=== PATIENT | female | born 1980 | race Caucasian/White ===

== ENCOUNTER → 2017-09-11 | Outpatient (CLI) | payer MEDICARE ==
[~2017-09-11] MED LIST: CAL25 FT; CEPH500T7 PO; CHOL378P6 PO; CLON-308 PO; CYCL10TA29 PO; DIA5 PO; DICL-195 PO; DICY20TA70 PO; DIPH-1 PO; DIPH-543 PO; ERGO500037 PO; FLUC150T40 PO; FLUV50TA18 PO; GLYC1TAB13 PO; HYDR-2966 PO; IBUP800T37 PO; IOPAMIDOL 76% 75 ML INFUS BTL 75 ML ONE; LAMOT150PT PO; LEVO-3 PO; LEVO50TA86 PO; LEVO75TA73 PO; LIPA1CAP8 PO; LIT300CAP PO; LITH600C6 PO; LOR5/325 PO; LOSA25TA50 PO; LOSA50TA72 PO; MINO100C27 PO; NEBI5TAB PO; NS 0.9% 50 ML VIAL 50 ML ONE; OMEP40CA48 PO; ONDA4TAB97 PO; ONDA8TAB91 PO; ONDA8TAB98 PO; PERP4TAB37 PO; PERP8TAB PO; POTA-28 PO; POTA20TA94 PO; PRED20TA6 PO; PROM-110 PO; PROM12.556 PO; RANI150C17 PO; SUCR1TAB85 PO; SULF-198 PO; TRAM-420 PO; TRAM-627 PO
--- NOTE | 2017-09-11 16:58 | RADIOLOGY IMAGING REPORT ---
FACILITY: [facility] - [place], [place] PATIENT NAME: Kriss Azevedo : 1980 MR: [id number] V: [id number] EXAM DATE: ORDERING PHYSICIAN: VILMA ROWAN TECHNOLOGIST: Location: [facility] [place] Patient: Kriss Azevedo : 1980 Visit/Account:[id number] Date of Sevice: 09/11/2017 ABDOMEN/PELVIS WITH CONTRAST HISTORY: Right upper quadrant pain x5 days TECHNIQUE: Following administration of IV contrast contiguous axial images acquired through the abdom en/pelvis. Coronal and sagittal reformatting also performed. One of the following dose optimization techniques was utilized in the performance of this exam: Automated exposure control; adjustment of t he mA and/or kV according to the patient's size; or use of an iterative reconstruction technique. S pecific details can be referenced in the facility's radiology CT exam operational policy. CONTRAST: 75 mL Isovue-370 COMPARISON: None. FINDINGS: Visualized lung bases: Negative. Hepatobiliary: There is diffuse decreased attenuation through the liver compatible with hepatic stea tosis. No focal liver lesions are seen. Gallbladder is not identified and patient may be status post cholecystectomy. Spleen: Negative. Adrenals: Negative. Pancreas: Negative. Kidneys ureters or bladder: Both kidneys have numerous small circumscribed hypodense nodules scattere d through the renal cortices. There are approximately 20 small nodules in each kidney most measuring only several millimeters in diameter although the largest in the right kidney measures 1.2 cm in larg est in the left kidney measures 1.0 cm diameter. Density measurements range from near water to almost 50 Hounsfield units. Genitalia: Remote partial hysterectomy. The ovaries remain in place. There is a 1.6 cm hyperdense no dule in the right ovary which may represent a hemorrhagic cyst. There is a small amount of adjacent f ree fluid. GI: Surgical clip is seen at the cecum consistent with a previous appendectomy. Colon otherwise unre markable. Small bowel normal. Vessels/spaces/nodes: Negative. Bones/soft tissues: Negative. Additional findings: None pertinent. IMPRESSION: Hepatic steatosis. No other pathology seen in the right upper quadrant to explain patient's right upp er quadrant pain. Evidence of previous partial hysterectomy but I believe the ovaries remain in place. Patient probably has a small hemorrhagic follicle in the right ovary with small amount of free fluid in the pelvis. Numerous small nodules of varying densities in both kidneys as described above but all are hypodense to the contrasted cortical parenchyma. These may represent numerous small proteinaceous cysts and levin ses the possibility of a polycystic kidney disease variant or incomplete penetrance. Correlate with a ny family history. I would suggest sonographic surveillance with possible follow-up study in 6-12 mon ths. Report Dictated By: Anoop Retana MD at 09/11/2017 4:29 PM Report E-Signed By: Anoop Retana MD at 09/11/2017 4:52 PM WSN:[id number]
== END ==
LOC: CT 01:14
PROVIDERS: ATTEND Surgery
DX: K76.0 Fatty (change of) liver, not elsewhere classified (principal); N28.89 Other specified disorders of kidney and ureter; Z90.49 Acquired absence of other specified parts of digestive tract; Z90.710 Acquired absence of both cervix and uterus
CPT/HCPCS: J7050; Q9967; 74177

== ENCOUNTER 2017-10-01 19:06 | Emergency (ER) | payer MEDICARE, MEDICAID ==
[~2017-10-01 19:06] MED LIST changes: +CARV12.578 PO; -IOPAMIDOL 76% 75 ML INFUS BTL 75 ML ONE; -NS 0.9% 50 ML VIAL 50 ML ONE
--- NOTE | 2017-10-01 19:41 | ER Report ---
History and Physical Time Seen By MD: 19:40 Hx. of Stated Complaint: Patient reporting N/v/d and extreme thirst. HPI/ROS CHIEF COMPLAINT: Diarrhea HISTORY OF PRESENT ILLNESS: 37-year-old female patient presents to emergency room with complaint of diarrhea. Patient states she's been having for large bouts of diarrhea today. She states that she was feeling fine yesterday. She denies having any fevers, chills, nausea or vomiting. She states she has taken the medication which was prescribed for her diarrhea. She states there that there was no improvement with the medication. She states that she was in contact with Dr. Rowan, general surgeon, who recommended that she come in to the emergency room for further evaluation with labs and stool culture. REVIEW OF SYSTEMS: Respiratory: No cough, no dyspnea. Cardiovascular: No chest pain, no palpitations. Gastrointestinal: As noted above Musculoskeletal: No back pain. Allergies: Coded Allergies: aripiprazole (Verified Allergy, Unknown, FACIAL AND NECK SWELLING, 02/04/16 ) asenapine (Verified Allergy, Unknown, NUMB TONGUE, 02/04/16) gabapentin (Verified Allergy, Unknown, MANIC, 02/04/16) hydralazine (Verified Allergy, Unknown, 02/04/16) paliperidone (Verified Allergy, Unknown, SLEEPS TOO MUCH, 02/04/16) quetiapine (Verified Allergy, Unknown, EXCESSIVE EATING, 02/04/16) sertraline (Verified Allergy, Unknown, 02/04/16) ziprasidone (Verified Allergy, Unknown, EXCESSIVE SLEEPING, 02/04/16) vortioxetine (Unverified Adverse Reaction, Intermediate, 03/30/17) Rash Home Meds Active Scripts Omeprazole (OMEPRAZOLE) 40 Mg Capsule.dr, 1 CAP PO BID, #60 CAP 3 Refills Prov:VILMA ROWAN MD 07/29/17 Diphenoxylate Hcl/Atropine (LOMOTIL TABLET) 1 Each Tablet, 1-2 TAB PO TID Y for DIARRHEA, #120 TAB 5 Refills Prov:VILMA ROWAN MD 07/29/17 Cholestyramine (With Sugar) (CHOLESTYRAMINE POWDER) 378 Gm Powder, 4 GM PO QID, #378 GM 3 Refills Take 4 times/day before eating Prov:VILMA ROWAN MD 07/14/17 Glycopyrrolate (GLYCOPYRROLATE) 1 Mg Tablet, 1 TAB PO QPM, #30 TAB 6 Refills Prov:VILMA ROWAN MD 06/09/17 Lipase/Protease/Amylase (MELINDA MEEKS 36,000 UNITS CAPSULE) 1 Each Capsule.dr, 1 CAP PO QID, #120 CAP 6 Refills Take 1 capsule before meals, 4 times every day Prov:VILMA ROWAN MD 06/06/17 Promethazine Hcl (PROMETHAZINE HCL) 25 Mg Tablet, 1 TAB PO Q8H Y for NAUSEA/ VOMITING, #30 TAB 3 Refills Prov:VILMA ROWAN MD 06/03/17 Cephalexin 500 Mg Tab (KEFLEX 500 MG TAB) 500 Mg Tablet, 500 MG PO TID for infection, #15 TAB Prov:DEBBY PINZON DO 03/30/17 Reported Medications Carvedilol (CARVEDILOL) 12.5 Mg Tablet, 12.5 MG PO BID, #10 TAB 09/17/17 Perphenazine (PERPHENAZINE) 8 Mg Tablet, 8 MG PO 03/30/17 Losartan Potassium (LOSARTAN POTASSIUM) 50 Mg Tablet, 50 MG PO QDAY 03/30/17 Mead Carbonate (LITHIUM CARBONATE) 600 Mg Capsule, 900 MG PO QDAY, CAPSULE 03/30/17 Levothyroxine Sodium (LEVOTHYROXINE SODIUM) 75 Mcg Tablet, 75 MCG PO QDAY, TAB 03/30/17 Calcitriol (CALCITRIOL) 0.25 Mcg Cap, 0.25 MCG FT QDAY, CAP 01/13/17 Ondansetron Hcl (ZOFRAN) 8 Mg Tablet, 8 MG PO Q12H, TAB 11/20/15 Minocycline Hcl (MINOCYCLINE HCL) 100 Mg Capsule, 200 MG PO BID, CAPSULE 11/20/15 Fluvoxamine Maleate (FLUVOXAMINE MALEATE) 50 Mg Tablet, 50 MG PO QDAY 07/20/15 Minocycline Hcl (MINOCYCLINE HCL) 100 Mg Capsule, 100 MG PO BID, CAPSULE 07/20/15 Clonazepam (CLONAZEPAM) 2 Mg Tablet, 2 MG PO PRN, #6 TAB 07/20/15 Lamotrigine (LAMICTAL) 150 Mg Tablet, 150 MG PO BID 07/20/15 Omeprazole (OMEPRAZOLE) 40 Mg Capsule.dr, 40 MG PO BID, CAP 07/20/15 Past Medical/Surgical History Patient has a past medical history of seizures, hypertension, irritable bowel, reflux, chronic kidney disease, parathyroid tumor, hypothyroidism, PTSD, bipolar , MEN1 cancer, parathyroid tumors. Patient has a surgical history of breast implants, jaw and nose reconstruction, silicone implant and chin, hysterectomy, cholecystectomy, appendectomy, chemotherapy port installed. Reviewed Nurses Notes: Yes Hx Smoking: No Smoking Status: Never Smoker Exposure to Second Hand Smoke?: No Hx Substance Use Disorder: No Hx Alcohol Use: No Constitutional Vital Sign - Last 24 Hours 10/01/17 10/01/17 10/01/17 10/01/17 19:11 19:33 19:34 19:36 Temp 98.5 Pulse 90 98 99 Resp 20 18 B/P (MAP) 137/90 135/93 (107) 135/93 Pulse Ox 100 97 97 O2 Delivery Room Air 10/01/17 10/01/17 10/01/17 10/01/17 19:38 19:40 19:41 19:46 Pulse 91 B/P (MAP) 123/88 (100) 128/90 (103) Pulse Ox 95 100 10/01/17 10/01/17 10/01/17 10/01/17 19:51 19:56 20:01 20:06 Pulse 87 86 ? Pulse Ox 97 95 10/01/17 10/01/17 10/01/17 10/01/17 20:11 20:20 20:21 20:26 Pulse ??? 81 78 B/P (MAP) 130/84 (99) Pulse Ox 100 98 10/01/17 10/01/17 10/01/17 10/01/17 20:31 20:36 20:40 20:46 Pulse 82 ? B/P (MAP) ???/??? (9595) Pulse Ox 95 10/01/17 10/01/17 10/01/17 10/01/17 20:51 21:00 21:01 21:06 Pulse ? B/P (MAP) ???/??? (1665) 10/01/17 10/01/17 10/01/17 10/01/17 21:11 21:20 21:21 21:26 Pulse ? B/P (MAP) ???/??? (1665) 10/01/17 10/01/17 10/01/17 10/01/17 21:30 21:31 21:36 21:41 Pulse 72 74 79 B/P (MAP) 139/91 (107) Pulse Ox 100 98 100 10/01/17 10/01/17 10/01/17 10/01/17 21:46 22:00 22:15 22:30 Pulse 76 Pulse Ox 100 100 96 94 10/01/17 10/01/17 22:35 23:07 Pulse 96 88 Resp 16 B/P (MAP) 125/89 (101) 115/78 (90) Pulse Ox 100 100 O2 Delivery Room Air Physical Exam General Appearance: The patient is alert, has no immediate need for airway protection and no current signs of toxicity. ENT: Tympanic membranes are pearly-shepard, auditory canals are patent, mucous membranes are moist. Respiratory: Chest is non tender, lungs are clear to auscultation. Cardiac: regular rate and rhythm Gastrointestinal: Abdomen is soft and non tender, no masses, bowel sounds normal. Musculoskeletal: Neck: Neck is supple and non tender. Extremities have full range of motion and are non tender. Skin: No rashes or lesions. DIFFERENTIAL DIAGNOSIS: After history and physical exam differential diagnosis was considered for nausea and vomiting including but not limited to gastroenteritis, gastritis, appendicitis, and medication side effect. Medical Decision Making Data Points Result Diagram: 10/01/17 0000 10/01/17 0000 Laboratory Hematology Test 10/01/17 00:00 10/01/17 19:15 10/01/17 19:31 Red Blood Count 3.93 M/uL (4.17-5.56) Mean Corpuscular Volume 91.1 fL (80.0-96.0) Mean Corpuscular Hemoglobin 30.5 pg (26.0-33.0) Mean Corpuscular Hemoglobin Concent 33.4 g/dL (32.0-36.0) Red Cell Distribution Width 13.2 % (11.5-14.5) Mean Platelet Volume 7.7 fL (7.2-11.1) Neutrophils (%) (Auto) 60.7 % (39.4-72.5) Lymphocytes (%) (Auto) 28.3 % (17.6-49.6) Monocytes (%) (Auto) 8.1 % (4.1-12.4) Eosinophils (%) (Auto) 2.6 % (0.4-6.7) Basophils (%) (Auto) 0.3 % (0.3-1.4) Nucleated RBC Relative Count (auto) 0.1 /100WBC Neutrophils # (Auto) 4.6 K/uL (2.0-7.4) Lymphocytes # (Auto) 2.1 K/uL (1.3-3.6) Monocytes # (Auto) 0.6 K/uL (0.3-1.0) Eosinophils # (Auto) 0.2 K/uL (0.0-0.5) Basophils # (Auto) 0.0 K/uL (0.0-0.1) Nucleated RBC Absolute Count (auto) 0.01 K/uL Sodium Level 139 mmol/L (137-145) Potassium Level 4.2 mmol/L (3.5-5.0) Chloride Level 109 mmol/L (98-107) Carbon Dioxide Level 21 mmol/L (22-31) Blood Urea Nitrogen 11 mg/dl (7-18) Creatinine 1.50 mg/dl (0.52-1.04) Glomerular Filtration Rate Calc 39.5 Random Glucose 95 mg/dl (75-110) Calcium Level 9.0 mg/dl (8.4-10.2) Total Bilirubin 0.3 mg/dl (0.2-1.3) Aspartate Amino Transf (AST/SGOT) 42 U/L (0-35) Alanine Aminotransferase (ALT/SGPT) 56 U/L (0-56) Alkaline Phosphatase 72 U/L (0-126) Total Protein 5.6 gm/dl (6.3-8.2) Albumin 2.9 g/dl (3.5-5.0) Amylase Level 83 U/L (0-110) Lipase 126 U/L (23-300) Urine Color Straw Urine Clarity Slightly-cloudy Urine pH 7.0 pH (4.8-9.5) Urine Specific [place] 1.004 Urine Protein Negative mg/dL (NEGATIVE) Urine Glucose (UA) Negative mg/dL (NEGATIVE) Urine Ketones Negative mg/dL (NEGATIVE) Urine Blood Negative (NEGATIVE) Urine Nitrite Negative (NEGATIVE) Urine Bilirubin Negative (NEGATIVE) Urine Urobilinogen Negative mg/dL (0.2-1.9) Urine Leukocyte Esterase Negative (NEGATIVE) Urine RBC <1 /HPF (0-2/HPF) Urine WBC 2 /HPF (0-5/HPF) Urine Squamous Epithelial Cells Many /LPF (</=FEW) Urine Bacteria Many /HPF (NONE-FEW) Urine Hyaline Casts Few /LPF (NONE-FEW) Urine Mucus None /HPF (NONE-FEW) Stool Occult Blood (IFOB) Negative (NEGATIVE) Stool Leukocytes, Qualitative Negative Clostridium Difficile Toxin A & B Negative Clostridium difficile Antigen Negative Chemistry Test 10/01/17 00:00 10/01/17 19:15 10/01/17 19:31 White Blood Count 7.6 k/uL (4.5-11.0) Red Blood Count 3.93 M/uL (4.17-5.56) Hemoglobin 12.0 g/dL (12.0-16.0) Hematocrit 35.8 % (34.0-47.0) Mean Corpuscular Volume 91.1 fL (80.0-96.0) Mean Corpuscular Hemoglobin 30.5 pg (26.0-33.0) Mean Corpuscular Hemoglobin Concent 33.4 g/dL (32.0-36.0) Red Cell Distribution Width 13.2 % (11.5-14.5) Platelet Count 222 K/uL (150-450) Mean Platelet Volume 7.7 fL (7.2-11.1) Neutrophils (%) (Auto) 60.7 % (39.4-72.5) Lymphocytes (%) (Auto) 28.3 % (17.6-49.6) Monocytes (%) (Auto) 8.1 % (4.1-12.4) Eosinophils (%) (Auto) 2.6 % (0.4-6.7) Basophils (%) (Auto) 0.3 % (0.3-1.4) Nucleated RBC Relative Count (auto) 0.1 /100WBC Neutrophils # (Auto) 4.6 K/uL (2.0-7.4) Lymphocytes # (Auto) 2.1 K/uL (1.3-3.6) Monocytes # (Auto) 0.6 K/uL (0.3-1.0) Eosinophils # (Auto) 0.2 K/uL (0.0-0.5) Basophils # (Auto) 0.0 K/uL (0.0-0.1) Nucleated RBC Absolute Count (auto) 0.01 K/uL Glomerular Filtration Rate Calc 39.5 Calcium Level 9.0 mg/dl (8.4-10.2) Total Bilirubin 0.3 mg/dl (0.2-1.3) Aspartate Amino Transf (AST/SGOT) 42 U/L (0-35) Alanine Aminotransferase (ALT/SGPT) 56 U/L (0-56) Alkaline Phosphatase 72 U/L (0-126) Total Protein 5.6 gm/dl (6.3-8.2) Albumin 2.9 g/dl (3.5-5.0) Amylase Level 83 U/L (0-110) Lipase 126 U/L (23-300) Urine Color Straw Urine Clarity Slightly-cloudy Urine pH 7.0 pH (4.8-9.5) Urine Specific [place] 1.004 Urine Protein Negative mg/dL (NEGATIVE) Urine Glucose (UA) Negative mg/dL (NEGATIVE) Urine Ketones Negative mg/dL (NEGATIVE) Urine Blood Negative (NEGATIVE) Urine Nitrite Negative (NEGATIVE) Urine Bilirubin Negative (NEGATIVE) Urine Urobilinogen Negative mg/dL (0.2-1.9) Urine Leukocyte Esterase Negative (NEGATIVE) Urine RBC <1 /HPF (0-2/HPF) Urine WBC 2 /HPF (0-5/HPF) Urine Squamous Epithelial Cells Many /LPF (</=FEW) Urine Bacteria Many /HPF (NONE-FEW) Urine Hyaline Casts Few /LPF (NONE-FEW) Urine Mucus None /HPF (NONE-FEW) Stool Occult Blood (IFOB) Negative (NEGATIVE) Stool Leukocytes, Qualitative Negative Clostridium Difficile Toxin A & B Negative Clostridium difficile Antigen Negative Urinalysis Test 10/01/17 19:15 Urine Color Straw Urine Clarity Slightly-cloudy Urine pH 7.0 pH (4.8-9.5) Urine Specific [place] 1.004 Urine Protein Negative mg/dL (NEGATIVE) Urine Glucose (UA) Negative mg/dL (NEGATIVE) Urine Ketones Negative mg/dL (NEGATIVE) Urine Blood Negative (NEGATIVE) Urine Nitrite Negative (NEGATIVE) Urine Bilirubin Negative (NEGATIVE) Urine Urobilinogen Negative mg/dL (0.2-1.9) Urine Leukocyte Esterase Negative (NEGATIVE) Urine RBC <1 /HPF (0-2/HPF) Urine WBC 2 /HPF (0-5/HPF) Urine Squamous Epithelial Cells Many /LPF (</=FEW) Urine Bacteria Many /HPF (NONE-FEW) Urine Hyaline Casts Few /LPF (NONE-FEW) Urine Mucus None /HPF (NONE-FEW) Microbiology Microbiology Date/Time Source Procedure Growth Status 10/01/17 19:31 Stool Stool Culture - Preliminary NORMAL SO FAR, CULTURE SET UP LATE, C... Resulted EKG/Imaging Imaging INDICATION: uncontrollable diarrhea EXAM DATE: 10/01/2017 7:51 PM COMPARISON: CT abdomen and pelvis 09/11/2017. FINDINGS: PA and lateral views of the chest, upright and supine AP views of the abdomen ( 5 images total). The lungs are well-expanded and clear. No pleural effusion or pneumothorax. Heart size is normal. Right IJ central venous catheter with port terminates in the superior vena cava. Bowel gas pattern is nonobstructive. No pneumatosis, pneumoperitoneum or portal venous gas. No evidence of large volume ascites or mass. Several air-fluid levels in the proximal colon. No acute osseous abnormality. IMPRESSION: Air-fluid levels in the proximal colon are nonspecific but could indicate colitis. Otherwise nonacute. Report Dictated By: Arjun Iniguez MD at 10/01/2017 9:26 PM Report E-Signed By: Arjun Iniguez MD at 10/01/2017 9:28 PM ED Course/Re-evaluation ED Course Patient was admitted to exam room, history and physical were obtained. Differential diagnoses were considered. On examination patient had no abdominal tenderness, lungs are clear, heart was regular. A CBC, CMP, occult stool, stool WBC, C. difficile, O&P were done. CBC was unremarkable, CMP showed patient did have an elevated creatinine of 1.5. Patient typically runs between one and 1.2 with a creatinine. An abdominal and chest x-ray was done. The imaging was unremarkable. I discussed the findings with Dr. Rowan, surgeon, who sees patient on regular basis. Made a plan that we will give her a second liter of normal saline here. Discharge her home at that time. We'll have her follow-up with him next week and have a repeat CMP done prior to that to reevaluate her creatinine. She is to make sure that she drinks plenty of fluids. Patient is return to emergency room if condition worsens. I discussed this with patient and she verbalized understanding and agreement. Decision to Disposition Date: Oct 01, 2017 Decision to Disposition Time: 21:51 Depart Departure Latest Vital Signs Vital Signs Date Time Temp Pulse Resp B/P (MAP) Pulse Ox O2 Delivery O2 Flow Rate FiO2 10/01/17 23:07 88 16 115/78 (90) 100 Room Air 10/01/17 19:34 98.5 Impression: Primary Impression: Diarrhea Additional Impression: Elevated serum creatinine Condition: Improved Disposition: HOME OR SELF-CARE Referrals: JOSH CAGE PA-C (PCP) Patient Instructions: Acute Diarrhea (ED) Additional Instructions: Increase fluid intake. Have water to sip on with you at all times. Follow up with Dr. Rowan on Friday or Friday. Have a repeat CMP done before going in, I will give you an order for that. Return to the ER if condition worsens. Continue with current medications. Problem Qualifiers Primary Impression: Diarrhea Diarrhea type: unspecified type Qualified Codes: R19.7 - Diarrhea, unspecified BRAD COLBY Oct 01, 2017 19:41
[2017-10-01] MEDS ORDERED: NS(*) 0.9% 1000 ML BAG 1,000 ML IV ONE ×2 (19:51→21:50)
[2017-10-01 21:08] LABS: PLATELET COUNT, AUTOMATED 222 K/uL (150-450)
--- NOTE | 2017-10-01 21:34 | RADIOLOGY IMAGING REPORT ---
FACILITY: [facility] PATIENT NAME: Kriss Azevedo : 1980 MR: [id number] V: [id number] EXAM DATE: ORDERING PHYSICIAN: BRAD COLBY TECHNOLOGIST: Location: [facility] [place] Patient: Kriss Azevedo : 1980 Visit/Account:[id number] Date of Sevice: 10/01/2017 INDICATION: uncontrollable diarrhea EXAM DATE: 10/01/2017 7:51 PM COMPARISON: CT abdomen and pelvis 09/11/2017. FINDINGS: PA and lateral views of the chest, upright and supine AP views of the abdomen (5 images total). The lungs are well-expanded and clear. No pleural effusion or pneumothorax. Heart size is normal. Ri ght IJ central venous catheter with port terminates in the superior vena cava. Bowel gas pattern is nonobstructive. No pneumatosis, pneumoperitoneum or portal venous gas. No eviden ce of large volume ascites or mass. Several air-fluid levels in the proximal colon. No acute osseous abnormality. IMPRESSION: Air-fluid levels in the proximal colon are nonspecific but could indicate colitis. Other forbes nonacute. Report Dictated By: Arjun Iniguez MD at 10/01/2017 9:26 PM Report E-Signed By: Arjun Iniguez MD at 10/01/2017 9:28 PM WSN:[id number]
--- NOTE | 2017-10-01 21:34 | RADIOLOGY IMAGING REPORT ---
FACILITY: [facility] - [place] PATIENT NAME: Kriss Azevedo : 1980 MR: [id number] V: [id number] EXAM DATE: ORDERING PHYSICIAN: BRAD COLBY TECHNOLOGIST: Location: [facility] - [place] Patient: Kriss Azevedo : 1980 Visit/Account:[id number] Date of Sevice: 10/01/2017 INDICATION: uncontrollable diarrhea EXAM DATE: 10/01/2017 7:51 PM COMPARISON: CT abdomen and pelvis 09/11/2017. FINDINGS: PA and lateral views of the chest, upright and supine AP views of the abdomen (5 images total). The lungs are well-expanded and clear. No pleural effusion or pneumothorax. Heart size is normal. Ri ght IJ central venous catheter with port terminates in the superior vena cava. Bowel gas pattern is nonobstructive. No pneumatosis, pneumoperitoneum or portal venous gas. No eviden ce of large volume ascites or mass. Several air-fluid levels in the proximal colon. No acute osseous abnormality. IMPRESSION: Air-fluid levels in the proximal colon are nonspecific but could indicate colitis. Other forbes nonacute. Report Dictated By: Arjun Iniguez MD at 10/01/2017 9:26 PM Report E-Signed By: Arjun Iniguez MD at 10/01/2017 9:28 PM WSN:[id number]
[2017-10-01] MEDS ORDERED: HEPARIN FLSH (PORT) 500 UN/5ML ONE (23:06)
[2017-10-01 23:07] VITALS: BP 115/78
== END 2017-10-01 23:23 | disposition home or self-care (01) ==
LOC: ER 19:53
DX: R19.7 Diarrhea, unspecified (principal); R79.89 Other specified abnormal findings of blood chemistry
CPT/HCPCS: 71046; 74019; 81001; 82150; 82274; 83630; 83690; 85025; 87045; 87177; 87324; 87449; 96360; 96361; 99284; J1642; J7030; 82040; 82247; 82310; 82374; 82435; 82565; 82947; 84075; 84132; 84155; 84295; 84450; 84460; 84520

== ENCOUNTER → 2017-10-06 | Outpatient (CLI) | payer MEDICARE, MEDICAID ==
--- NOTE | 2017-10-06 15:07 | RADIOLOGY IMAGING REPORT ---
FACILITY: [facility] - [place] PATIENT NAME: Kriss Azevedo : 1980 MR: [id number] V: [id number] EXAM DATE: ORDERING PHYSICIAN: VILMA ROWAN TECHNOLOGIST: Location: [facility] - [place] Patient: Kriss Azevedo : 1980 Visit/Account:[id number] Date of Sevice: 10/06/2017 Exam type: HAND COMPLETE LEFT History: Left hand swelling, no known injury Comparison: None. Findings: There is no evidence of acute fracture, dislocation or significant arthritic change involving the lef t hand. No radiopaque soft tissue foreign bodies are seen. There does appear to be soft tissue swel ling about the fingers particularly the second through fifth fingers IMPRESSION: 1. Soft tissue swelling of the second through fifth fingers although no underlying fracture dislocat ion arthritic change or radiopaque foreign body seen Report Dictated By: Mei Carbone MD at 10/06/2017 2:58 PM Report E-Signed By: Mei Carbone MD at 10/06/2017 3:04 PM WSN:[email or web address]
--- NOTE | 2017-10-06 15:38 | RADIOLOGY IMAGING REPORT ---
[place] [facility] [place]IENT NAME: Kriss Azevedo : 1980 MR: [id number] V: [id number] EXAM DATE: ORDERING PHYSICIAN: VILMA ROWAN TECHNOLOGIST: Location: [facility] [place] Patient: Kriss Azevedo : 1980 Visit/Account:[id number] Date of Sevice: 10/06/2017 Exam type: VENOUS DOPP UPPER LEFT EXTREMI History: Swelling of left hand Comparison: None. Findings: The left upper chimney veins were imaged including the left internal jugular vein the left subclavian vein the left axillary vein left basilic vein the left brachial vein left radial vein and ulnar vein s revealing no evidence of intraluminal thrombi. The veins were compressible and demonstrated normal phasicity and pulsatility IMPRESSION: 1. No sonographic evidence DVT involving the left upper extremity veins Report Dictated By: Mei Carbone MD at 10/06/2017 3:33 PM Report E-Signed By: Mei Carbone MD at 10/06/2017 3:34 PM WSN:[email or web address]
== END ==
LOC: RAD 14:24
PROVIDERS: ATTEND Surgery
DX: M79.89 Other specified soft tissue disorders (principal)

== ENCOUNTER 2017-10-28 14:12 | Outpatient (RCR) | payer MEDICARE ==
[2017-09-11] MEDS: LIDOCAINE/SOD BICARB 8.4% SYR ID PRN (14:40)
[2017-10-06] MEDS: HEPARIN FLSH (PORT) 500 UN/5ML IVP PRN (08:44)
[2017-10-06] MEDS: LIDOCAINE/SOD BICARB 8.4% SYR ID PRN (08:44)
[2017-10-06 08:46] VITALS: BP 117/88
[~2017-10-28 14:12] MED LIST changes: +ALTEPLASE RECOMB 2 MG VIAL IVP PRN; +DEXTROSE 5%(*) 100 ML BAG 100 ML IVPB PRN; +NS(*) 0.9% 100 ML BAG 100 ML IVPB PRN; +NS(*) 0.9% 500 ML BAG 500 ML IV PRN; +WATER STERILE 10 ML VIAL IVP PRN
[2017-10-28 14:39] VITALS: BP 117/83
[2017-10-28] MEDS: HEPARIN FLSH (PORT) 500 UN/5ML IVP PRN (14:41)
[2017-10-28] MEDS: LIDOCAINE/SOD BICARB 8.4% SYR ID PRN (14:41)
[2017-10-28 14:58] LABS: PLATELET COUNT, AUTOMATED 264 K/uL (150-450)
[2017-10-30] MEDS ORDERED: DICY20TA70 PO (11:09)
[2017-10-30] MEDS ORDERED: DIPH-740 PO (11:09)
[2017-10-30] MEDS ORDERED: LAMO300T2 PO (11:09)
[2017-10-30] MEDS ORDERED: DIPH-543 PO (11:09)
[2017-10-30] MEDS ORDERED: MINO100T8 PO (11:09)
[2017-10-30] MEDS ORDERED: CHOL4PAC15 PO (11:09)
[2017-10-30] MEDS ORDERED: LIT300CAP PO (11:09)
[2017-10-30] MEDS ORDERED: CLON-390 PO (11:09)
[2017-10-30] MEDS ORDERED: ACET-1966 PO (11:09)
[2017-10-30] MEDS ORDERED: LEVO-3 PO (11:09)
[2017-11-04] MEDS ORDERED: ONDA4TAB PO (15:42)
[2017-11-10] MEDS ORDERED: ONDA8TAB98 PO (12:59)
== END 2017-12-09 ==
LOC: SPU 14:12
PROVIDERS: ATTEND Surgery
DX: R10.11 Right upper quadrant pain (principal); E03.9 Hypothyroidism, unspecified; E21.3 Hyperparathyroidism, unspecified; R19.7 Diarrhea, unspecified; R11.2 Nausea with vomiting, unspecified; E31.21 Multiple endocrine neoplasia [MEN] type I; R53.83 Other fatigue
CPT/HCPCS: 36591; 82024; 82248; 82306; 82330; 82533; 83690; 83825; 83970; 84443; 85025; 85027; J1642; J7040; 82040; 82247; 82310; 82374; 82435; 82565; 82947; 84075; 84132; 84155; 84295; 84450; 84460; 84520

== ENCOUNTER → 2017-11-19 | Outpatient (CLI) | payer MEDICARE, MEDICAID ==
[~2017-11-19] MED LIST changes: +ACET-1966 PO; -ALTEPLASE RECOMB 2 MG VIAL IVP PRN; +CHOL4PAC15 PO; +CLON-390 PO; -DEXTROSE 5%(*) 100 ML BAG 100 ML IVPB PRN; +DIPH-740 PO; +LAMO300T2 PO; +MINO100T8 PO; -NS(*) 0.9% 100 ML BAG 100 ML IVPB PRN; -NS(*) 0.9% 500 ML BAG 500 ML IV PRN; +ONDA4TAB PO; -WATER STERILE 10 ML VIAL IVP PRN
--- NOTE | 2017-11-19 13:43 | RADIOLOGY IMAGING REPORT ---
FACILITY: [facility] PATIENT NAME: Kriss Azevedo : 1980 MR: [id number] V: [id number] EXAM DATE: ORDERING PHYSICIAN: YASSINE WELCH TECHNOLOGIST: Location: [facility] Patient: Kriss Azevedo : 1980 Visit/Account:[id number] Date of Sevice: 11/19/2017 CAROTID HISTORY: right pulsatile tinnitis COMPARISON: None. FINDINGS: Grayscale, duplex and color Doppler interrogation of the extracranial carotid and vertebral arteries was performed bilateral. On the right, peak systolic velocities within the common and internal carotid arteries are 123 and 97 cm/sec respectively. No significant plaque identified. Antegrade flow within the common, internal and external carotid arteries as well as vertebral artery. ICA/CCA ratio 0.8. On the left, peak systolic velocities within the common and internal carotid arteries are 138 and 100 cm/sec respectively. No significant plaque demonstrated. Antegrade flow within the common, interna l and external carotid arteries as well as vertebral artery. ICA/CCA ratio 0.75. IMPRESSION: No hemodynamically significant lesions identified Incidental note of several cysts in the thyroid gland. Also noted is a well-circumscribed hypoechoic nodule just posterior to the left lobe measuring approximately 1.1 x 0.7 cm which may represent a ly mph node or possibly a parathyroid gland Velocity criteria are extrapolated from diameter data as defined by the Society of Radiologists in Ul trasound Consensus Conference Radiology 2003; 229;340-346 Report Dictated By: Mei Carbone MD at 11/19/2017 1:36 PM Report E-Signed By: Mei Carbone MD at 11/19/2017 1:39 PM WSN:[id number]
== END ==
LOC: US 01:10
PROVIDERS: ATTEND Otolaryngology
DX: E04.9 Nontoxic goiter, unspecified (principal)
CPT/HCPCS: 93880

== ENCOUNTER → 2017-11-19 | Outpatient (CLI) | payer MEDICARE, MEDICAID | LOC: AUD 13:45 | PROVIDERS: ATTEND Otolaryngology | DX: H93.A1 Pulsatile tinnitus, right ear (principal) | CPT/HCPCS: 92557; 92570 ==

== ENCOUNTER → 2017-11-24 | Outpatient (CLI) | payer MEDICARE, MEDICAID ==
--- NOTE | 2017-11-24 13:02 | RADIOLOGY IMAGING REPORT ---
FACILITY: [facility] PATIENT NAME: Kriss Azevedo : 1980 MR: [id number] V: [id number] EXAM DATE: ORDERING PHYSICIAN: YASSINE WELCH TECHNOLOGIST: Location: [facility] Patient: Kriss Azevedo : 1980 Visit/Account:[id number] Date of Sevice: 11/24/2017 Thyroid Ultrasound HISTORY: Hyperparathyroidism. COMPARISON: 06/13/2016 FINDINGS: SIZE: Mildly enlarged left lobe. Right lobe: 4.2 x 1.4 x 2.0 cm (previously 4.5 x 1.7 x 1.5 cm) Left lobe: 5.3 x 1.4 x 1.7 cm (previously 4.4 x 1.6 x 1.6 cm) Isthmus: 4 mm PARENCHYMA: Homogeneous. NODULES: Right lobe: * Benign cystic nodule inferiorly measures 5 mm * 2 hypoechoic nodules seen inferiorly measuring 3-4 mm in size. One of these was seen previously. These do not meet current criteria for biopsy Left lobe: * Several benign-appearing cystic nodules are identified. The largest of these measures 9 mm in gre atest dimension. No suspicious nodules. Isthmus: * None discrete. VASCULARITY: Within normal limits. ADDITIONAL FINDINGS: There is a hypoechoic nodule seen posterior to the left lobe inferiorly measurin g 1.1 x 0.7 x 0.9 cm in size. Appearance and location would favor a parathyroid gland. IMPRESSION: 1. Mild enlargement of the left thyroid lobe. Measurements as above. 2. Benign cystic nodules within both lobes of the thyroid gland. 3. 2 hypoechoic low-attenuation nodules within the inferior portion of the right lobe which may repr esent partially cystic nodules. These do not meet current criteria for biopsy. Continued sonographi c follow-up recommended. 4. Findings most compatible with a left-sided parathyroid gland measuring 11 mm in greatest dimensio n along the posterior and inferior margin of the left thyroid lobe. REFERENCE: 2015 [place] [employer] Management Guidelines for Adult Patients with Thyroid Nodules and D ifferentiated Thyroid Cancer: The [place] [employer] Guidelines Task Force on Thyroid Nodul es and Differentiated Thyroid Cancer. SONOGRAPHIC PATTERNS: * Benign: Purely cystic nodules (no solid component); estimated risk of malignancy <1 percent; no bi opsy recommended. * Very Low Suspicion: Spongiform or partially cystic nodules without any of the sonographic features described in low, intermediate, or high suspicion patterns; estimated risk of malignancy <3 percent; consider FNA at > 2 cm (Observation without FNA is also a reasonable option). * Low Suspicion: Isoechoic or hyperechoic solid nodule, or partially cystic nodule with eccentric so lid areas, without microcalcification, irregular margin or ETE (extra-thyroidal extension), or taller than wide shape; estimated risk of malignancy 5-10 percent; recommend FNA at >1.5 cm. * Intermediate Suspicion: Hypoechoic solid nodule with smooth margins without microcalcifications, E TE (extra-thyroidal extension), or taller than wide shape; estimated risk of malignancy 10-20 percent ; recommend FNA at > 1 cm. * High Suspicion: Solid hypoechoic nodule or solid hypoechoic component of a partially cystic nodule with one or more of the following features: irregular margins (infiltrative, microlobulated), microc alcifications, taller than wide shape, rim calcifications with small extrusive soft tissue component, evidence of ETE (extra-thyroidal extension); estimated risk of malignancy >70-90 percent; recommend FNA at > 1 cm. NOTES: * Although a sonographically suspicious subcentimeter thyroid nodule without evidence of extrathyroi raven extension or sonographically suspicious lymph nodes may be observed with close sonographic follow -up rather than pursuing immediate FNA, patient age and preference may modify decision-making. A > 50% interval increase in nodule volume and/or development of new suspicious sonographic features are felt to be a valid reasons for potential re-aspiration of a nodule previously shown to have benig n FNA cytology. Report Dictated By: Nguyễn Baron at 11/24/2017 12:42 PM Report E-Melissa By: Nguyễn Baron at 11/24/2017 12:58 PM [id number]
== END ==
LOC: US 00:42
PROVIDERS: ATTEND Otolaryngology
DX: E04.9 Nontoxic goiter, unspecified (principal)
CPT/HCPCS: 76536

== ENCOUNTER 2017-12-22 00:31 | Observation (INO) | payer MEDICARE, MEDICAID ==
[~2017-12-22] VITALS: Ht 165.1 cm; Wt 89.4 kg
[2017-12-22] VITALS (16 sets, daily range): BP systolic 103–130; BP diastolic 59–88
[~2017-12-22 00:31] MED LIST changes: +MIDAZOLAM 2 MG/2 ML VIAL IVP ONE
[2017-12-22] MEDS ORDERED: ceFAZolin(*) 2GM/D5W 50ML 50 ML IVPB ONE (07:12)
[2017-12-22 08:13] LABS: PLATELET COUNT, AUTOMATED 257 K/uL (150-450)
[2017-12-22] MEDS ORDERED: SCOPOLAMINE 1.5 MG PATCH TD ONE (08:25)
[2017-12-22] MEDS ORDERED: HEPARIN FLSH (PORT) 500 UN/5ML IVP ONE (09:00)
--- NOTE | 2017-12-22 09:04 | EKG ---
FACILITY: [facility] PATIENT NAME: MARY MCCLAIN : [id number] MR: [id number] V: [id number] EXAM DATE: ORDERING PHYSICIAN: SHAILESH MOY TECHNOLOGIST: CHRISTIANO Cisneros Reason : PRE-OP Blood Pressure : / mmHG Vent. Rate : 070 BPM Atrial Rate : 070 BPM P-R Int : 172 ms QRS Dur : 082 ms QT Int : 394 ms P-R-T Axes : 053 013 055 degrees QTc Int : 425 ms Normal sinus rhythm with sinus arrhythmia Poor R wave progression anteriorly T wave inversion similar to previous EKGs Abnormal ECG When compared with ECG of 25-NOV-2015 01:05, No significant change was found Confirmed by BIGG SOLER ([id number]) on 12/22/2017 7:36:34 PM Referred By: YURI Confirmed By:BIGG SOLER
[2017-12-22] MEDS ORDERED: LIDO/EPI 1% MDV 1:100,000 20ML INFIL ONE (09:48)
[2017-12-22] MEDS ORDERED: ROCURONIUM BROM 10 MG/ML 10 ML ONE (10:03)
[2017-12-22] MEDS ORDERED: DEXAMETHASONE SOD PHOS 10MG/ML ONE (10:03)
[2017-12-22] MEDS ORDERED: ONDANSETRON 4 MG/2 ML VIAL ONE (10:03)
[2017-12-22] MEDS ORDERED: LIDOCAINE MPF 1% 5 ML VIAL ONE (10:03)
[2017-12-22] MEDS ORDERED: PROPOFOL EMUL(*) 10MG/ML 20 ML 20 ML ONE (10:03)
[2017-12-22] MEDS ORDERED: fentaNYL CITR 100 MCG/2 ML AMP ONE ×3 (10:04→12:26)
[2017-12-22] MEDS ORDERED: MIDAZOLAM 2 MG/2 ML VIAL ONE (10:04)
[2017-12-22] MEDS ORDERED: SUGAMMADEX SOD 500 MG/5 ML SDV ONE (10:27)
[2017-12-22] MEDS ORDERED: PHENYLEPHRINE/NS/PF 0.4MG/10ML ONE (10:37)
[2017-12-22] MEDS ORDERED: ePHEDrine 25 MG/5 ML DISP.SYR IVP ONE (10:37)
[2017-12-22] MEDS ORDERED: PHENYLEPHRINE 10 MG/1 ML VIAL ONE (10:54)
[2017-12-22] MEDS ORDERED: NORMOSOL R SOLN(*) 1000 ML BAG 1,000 ML IV PRN (11:25)
[2017-12-22] MEDS ORDERED: MIDAZOLAM 2 MG/2 ML VIAL IVP ONE (11:25)
[2017-12-22] MEDS ORDERED: LIDOCAINE/SOD BICARB 8.4% SYR ID ONE (11:25)
[2017-12-22] MEDS ORDERED: ONDANSETRON 4 MG ODT TABDP SL PRN ×2 (11:55→12:00)
[2017-12-22] MEDS ORDERED: LR(*) 1000 ML BAG 1,000 ML IV PRN (11:55)
[2017-12-22] MEDS ORDERED: GLYCOPYRROLATE 1 MG TABLET PO PRN (12:00)
[2017-12-22] MEDS ORDERED: PROMETHAZINE HCL 25 MG TAB PO PRN (12:00)
--- NOTE | 2017-12-22 12:06 | Post Operative Note ---
Operative Note - ENT Operative Day Date: Dec 22, 2017 Physicians Surgeon: Braden Pony Ride Attendant: Wayne Anesthesia: GETA Diagnosis Pre-Op Diagnosis: hyperparathyroidism Post-Op Diagnosis: same Procedure Procedure(s): parathyroidecomy Specimen Removed:(Maybe N/A): left superior and inferior parathyroid glands Complications: none Fluids Estimated Blood Loss: 25 ml YASSINE WELCH JR, MD Dec 22, 2017 12:06
[2017-12-22] MEDS ORDERED: PROMETHAZINE 25 MG/ML 1 ML AMP ONE (12:30)
[2017-12-22] MEDS: CHOLESTYRAMINE 4 GM POWD PO SCH ×3 (13:00→21:00)
[2017-12-22] MEDS ORDERED: ACET-2146 PO (13:48)
[2017-12-22] MEDS ORDERED: LAMO150T36 PO (13:54)
[2017-12-22] MEDS: DIPHENOX/ATROPINE 2.5-0.025MG PO SCH ×2 (14:00→21:00)
[2017-12-22] MEDS: ceFAZolin(*) 1 GM VIAL 1 GM in NS(*) 0.9% 100 ML ADDVANT BAG 100 ML IVPB SCH (17:07)
[2017-12-22] MEDS: AMYLASE PO SCH ×2 (17:35→21:35)
[2017-12-22] MEDS: LIPASE PO SCH ×2 (17:35→21:35)
[2017-12-22] MEDS: PROTEASE PO SCH ×2 (17:35→21:35)
[2017-12-22] MEDS: APAP/HYDROCODONE 325/5 TAB PO PRN (17:42)
[2017-12-22] MEDS ORDERED: KETOROLAC 15 MG/ML VIAL IVP PRN (20:30)
[2017-12-22] MEDS ORDERED: lamoTRIgine 100 MG TAB PO SCH (21:00)
[2017-12-22] MEDS ORDERED: DICYCLOMINE HCL 10 MG CAP PO SCH (21:00)
[2017-12-22] MEDS ORDERED: LITHIUM CARBONATE 300 MG CAP PO SCH (21:00)
[2017-12-22] MEDS ORDERED: LOSARTAN POTASSIUM 50 MG TAB PO SCH (21:00)
[2017-12-22] MEDS ORDERED: clonazePAM 1 MG TAB PO SCH (21:00)
[2017-12-22] MEDS ORDERED: fluvoxaMINE MALEATE 50 MG TAB PO SCH (21:00)
[2017-12-22] MEDS ORDERED: PERPHENAZINE 2 MG TAB PO SCH (21:00)
[2017-12-22] MEDS ORDERED: MINOCYCLINE HCL 100 MG CAP PO SCH (21:00)
[2017-12-22] MEDS: CARVEDILOL 6.25 MG TAB PO SCH (21:36)
[2017-12-22] MEDS: PANTOPRAZOLE SOD 40 MG TABEC PO SCH (21:36)
[2017-12-22] MEDS: CALCIUM CARBONATE 500 MG CHEW CHEW SCH (21:36)
[2017-12-23] VITALS (7 sets, daily range): BP systolic 94–110; BP diastolic 54–73
[2017-12-23] MEDS: ceFAZolin(*) 1 GM VIAL 1 GM in NS(*) 0.9% 100 ML ADDVANT BAG 100 ML IVPB SCH ×2 (01:11→09:10)
[2017-12-23] MEDS: APAP/HYDROCODONE 325/5 TAB PO PRN ×2 (01:20→01:50)
[2017-12-23] MEDS ORDERED: LEVOTHYROXINE SOD 0.075 MG TAB PO SCH (06:00)
[2017-12-23] MEDS ORDERED: CALC200T16 CHEW (07:57)
[2017-12-23] MEDS ORDERED: CEFU500T10 PO (07:57)
--- NOTE | 2017-12-23 08:00 | Short(Outpt) Discharge Summary ---
Discharge Summary Reason for Hosp/Final Diag: (1) Hyperparathyroidism Status: Resolved Hospital Course & Plan: patient claudia reg diet. calcium normal. Departure Discharge to: Home Discharge Instructions Home Meds Active Scripts Ondansetron (ONDANSETRON ODT) 8 Mg Tab.rapdis, 1 TAB PO BID Y for NAUSEA/ VOMITING, #30 TAB 3 Refills Prov:VILMA ROWAN MD 11/10/17 Omeprazole (OMEPRAZOLE) 40 Mg Capsule., 1 CAP PO BID, #60 CAP 3 Refills Prov:VILMA ROWAN MD 07/29/17 Lipase/Protease/Amylase (CREON 36,000 UNITS CAPSULE) 1 Each Capsule., 1 CAP PO QID, #120 CAP 6 Refills Take 1 capsule before meals, 4 times every day Prov:VILMA ROWAN MD 06/06/17 Promethazine Hcl (PROMETHAZINE HCL) 25 Mg Tablet, 1 TAB PO Q8H Y for NAUSEA/ VOMITING, #30 TAB 3 Refills Prov:VILMA ROWAN MD 06/03/17 Reported Medications Lamotrigine (LAMOTRIGINE) 150 Mg Tablet, 150 MG PO BID 12/22/17 Acetaminophen 500 Mg Tab (ACETAMINOPHEN EXTRA STRENGTH) 500 Mg Tablet, 500 MG PO PRN Y for PAIN, TAB 12/22/17 Levothyroxine Sodium (LEVOTHYROXINE SODIUM) 75 Mcg Tablet, 75 MCG PO QDAY, TAB 12/12/17 Diphenoxylate Hcl/Atropine (LOMOTIL TABLET) 1 Each Tablet, 1 EACH PO PRN, TAB 12/12/17 Glycopyrrolate (GLYCOPYRROLATE) 1 Mg Tablet, 0.5 MG PO PRN 12/12/17 Dicyclomine Hcl (DICYCLOMINE HCL) 20 Mg Tablet, 2 TAB PO DAILY 10/30/17 Cholestyramine (With Sugar) (CHOLESTYRAMINE PACKET) 4 Gm Powd.pack, 1 PACK PO QDAY 10/30/17 [place] Carbonate (LITHIUM CARBONATE) 300 Mg Cap, 3 CAP PO HS, CAP 10/30/17 Minocycline Hcl (MINOCYCLINE HCL) 100 Mg Tablet, 1 TAB PO BID, CAPSULE 10/30/17 Clonazepam (CLONAZEPAM) 2 Mg Tab.rapdis, 1-3 TAB PO QHS, #6 TAB 10/30/17 Carvedilol (CARVEDILOL) 12.5 Mg Tablet, 12.5 MG PO BID, #10 TAB 09/17/17 Perphenazine (PERPHENAZINE) 8 Mg Tablet, 4 MG PO BID 03/30/17 Losartan Potassium (LOSARTAN POTASSIUM) 50 Mg Tablet, 1 TAB PO HS 03/30/17 Fluvoxamine Maleate (FLUVOXAMINE MALEATE) 50 Mg Tablet, 50 MG PO HS 07/20/15 Discontinued Reported Medications Acetaminophen (TYLENOL) 325 Mg Tablet, 500 MG PO PRN, TAB 12/12/17 Lamotrigine (LAMOTRIGINE) 300 Mg Tab.er.24, 1 TAB PO DAILY 10/30/17 Diet: Regular Activity: No Heavy Lifting, No Exertion YASSINE WELCH JR, MD Dec 23, 2017 08:00
[2017-12-23] MEDS: LIPASE PO SCH (08:22)
[2017-12-23] MEDS: PROTEASE PO SCH (08:22)
[2017-12-23] MEDS: AMYLASE PO SCH (08:22)
[2017-12-23] MEDS ORDERED: PATCH REMOVAL 1 EA TP ONE (08:25)
[2017-12-23] MEDS ORDERED: HYDR-385 PO (08:28)
[2017-12-23] MEDS ORDERED: LITHIUM CARBONATE 300 MG CAP PO SCH (09:00)
[2017-12-23] MEDS ORDERED: PERPHENAZINE 2 MG TAB PO SCH (09:00)
[2017-12-23] MEDS: CHOLESTYRAMINE 4 GM POWD PO SCH ×2 (09:00→09:08)
[2017-12-23] MEDS ORDERED: fluvoxaMINE MALEATE 50 MG TAB PO SCH (09:00)
[2017-12-23] MEDS ORDERED: LOSARTAN POTASSIUM 50 MG TAB PO SCH (09:00)
[2017-12-23] MEDS ORDERED: DICYCLOMINE HCL 10 MG CAP PO SCH (09:00)
[2017-12-23] MEDS ORDERED: MINOCYCLINE HCL 100 MG CAP PO SCH (09:00)
[2017-12-23] MEDS ORDERED: lamoTRIgine 100 MG TAB PO SCH (09:00)
[2017-12-23] MEDS: DIPHENOX/ATROPINE 2.5-0.025MG PO SCH (09:00)
[2017-12-23] MEDS: CALCIUM CARBONATE 500 MG CHEW CHEW SCH (09:08)
[2017-12-23] MEDS: PANTOPRAZOLE SOD 40 MG TABEC PO SCH (09:09)
[2017-12-23] MEDS: CARVEDILOL 6.25 MG TAB PO SCH (09:27)
--- NOTE | 2017-12-23 13:34 | OPERATIVE REPORT 1 ---
EVENT DATE: December 22, 2017 SURGEON: Nabil Feliciano MD ANESTHESIOLOGIST: Ehsan Azul MD ANESTHESIA: General endotracheal. SANDBLAST OR SHOTBLAST EQUIPMENT TENDER: Raj Black MD PROCEDURE PERFORMED Parathyroidectomy. PREOPERATIVE DIAGNOSIS Primary hyperparathyroidism. POSTOPERATIVE DIAGNOSIS Primary hyperparathyroidism. INDICATIONS Please refer to the preoperative note. PROCEDURE The patient was positively identified in the preoperative area. She was accompanied there by her . Risks were again explained, including but not limited to, bleeding, infection, injury to the recurrent laryngeal nerve, transient or permanent dysphonia, persistent hyperparathyroidism, hypoparathyroidism, and those associated with anesthesia. She acknowledged understanding of those risks. She was then brought back to the operative suite , laid supine on the operative table and anesthesia was administered. Once asleep, the patient was positioned then prepped and draped in usual sterile fashion. A favorable neck crease was identified overlying the thyroid gland. I marked a 4 cm incision. Approximately 1 mL of 1% lidocaine with epinephrine was infiltrated. The aforementioned incision was then made with a 15 blade. The underlying subcutaneous tissue was then dissected with Bovie electrocautery. The platysma muscle was identified and divided with Bovie electrocautery. Subplatysmal flaps were elevated superior to the level of the thyroid notch and inferiorly to the level of the sternal notch. The strap musculature was then divided and divided along the median [place]. I then carefully elevated the strap musculature off of the left thyroid lobe. The lobe was medialized, and I carefully dissected adjacent to the thyroid lobe. Initially we found a generous sized right inferior parathyroid gland. This was removed. I continued the exploration in the area of concern on the preoperative ultrasound. A much larger parathyroid gland consistent with an adenoma and consistent with the description on the preoperative ultrasound was identified. This was removed. The intraoperative PTH dropped from 191 to 34. The wound was then copiously irrigated with normal saline solution. A small piece of Fibrillar Surgicel was placed. The strap musculature and platysma were then reapproximated with interrupted Chromic stitch. The skin was closed in a multilayer fashion. The patient was then turned to anesthesia for emergence. ESTIMATED BLOOD LOSS 25 mL. COMPLICATIONS No complications. MTDD
[2017-12-25] MEDS ORDERED: OMEP40CA48 PO (16:58)
== END 2017-12-23 07:58 | disposition home or self-care (01) ==
LOC: OR 00:31 → MED 13:25
PROVIDERS: ADMIT Otolaryngology; ATTEND Otolaryngology
DX: E21.0 Primary hyperparathyroidism (principal); I10 Essential (primary) hypertension
CPT/HCPCS: 36415; 60500; 80178; 82310; 83970; 85025; 88305; 93005; A9270; G0378; J0690; J1100; J1642; J1885; J2001; J2250; J2370; J2405; J2550; J2704; J3010; J7050; Q0162; Q0169; Q0175; 82374; 82435; 82565; 82947; 84132; 84295; 84520; S0119

== ENCOUNTER → 2017-12-29 | Outpatient (CLI) | payer MEDICARE, MEDICAID ==
[~2017-12-29] MED LIST changes: +ACET-2146 PO; +CALC200T16 CHEW; +CEFU500T10 PO; +HYDR-385 PO; +LAMO150T36 PO; -MIDAZOLAM 2 MG/2 ML VIAL IVP ONE
== END ==
LOC: LAB 14:02
PROVIDERS: ATTEND Otolaryngology
DX: E21.3 Hyperparathyroidism, unspecified (principal); D35.1 Benign neoplasm of parathyroid gland
CPT/HCPCS: 36415; 82310

== ENCOUNTER 2018-01-07 08:00 | Outpatient (RCR) | payer MEDICARE, MEDICAID ==
[~2018-01-07 08:00] MED LIST changes: -SCOP1PAT16 TD
[2018-01-07] MEDS ORDERED: SCOP1PAT16 TD (16:53)
[2018-01-07] MEDS ORDERED: NS(*) 0.9% 500 ML BAG 500 ML IV PRN (17:25)
[2018-01-07] MEDS ORDERED: DEXTROSE 5%(*) 100 ML BAG 100 ML IVPB PRN (17:25)
[2018-01-07] MEDS ORDERED: ALTEPLASE RECOMB 2 MG VIAL IVP PRN (17:25)
[2018-01-07] MEDS ORDERED: HEPARIN FLSH (PORT) 500 UN/5ML IVP PRN (17:25)
[2018-01-07] MEDS ORDERED: WATER FOR INJ,STERILE 20 ML IVP PRN (17:25)
[2018-01-07] MEDS ORDERED: NS(*) 0.9% 100 ML BAG 100 ML IVPB PRN (17:25)
[2018-01-07] MEDS ORDERED: LIDOCAINE/SOD BICARB 8.4% SYR ID PRN (17:25)
[2018-01-19] MEDS ORDERED: LIPA1CAP8 PO (12:14)
[2018-01-26] MEDS ORDERED: GLYC1TAB13 PO (14:01)
[2018-01-26] MEDS ORDERED: CHOL4PAC15 PO (14:02)
[2018-01-28] MEDS ORDERED: CALC0.5C5 PO (17:22)
== END 2018-02-05 10:21 | disposition home or self-care (01) ==
LOC: SPU 08:00
PROVIDERS: ATTEND Radiology Diagnostic Radiology
DX: R79.89 Other specified abnormal findings of blood chemistry (principal); E03.9 Hypothyroidism, unspecified
CPT/HCPCS: 36591; J1642

== ENCOUNTER → 2018-01-07 | Outpatient (CLI) | payer MEDICARE, MEDICAID ==
[~2018-01-07] MED LIST changes: +FLUC100T35 PO; +SCOP1PAT16 TD
== END ==
LOC: LAB 15:12
PROVIDERS: ATTEND Otolaryngology
DX: E21.3 Hyperparathyroidism, unspecified (principal)
CPT/HCPCS: 36415; 82310

== ENCOUNTER → 2018-01-27 | Outpatient (CLI) | payer MEDICARE, MEDICAID ==
[~2018-01-27] MED LIST changes: +CALC0.5C5 PO; +SCOP1PAT16 TD
== END ==
LOC: LAB 16:23
PROVIDERS: ATTEND Surgery
DX: D23.39 Other benign neoplasm of skin of other parts of face (principal); D23.4 Other benign neoplasm of skin of scalp and neck
CPT/HCPCS: 88305

== ENCOUNTER → 2018-01-28 | Outpatient (CLI) | payer MEDICARE, MEDICAID ==
[2018-01-28 11:35] LABS: PLATELET COUNT, AUTOMATED 270 K/uL (150-450)
== END ==
LOC: SPU 10:41
PROVIDERS: ATTEND Physician Assistant
DX: R42 Dizziness and giddiness (principal)
CPT/HCPCS: 36591; 82040; 82247; 82310; 82374; 82435; 82565; 82947; 84075; 84132; 84155; 84295; 84450; 84460; 84520; 85025

== ENCOUNTER → 2018-01-28 | Outpatient (CLI) | payer MEDICARE, MEDICAID | LOC: SPU 10:47 | PROVIDERS: ATTEND Surgery | DX: E21.3 Hyperparathyroidism, unspecified (principal); D35.1 Benign neoplasm of parathyroid gland; R10.9 Unspecified abdominal pain; R11.2 Nausea with vomiting, unspecified; E87.6 Hypokalemia; E31.21 Multiple endocrine neoplasia [MEN] type I; E03.9 Hypothyroidism, unspecified | CPT/HCPCS: 82306; 82330; 83970; 84443 ==

== ENCOUNTER → 2018-03-03 | Outpatient (CLI) | payer MEDICARE, MEDICAID | LOC: LAB 10:15 | PROVIDERS: ATTEND Surgery | DX: D22.5 Melanocytic nevi of trunk (principal) | CPT/HCPCS: 88305 ==

== ENCOUNTER → 2018-03-18 | Outpatient (CLI) | payer MEDICARE, MEDICAID ==
[~2018-03-18] MED LIST changes: +ALTEPLASE RECOMB 2 MG VIAL IVP PRN; -CLON-308 PO; +CLON-335 PO; +DEXTROSE 5%(*) 100 ML BAG 100 ML IVPB PRN; +HEPARIN FLSH (PORT) 500 UN/5ML IVP PRN; +LIDOCAINE/SOD BICARB 8.4% SYR ID PRN; +NS(*) 0.9% 100 ML BAG 100 ML IVPB PRN; +NS(*) 0.9% 500 ML BAG 500 ML IV PRN; +WATER FOR INJ,STERILE 20 ML IVP PRN
[2018-03-18 12:57] VITALS: BP 114/81
== END ==
LOC: SPU 11:37
PROVIDERS: ATTEND Surgery
DX: K59.1 Functional diarrhea (principal); M62.40 Contracture of muscle, unspecified site; R11.2 Nausea with vomiting, unspecified
CPT/HCPCS: 36591; 83735; 96365; 96375; J1642; J2997; J7040; 82310; 82374; 82435; 82565; 82947; 84132; 84295; 84520

== ENCOUNTER → 2018-04-15 | Outpatient (CLI) | payer MEDICARE, MEDICAID ==
[~2018-04-15] MED LIST changes: -ALTEPLASE RECOMB 2 MG VIAL IVP PRN; -DEXTROSE 5%(*) 100 ML BAG 100 ML IVPB PRN; -HEPARIN FLSH (PORT) 500 UN/5ML IVP PRN; -LIDOCAINE/SOD BICARB 8.4% SYR ID PRN; -NS(*) 0.9% 100 ML BAG 100 ML IVPB PRN; -NS(*) 0.9% 500 ML BAG 500 ML IV PRN; -WATER FOR INJ,STERILE 20 ML IVP PRN
== END ==
LOC: SPU 10:33
PROVIDERS: ATTEND Physician Assistant
DX: E03.9 Hypothyroidism, unspecified (principal)
CPT/HCPCS: 84443

== ENCOUNTER 2018-06-09 09:49 | Outpatient (RCR) | payer MEDICAID, MEDICARE ==
[2018-04-15] MEDS: LIDOCAINE/SOD BICARB 8.4% SYR ID PRN ×2 (10:40→12:24)
[2018-04-15] MEDS: HEPARIN FLSH (PORT) 500 UN/5ML IVP PRN ×2 (10:40→12:24)
[2018-04-15 10:41] VITALS: BP 125/83
[2018-05-12 09:41] VITALS: BP 123/87
[2018-05-12] MEDS: LIDOCAINE/SOD BICARB 8.4% SYR ID PRN (10:12)
[2018-05-12] MEDS: HEPARIN FLSH (PORT) 500 UN/5ML IVP PRN (10:12)
[2018-05-12 10:14] LABS: PLATELET COUNT, AUTOMATED 289 K/uL (150-450)
[~2018-06-09 09:49] MED LIST changes: -HEPARIN FLSH (PORT) 500 UN/5ML IVP PRN; -LIDOCAINE/SOD BICARB 8.4% SYR ID PRN
[2018-06-09 10:12] VITALS: BP 137/99
[2018-06-09] MEDS ORDERED: DICY20TA70 PO (12:14)
[2018-06-23] MEDS ORDERED: PYRI25TA18 PO (14:19)
[2018-06-23] MEDS ORDERED: PRAM0.1225 PO (14:21)
== END 2018-07-13 ==
LOC: SPU 09:49
PROVIDERS: ATTEND Family Medicine
DX: R79.89 Other specified abnormal findings of blood chemistry (principal); E03.9 Hypothyroidism, unspecified
CPT/HCPCS: 36591; 82330; 83735; 83970; 84100; 84443; 85025; 96374; J1642; J2997; 82310; 82374; 82435; 82565; 82947; 84132; 84295; 84520

== ENCOUNTER → 2018-06-09 | Outpatient (CLI) | payer MEDICARE, MEDICAID ==
[~2018-06-09] MED LIST changes: +ALTEPLASE RECOMB 2 MG VIAL IVP PRN; +Clindamycin TOP; +DEXTROSE 5%(*) 100 ML BAG 100 ML IVPB PRN; +HEPARIN FLSH (PORT) 500 UN/5ML IVP PRN; +LIDOCAINE/SOD BICARB 8.4% SYR ID PRN; -LOSA25TA50 PO; +LOSA25TA52 PO; -LOSA50TA72 PO; +LOSA50TA74 PO; +MECL25TA27 PO; +MECL25TA9 PO; +NS(*) 0.9% 100 ML BAG 100 ML IVPB PRN; +NS(*) 0.9% 500 ML BAG 500 ML IV PRN; +WATER FOR INJ,STERILE 20 ML IVP PRN
== END ==
LOC: SPU 10:13
PROVIDERS: ATTEND Surgery
DX: Z45.2 Encounter for adjustment and management of vascular access device (principal)
CPT/HCPCS: 36591; J1642

== ENCOUNTER → 2018-07-07 | Outpatient (CLI) | payer MEDICARE, MEDICAID ==
[~2018-07-07] MED LIST changes: +HEPARIN FLSH (PORT) 500 UN/5ML IVP PRN; +LIDOCAINE/SOD BICARB 8.4% SYR ID PRN; +PRAM0.1225 PO; +PYRI25TA18 PO
[2018-07-07 10:02] VITALS: BP 123/85
== END ==
LOC: SPU 07:42
PROVIDERS: ATTEND Surgery
DX: Z45.2 Encounter for adjustment and management of vascular access device (principal)
CPT/HCPCS: 96523; J1642

== ENCOUNTER 2018-07-08 00:32 | Day surgery (SDC) | payer MEDICARE, MEDICAID ==
[~2018-07-08] VITALS: Ht 165.1 cm; Wt 84.8 kg
[~2018-07-08 00:32] MED LIST changes: -ALTEPLASE RECOMB 2 MG VIAL IVP PRN; -DEXTROSE 5%(*) 100 ML BAG 100 ML IVPB PRN; -HEPARIN FLSH (PORT) 500 UN/5ML IVP PRN; -LIDOCAINE/SOD BICARB 8.4% SYR ID PRN; -NS(*) 0.9% 100 ML BAG 100 ML IVPB PRN; -NS(*) 0.9% 500 ML BAG 500 ML IV PRN; -WATER FOR INJ,STERILE 20 ML IVP PRN
[2018-07-08 06:21] VITALS: BP 118/85
[2018-07-08] MEDS ORDERED: LIDOCAINE/SOD BICARB 8.4% SYR ID ONE (06:30)
[2018-07-08] MEDS ORDERED: NORMOSOL R SOLN(*) 1000 ML BAG 1,000 ML IV PRN (06:30)
[2018-07-08] MEDS ORDERED: PROPOFOL EMUL(*) 10MG/ML 20 ML 20 ML ONE ×2 (06:59→07:29)
[2018-07-08 07:42] VITALS: BP 91/61
[2018-07-08 07:46] VITALS: BP 92/59
--- NOTE | 2018-07-08 07:52 | Short(Outpt) Discharge Summary ---
Discharge Summary Reason for Hosp/Final Diag: (1) GERD (gastroesophageal reflux disease) Status: Chronic Hospital Course & Plan: EGD with biopsies completed without problems. (2) Abdominal pain Status: Chronic (3) Nausea & vomiting Status: Chronic (4) Delayed gastric emptying Status: Chronic Departure Discharge to: Home, Self Care Discharge Instructions Home Meds Active Scripts Dicyclomine Hcl (DICYCLOMINE HCL) 20 Mg Tablet, 1 TAB PO BID, #60 TAB 6 Refills Prov:VILMA ROWAN MD 06/09/18 Promethazine Hcl (PROMETHAZINE HCL) 25 Mg Tablet, 1 TAB PO Q8H PRN for NAUSEA/VOMITING, #30 TAB 3 Refills Prov:VILMA ROWAN MD 05/25/18 Meclizine Hcl (MECLIZINE HCL) 25 Mg Tablet, 1 TAB PO BID, #60 TAB 3 Refills Prov:VILMA ROWAN MD 05/04/18 Calcitriol (CALCITRIOL) 0.5 Mcg Capsule, 2 CAP PO QDAY, #60 CAPSULE 3 Refills Prov:VILMA ROWAN MD 04/28/18 Omeprazole (OMEPRAZOLE) 40 Mg Capsule., 1 CAP PO BID, #60 CAP 3 Refills Prov:VILMA ROWAN MD 04/28/18 Diphenoxylate Hcl/Atropine (LOMOTIL TABLET) 1 Each Tablet, 1-2 TAB PO QID PRN fo r DIARRHEA, #60 TAB 3 Refills Prov:VILMA ROWAN MD 04/06/18 Ondansetron (ONDANSETRON ODT) 8 Mg Tab.rapdis, 1 TAB PO BID PRN for NAUSEA/VOMITING, #30 TAB 3 Refills Prov:VILMA ROWAN MD 03/28/18 Cholestyramine (With Sugar) (CHOLESTYRAMINE PACKET) 4 Gm Powd.pack, 1 PACK PO QDAY, #90 PACK 6 Refills Prov:VILMA ROWAN MD 01/26/18 Glycopyrrolate (GLYCOPYRROLATE) 1 Mg Tablet, 0.5 TAB PO QDAY, #30 TAB 3 Refills Prov:VILMA ROWAN MD 01/26/18 Lipase/Protease/Amylase (CREON DR 36,000 UNITS CAPSULE) 1 Each Capsule., 1 CAP PO QID, #120 CAP 6 Refills Take 1 capsule before meals, 4 times every day Prov:VILMA ROWAN MD 01/19/18 Reported Medications Pramipexole Di-Hcl (MIRAPEX) 0.125 Mg Tablet, 3 TAB PO QHS 06/23/18 Pyridoxine Hcl (VITAMIN B-6) 25 Mg Tablet, 25 MG PO DAILY 06/23/18 [Clindamycin] No Conflict Check, 1 [place] QDAY 06/02/18 Lamotrigine (LAMOTRIGINE) 150 Mg Tablet, 150 MG PO BID 12/22/17 Acetaminophen 500 Mg Tab (ACETAMINOPHEN EXTRA STRENGTH) 500 Mg Tablet, 500 MG PO PRN PRN for PAIN, TAB 12/22/17 Levothyroxine Sodium (LEVOTHYROXINE SODIUM) 75 Mcg Tablet, 75 MCG PO QDAY, TAB 12/12/17 [place] Carbonate (LITHIUM CARBONATE) 300 Mg Cap, 3 CAP PO HS, CAP 10/30/17 Minocycline Hcl (MINOCYCLINE HCL) 100 Mg Tablet, 1 TAB PO BID, CAPSULE 10/30/17 Clonazepam (CLONAZEPAM) 2 Mg Tab.rapdis, 1-3 TAB PO QHS, #6 TAB 10/30/17 Carvedilol (CARVEDILOL) 12.5 Mg Tablet, 12.5 MG PO BID, #10 TAB 09/17/17 Perphenazine (PERPHENAZINE) 8 Mg Tablet, 4 MG PO BID 03/30/17 Losartan Potassium (LOSARTAN POTASSIUM) 50 Mg Tablet, 1 TAB PO HS 03/30/17 Fluvoxamine Maleate (FLUVOXAMINE MALEATE) 50 Mg Tablet, 50 MG PO HS 07/20/15 Diet: Regular Activity: As Tolerated Special Instructions: Your upper endoscopy was completed without any problems. I didn't find any ulcers, polyps, masses, cancers, etc. You did have some retained food in your stomach which is consistent with delayed gastric emptying. I did perform some biopsies and my office will call you in the next couple of days to schedule a follow up appointment in the next few weeks to discuss these results with you. Problem Qualifiers (1) GERD (gastroesophageal reflux disease): Esophagitis presence: without esophagitis Qualified Codes: K21.9 - Gastro- esophageal reflux disease without esophagitis (2) Abdominal pain: Abdominal location: generalized Qualified Codes: R10.84 - Generalized abdominal pain (3) Nausea & vomiting: Vomiting type: unspecified Vomiting Intractability: non-intractable Ralph lified Codes: R11.2 - Nausea with vomiting, unspecified VILMA ROWAN MD Jul 08, 2018 07:52
[2018-07-08 08:02] VITALS: BP 92/71
[2018-07-08 08:04] VITALS: BP 96/75
[2018-07-08] MEDS ORDERED: HEPARIN FLSH (PORT) 500 UN/5ML ONE (08:04)
== END 2018-07-08 08:25 | disposition home or self-care (01) ==
LOC: OR 00:32
PROVIDERS: ATTEND Surgery
DX: K31.89 Other diseases of stomach and duodenum (principal); T18.128A Food in esophagus causing other injury, initial encounter
CPT/HCPCS: 43239; 87077; 88305; J1642; J2704

== ENCOUNTER → 2018-08-04 | Outpatient (CLI) | payer MEDICAID, MEDICARE ==
[~2018-08-04] MED LIST changes: +ALTEPLASE RECOMB 2 MG VIAL IVP PRN; +DEXTROSE 5%(*) 100 ML BAG 100 ML IVPB PRN; +HEPARIN FLSH (PORT) 500 UN/5ML IVP PRN; +LIDOCAINE/SOD BICARB 8.4% SYR ID PRN; +NS(*) 0.9% 100 ML BAG 100 ML IVPB PRN; +NS(*) 0.9% 500 ML BAG 500 ML IV PRN; +WATER FOR INJ,STERILE 20 ML IVP PRN
[2018-08-04 10:00] VITALS: BP 124/90
== END ==
LOC: SPU 07:41
PROVIDERS: ATTEND Surgery
DX: Z45.2 Encounter for adjustment and management of vascular access device (principal)
CPT/HCPCS: 96523; J1642

== ENCOUNTER 2018-09-15 23:03 | Emergency (ER) | payer MEDICARE, MEDICAID ==
[~2018-09-15 23:03] MED LIST changes: -ALTEPLASE RECOMB 2 MG VIAL IVP PRN; -CIPR-344 PO; -DEXTROSE 5%(*) 100 ML BAG 100 ML IVPB PRN; -HEPARIN FLSH (PORT) 500 UN/5ML IVP PRN; -LIDOCAINE/SOD BICARB 8.4% SYR ID PRN; -METR-1 PO; -NS(*) 0.9% 100 ML BAG 100 ML IVPB PRN; -NS(*) 0.9% 500 ML BAG 500 ML IV PRN; -WATER FOR INJ,STERILE 20 ML IVP PRN
--- NOTE | 2018-09-15 23:31 | ER Report ---
History and Physical Time Seen By MD: 23:08 HPI/ROS CHIEF COMPLAINT: Right-sided abdominal pain HISTORY OF PRESENT ILLNESS: 38 year-old female with a long history of chronic diarrhea and vomiting for several months. She's been undergoing evaluation by her doctors. She underwent a CAT scan earlier today which showed extensive colitis of the ascending colon. She was sent in by her primary care. Family practice doctor for further evaluation. Patient notes right upper quadrant abdominal pain. She was told by her primary care doctor that he thought she had constipation that's why he did the CAT scan. Patient denies family history of i nflammatory bowel disease or ulcerative colitis. Patient denies recent antibiotic use. She states she takes Imodium and Phenergan daily to control her bowels and prevent vomiting. She was post to have a gastric emptying study today but she was too sick to undergo the tests. Patient reports she had EGD in the end of June, which showed retained food in the stomach and wanted him. There were gastric biopsies done, which were unremarkable. Patient states she's also had 2 colonoscopies in the last 2 years that were unremarkable. REVIEW OF SYSTEMS: Respiratory: No cough, no dyspnea. Cardiovascular: No chest pain, no palpitations. Gastrointestinal: As above Musculoskeletal: No back pain. Allergies: Coded Allergies: desvenlafaxine (Verified Allergy, Intermediate, EXTREMELY DROWSY, 06/23/18) risperidone (Verified Allergy, Intermediate, EXTREMELY DROWSY, 06/23/18) aripiprazole (Verified Allergy, Unknown, FACIAL AND NECK SWELLING, 02/04/16) asenapine (Verified Allergy, Unknown, NUMB TONGUE, 02/04/16) gabapentin (Verified Allergy, Unknown, MANIC, 02/04/16) hydralazine (Verified Allergy, Unknown, 02/04/16) paliperidone (Verified Allergy, Unknown, SLEEPS TOO MUCH, 02/04/16) quetiapine (Verified Allergy, Unknown, EXCESSIVE EATING, 02/04/16) sertraline (Verified Allergy, Unknown, 02/04/16) ziprasidone (Verified Allergy, Unknown, EXCESSIVE SLEEPING, 02/04/16) vortioxetine (Unverified Adverse Reaction, Intermediate, 03/30/17) Rash scopolamine (Verified Adverse Reaction, Unknown, blister, 04/29/18) Home Meds Active Scripts Metronidazole (FLAGYL) 500 Mg Tablet, 500 MG PO BID for infection, #14 TAB Prov:DEBBY PINZON DO 09/16/18 Ciprofloxacin Hcl 500 Mg Tab (CIPRO 500 MG TAB) 500 Mg Tablet, 500 MG PO BID for infection, #14 Prov:DEBBY PINZON DO 09/16/18 Calcitriol (CALCITRIOL) 0.5 Mcg Capsule, 2 CAP PO QDAY, #60 CAPSULE 3 Refills Prov:VILMA ROWAN MD 09/14/18 Omeprazole (OMEPRAZOLE) 40 Mg Capsule.dr, 1 CAP PO BID, #60 CAP 3 Refills Prov:VILMA ROWAN MD 08/28/18 Ranitidine Hcl (RANITIDINE HCL) 150 Mg Capsule, 1 CAP PO BID, #60 CAPSULE 6 Refills Prov:VILMA ROWAN MD 08/19/18 Lipase/Protease/Amylase (CREON DR 36,000 UNITS CAPSULE) 1 Each Capsule.dr, 1 CAP PO QID, #120 CAP 6 Refills Take 1 capsule before meals, 4 times every day Prov:VILMA ROWAN MD 08/14/18 Promethazine Hcl (PROMETHAZINE HCL) 25 Mg Tablet, 1 TAB PO Q8H PRN for NAUSEA/VOMITING, #30 TAB 3 Refills Prov:VILMA ROWAN MD 07/20/18 Dicyclomine Hcl (DICYCLOMINE HCL) 20 Mg Tablet, 1 TAB PO BID, #60 TAB 6 Refills Prov:VILMA ROWAN MD 06/09/18 Meclizine Hcl (MECLIZINE HCL) 25 Mg Tablet, 1 TAB PO BID, #60 TAB 3 Refills Prov:VILMA ROWAN MD 05/04/18 Diphenoxylate Hcl/Atropine (LOMOTIL TABLET) 1 Each Tablet, 1-2 TAB PO QID PRN for DIARRHEA, #60 TAB 3 Refills Prov:VILMA ROWAN MD 04/06/18 Ondansetron (ONDANSETRON ODT) 8 Mg Tab.rapdis, 1 TAB PO BID PRN for NAUSEA/VOMITING, #30 TAB 3 Refills Prov:VILMA ROWAN MD 03/28/18 Cholestyramine (With Sugar) (CHOLESTYRAMINE PACKET) 4 Gm Powd.pack, 1 PACK PO QDAY, #90 PACK 6 Refills Prov:VILMA ROWAN MD 01/26/18 Glycopyrrolate (GLYCOPYRROLATE) 1 Mg Tablet, 0.5 TAB PO QDAY, #30 TAB 3 Refills Prov:VILMA ROWAN MD 01/26/18 Reported Medications Pramipexole Di-Hcl (MIRAPEX) 0.125 Mg Tablet, 3 TAB PO QHS 06/23/18 Pyridoxine Hcl (VITAMIN B-6) 25 Mg Tablet, 25 MG PO DAILY 06/23/18 [Clindamycin] No Conflict Check, 1 SCOTT TOP QDAY 06/02/18 Lamotrigine (LAMOTRIGINE) 150 Mg Tablet, 150 MG PO BID 12/22/17 Acetaminophen 500 Mg Tab (ACETAMINOPHEN EXTRA STRENGTH) 500 Mg Tablet, 500 MG PO PRN PRN for PAIN, TAB 12/22/17 Levothyroxine Sodium (LEVOTHYROXINE SODIUM) 75 Mcg Tablet, 75 MCG PO QDAY, TAB 12/12/17 [facility] Carbonate (LITHIUM CARBONATE) 300 Mg Cap, 3 CAP PO HS, CAP 10/30/17 Minocycline Hcl (MINOCYCLINE HCL) 100 Mg Tablet, 1 TAB PO BID, CAPSULE 10/30/17 Clonazepam (CLONAZEPAM) 2 Mg Tab.rapdis, 1-3 TAB PO QHS, #6 TAB 10/30/17 Carvedilol (CARVEDILOL) 12.5 Mg Tablet, 12.5 MG PO BID, #10 TAB 09/17/17 Perphenazine (PERPHENAZINE) 8 Mg Tablet, 4 MG PO BID 03/30/17 Losartan Potassium (LOSARTAN POTASSIUM) 50 Mg Tablet, 1 TAB PO HS 03/30/17 Fluvoxamine Maleate (FLUVOXAMINE MALEATE) 50 Mg Tablet, 50 MG PO HS 07/20/15 Past Medical/Surgical History Past, Family, & Social History Past Medical History Cardiovascular: Reports hx of: hypertension Respiratory: Reports hx of: COPD (RARELY USE CPAP) sleep apnea (CPAP) Gastrointestinal: Reports hx of: GERD Genitourinary: Reports hx of: polycystic kidney disease Psychiatric: Reports hx of: bipolar disorder PTSD Endocrine: Reports hx of: hypothyroidism Past Surgical History HEENT: Reports hx of: other nasal surgery (Rhinoplasty 2000) Gastrointestinal: Reports hx of: appendectomy (12/2013) cholecystectomy (07/2014) Gynecologic: Reports hx of: hysterectomy (06/2010) tubal ligation (BEFORE HYSTERECTOMY) Breast: Reports hx of: other breast surgery (Breast Augmentation AND REMOVAL OF IMPLANTS 2011) Reviewed Nurses Notes: Yes Old Medical Records Reviewed: Yes Hx Smoking: No (OCCASIONAL SMOKING ) Smoking Status: Former Smoker Exposure to Second Hand Smoke?: Yes ( IS SMOKER ) Hx Substance Use Disorder: No Hx Alcohol Use: Yes Constitutional Vital Sign - Last 24 Hours 09/15/18 09/15/18 09/15/18 09/15/18 23:03 23:08 23:08 23:18 Temp 98.9 Pulse ??? 97 100 Resp 20 B/P (MAP) 154/110 154/110 (125) Pulse Ox 100 97 O2 Delivery Room Air 09/15/18 09/15/18 09/15/18 09/16/18 23:30 23:33 23:48 00:00 Pulse 90 ??? B/P (MAP) 125/91 (102) 134/94 (107) Pulse Ox 93 09/16/18 09/16/18 09/16/18 09/16/18 00:03 00:08 00:13 00:23 Pulse 88 ??? 87 94 Pulse Ox 94 98 98 98 09/16/18 09/16/18 09/16/18 09/16/18 00:28 00:30 00:33 00:38 Pulse 89 ? B/P (MAP) 124/86 (99) Pulse Ox 99 09/16/18 09/16/18 09/16/18 09/16/18 00:43 00:48 00:53 00:58 Pulse 82 83 83 83 Pulse Ox 94 94 94 93 09/16/18 09/16/18 09/16/18 09/16/18 01:00 01:03 01:08 01:13 Pulse 81 79 79 B/P (MAP) 125/82 (96) Pulse Ox 93 93 93 09/16/18 09/16/18 09/16/18 09/16/18 01:18 01:23 01:28 01:30 Pulse 77 79 82 B/P (MAP) 135/94 (108) Pulse Ox 92 98 96 09/16/18 09/16/18 09/16/18 09/16/18 01:43 01:48 01:53 01:58 Pulse ??? 78 82 81 Pulse Ox 95 96 98 1/05/2709/16/18 09/16/18 02:03 02:18 02:24 Pulse 82 77 ??? Pulse Ox 96 91 91 Physical Exam General Appearance: The patient is alert, has no immediate need for airway protection and no current signs of toxicity. Skin warm, dry, pink, mild distress Eyes: Pupils equal and round no injection. Respiratory: Chest is non tender, lungs are clear to auscultation. Cardiac: regular rate and rhythm Gastrointestinal: Abdomen is soft, mild right upper quadrant tenderness, no masses, bowel sounds normal. Musculoskeletal: Neck: Neck is supple and non tender. No lymphadenopathy Extremities have full range of motion and are non tender. Skin: No rashes or lesions. DIFFERENTIAL DIAGNOSIS: After history and physical exam differential diagnosis was considered for abdominal pain including but not limited to appendicitis, cholecystitis, gastritis and urinary tract infection. Medical Decision Making Data Points Result Diagram: 09/16/18 0016 09/16/18 0016 Laboratory Hematology Test 09/16/18 00:16 09/16/18 00:40 Red Blood Count 4.13 M/uL (4.17-5.56) Mean Corpuscular Volume 91.0 fL (80.0-96.0) Mean Corpuscular Hemoglobin 30.6 pg (26.0-33.0) Mean Corpuscular Hemoglobin Concent 33.6 g/dL (32.0-36.0) Red Cell Distribution Width 14.1 % (11.5-14.5) Mean Platelet Volume 7.4 fL (7.2-11.1) Neutrophils (%) (Auto) 64.5 % (39.4-72.5) Lymphocytes (%) (Auto) 24.7 % (17.6-49.6) Monocytes (%) (Auto) 7.1 % (4.1-12.4) Eosinophils (%) (Auto) 3.3 % (0.4-6.7) Basophils (%) (Auto) 0.4 % (0.3-1.4) Nucleated RBC Relative Count (auto) 0.0 /100WBC Neutrophils # (Auto) 6.1 K/uL (2.0-7.4) Lymphocytes # (Auto) 2.3 K/uL (1.3-3.6) Monocytes # (Auto) 0.7 K/uL (0.3-1.0) Eosinophils # (Auto) 0.3 K/uL (0.0-0.5) Basophils # (Auto) 0.0 K/uL (0.0-0.1) Nucleated RBC Absolute Count (auto) 0.00 K/uL Erythrocyte Sedimentation Rate 13 mm/HOUR (0-20) Sodium Level 137 mmol/L (137-145) Potassium Level 4.0 mmol/L (3.5-5.0) Chloride Level 108 mmol/L (98-107) Carbon Dioxide Level 19 mmol/L (22-31) Blood Urea Nitrogen 15 mg/dl (7-18) Creatinine 1.20 mg/dl (0.52-1.04) Glomerular Filtration Rate Calc 50.8 Random Glucose 101 mg/dl (75-110) Lactate 1.1 mmol/L (0.7-2.1) Calcium Level 9.5 mg/dl (8.4-10.2) Total Bilirubin 0.2 mg/dl (0.2-1.3) Aspartate Amino Transf (AST/SGOT) 22 U/L (0-35) Alanine Aminotransferase (ALT/SGPT) 37 U/L (0-56) Alkaline Phosphatase 72 U/L (0-126) C-Reactive Protein 2.0 mg/dl (<1.0) Total Protein 6.1 g/dl (6.3-8.2) Albumin 3.4 g/dl (3.5-5.0) Amylase Level 250 U/L (0-110) Lipase 1274 U/L (23-300) Urine Color Straw Urine Clarity Clear Urine pH 6.0 pH (4.8-9.5) Urine Specific [place] 1.009 Urine Protein Negative mg/dL (NEGATIVE) Urine Glucose (UA) Negative mg/dL (NEGATIVE) Urine Ketones Negative mg/dL (NEGATIVE) Urine Blood Negative (NEGATIVE) Urine Nitrite Negative (NEGATIVE) Urine Bilirubin Negative (NEGATIVE) Urine Urobilinogen Negative mg/dL (0.2-1.9) Urine Leukocyte Esterase Negative (NEGATIVE) Urine RBC None /HPF (0-2/HPF) Urine WBC 1 /HPF (0-5/HPF) Urine Squamous Epithelial Cells Many /LPF (</=FEW) Urine Bacteria Few /HPF (NONE-FEW) Urine Mucus None /HPF (NONE-FEW) Chemistry Test 1/9/19 00:16 09/16/18 00:40 White Blood Count 9.5 k/uL (4.5-11.0) Red Blood Count 4.13 M/uL (4.17-5.56) Hemoglobin 12.6 g/dL (12.0-16.0) Hematocrit 37.6 % (34.0-47.0) Mean Corpuscular Volume 91.0 fL (80.0-96.0) Mean Corpuscular Hemoglobin 30.6 pg (26.0-33.0) Mean Corpuscular Hemoglobin Concent 33.6 g/dL (32.0-36.0) Red Cell Distribution Width 14.1 % (11.5-14.5) Platelet Count 285 K/uL (150-450) Mean Platelet Volume 7.4 fL (7.2-11.1) Neutrophils (%) (Auto) 64.5 % (39.4-72.5) Lymphocytes (%) (Auto) 24.7 % (17.6-49.6) Monocytes (%) (Auto) 7.1 % (4.1-12.4) Eosinophils (%) (Auto) 3.3 % (0.4-6.7) Basophils (%) (Auto) 0.4 % (0.3-1.4) Nucleated RBC Relative Count (auto) 0.0 /100WBC Neutrophils # (Auto) 6.1 K/uL (2.0-7.4) Lymphocytes # (Auto) 2.3 K/uL (1.3-3.6) Monocytes # (Auto) 0.7 K/uL (0.3-1.0) Eosinophils # (Auto) 0.3 K/uL (0.0-0.5) Basophils # (Auto) 0.0 K/uL (0.0-0.1) Nucleated RBC Absolute Count (auto) 0.00 K/uL Erythrocyte Sedimentation Rate 13 mm/HOUR (0-20) Glomerular Filtration Rate Calc 50.8 Lactate 1.1 mmol/L (0.7-2.1) Calcium Level 9.5 mg/dl (8.4-10.2) Total Bilirubin 0.2 mg/dl (0.2-1.3) Aspartate Amino Transf (AST/SGOT) 22 U/L (0-35) Alanine Aminotransferase (ALT/SGPT) 37 U/L (0-56) Alkaline Phosphatase 72 U/L (0-126) C-Reactive Protein 2.0 mg/dl (<1.0) Total Protein 6.1 g/dl (6.3-8.2) Albumin 3.4 g/dl (3.5-5.0) Amylase Level 250 U/L (0-110) Lipase 1274 U/L (23-300) Urine Color Straw Urine Clarity Clear Urine pH 6.0 pH (4.8-9.5) Urine Specific [place] 1.009 Urine Protein Negative mg/dL (NEGATIVE) Urine Glucose (UA) Negative mg/dL (NEGATIVE) Urine Ketones Negative mg/dL (NEGATIVE) Urine Blood Negative (NEGATIVE) Urine Nitrite Negative (NEGATIVE) Urine Bilirubin Negative (NEGATIVE) Urine Urobilinogen Negative mg/dL (0.2-1.9) Urine Leukocyte Esterase Negative (NEGATIVE) Urine RBC None /HPF (0-2/HPF) Urine WBC 1 /HPF (0-5/HPF) Urine Squamous Epithelial Cells Many /LPF (</=FEW) Urine Bacteria Few /HPF (NONE-FEW) Urine Mucus None /HPF (NONE-FEW) Urinalysis Test 09/16/18 00:40 Urine Color Straw Urine Clarity Clear Urine pH 6.0 pH (4.8-9.5) Urine Specific [place] 1.009 Urine Protein Negative mg/dL (NEGATIVE) Urine Glucose (UA) Negative mg/dL (NEGATIVE) Urine Ketones Negative mg/dL (NEGATIVE) Urine Blood Negative (NEGATIVE) Urine Nitrite Negative (NEGATIVE) Urine Bilirubin Negative (NEGATIVE) Urine Urobilinogen Negative mg/dL (0.2-1.9) Urine Leukocyte Esterase Negative (NEGATIVE) Urine RBC None /HPF (0-2/HPF) Urine WBC 1 /HPF (0-5/HPF) Urine Squamous Epithelial Cells Many /LPF (</=FEW) Urine Bacteria Few /HPF (NONE-FEW) Urine Mucus None /HPF (NONE-FEW) EKG/Imaging Imaging CT scan from earlier today reviewed CT abdomen and pelvis without and with IV contrast Indication: Right-sided abdominal pain. Comparison: 09/11/2017.. Technique: Axial CT images were obtained through the abdomen and pelvis prior to and during injection of nonionic iodinated intravenous contrast. Reformatted coronal and sagittal images were also obtained. One of the following dose optimization techniques was utilized in the pe rformance of this exam: Automated exposure control; adjustment of the mA and/or kV according to the patient's size; or use of an iterative reconstruction technique. Specific details can be referenced in the facility's radiology CT exam operational policy. Contrast: 75 ml of Isovue-370 IV contrast. Findings: Lower lung luu: Mild scarring, otherwise clear. Liver: Mildly diffusely hypodense suggestive mild fatty infiltration or chronic disease.. No focal lesions. The vasculature appears patent. Biliary: Status post cholecystectomy. The biliary system is unremarkable. Pancreas: No focal abnormality. Spleen: Normal appearance. Adrenal glands: Unremarkable. Kidneys / retroperitoneum: No kidney stones are seen in the collecting system of either kidney. The right kidney shows minimally prominent collecting system which is stable and likely chronic. There is no stones or dilatation of the ureters. Both kidneys show innumerable small varices size hypodense lesions, likely small cysts, some which are hyperdense. There is a couple punctate calcifications in the parenchyma of the left kidney. No discrete solid renal lesions. Bowel / peritoneum / mesenteries: The ascending colon does show wall thickening and mild inflammatory stranding without a focal abnormality. This is new from the previous examination. Colon shows no other focal abnormality. The appendix is not definitely visualized may been surgically removed. The small bowel shows no focal abnormality or obstruction. The stomach is unremarkable. No free air, free fluid, fluid collections or other areas of inflammation. Small umbilical hernia containing fat. Lymph node assessment: No pathologic adenopathy identified. Pelvic structures: Status post hysterectomy. Both ovaries appear normal. T he remaining pelvic structures visualized within normal limits. Vessels: No significant atherosclerotic calcifications seen throughout a nonaneurysmal abdominal aorta and branches. Musculoskeletal / Body wall: No acute or aggressive osseous abnormality. IMPRESSION: 1. Colitis of the ascending colon. No focal lesion or abnormality. 2. Multiple small cystic type lesions in both kidneys. This may represent polycystic kidney disease. No discrete solid lesion, stones or significant hydronephrosis. 3. Other chronic findings as above. Upper GI and small bowel follow-through from 09/02/18 UPPER GI W/SMALL BOWEL SERIES Indication: Decreased gastric motility. Nausea and vomiting. Comparison: None. Radiation dose: DAP 2773.24 uGym2; AK 221.8 mGy Findings: Upper GI was performed with both thin and thick barium after the ingestion of effervescent crystals. The mucosa of the esophagus is smooth without evidence of ulcer, mass, or erosion. Normal primary peristalsis is seen. There was no gastroesophageal reflux. Images of the stomach demonstrate normal mucosal rugae fold pattern. The pylorus and sweep of the duodenum are normal. There is no evidence of mass or stricture. Normal gastric motility is seen. Images of the small bowel demonstrate normal peristalsis. Spot images demonstrate normal fold pattern. There is no evidence of stricture or mass. Impression: Normal upper GI and small bowel follow-through. No evidence of gastroesophageal reflux, erosion, or ulcer. Normal peristalsis is seen in the esophagus, stomach, and small bowel. ED Course/Re-evaluation Clinical Indication for ER IV: Hydration, IV Access ED Course Patient was admitted to an examination room. H&P was done. The differential diagnoses was considered. Patient with right upper quadrant and back pain. She was seen yesterday by primary care in the office in outpatient CT was performed which shows acute colitis of the ascending colon. She was sent in by primary care for evaluation. Here in the ER. An IV was established and her port. Repeat diagnostic studies were drawn. A lipase returned at 1200. Remainder of her laboratory studies were unremarkable. She was medicated with Zofran and fentanyl IV. She became quite sick and nauseated after the fentanyl was administered. She was given Phenergan 25 mg.. Patient had blood work drawn yesterday afternoon around 6 PM. A lipase was added to that blood work, which returned at around 1000. Patient's lactate was unremarkable. 09/16/2018 1:24:48 am case was discussed with Dr. Ted Moore hospitalist on- call, who will come evaluate the patient for consideration of admission. Dr. Moore felt the patient could be discharged home with anabolic treatment for colitis. Lipase is mildly elevated. It's been elevated in the past. She likely has chronic mild pancreatitis. She is on replacement pancreatic enzymes. Patient advised to follow-up with her primary care tomorrow for close following. Decision to Disposition Date: Sep 15, 2018 Decision to Disposition Time: 23:36 Depart Departure Latest Vital Signs Vital Signs Date Time Temp Pulse Resp B/P (MAP) Pulse Ox O2 Delivery O2 Flow Rate FiO2 09/16/18 02:24 ??? 91 09/16/18 01:30 135/94 (108) 09/15/18 23:08 98.9 20 Room Air Impression: Primary Impression: Abdominal pain Additional Impressions: Colitis Chronic diarrhea Pancreatitis Condition: Improved Disposition: HOME OR SELF-CARE Referrals: LAMBERTO ANGUIANO DO (PCP) Prasanna Jason Metronidazole (FLAGYL) 500 Mg Tablet 500 MG PO BID for infection, #14 TAB Prov: DEBBY PINZON DO 09/16/18 Ciprofloxacin Hcl 500 Mg Tab (CIPRO 500 MG TAB) 500 Mg Tablet 500 MG PO BID for infection, #14 Prov: DEBBY PINZON DO 09/16/18 Patient Instructions: Clear Liquid Diet (ED), Colitis (ED) Additional Instructions: Follow clear liquid diet for 48 hours Follow-up with your primary care physician tomorrow for recheck Problem Qualifiers Primary Impression: Abdominal pain Abdominal location: right upper quadrant Qualified Codes: R10.11 - Right upper quadrant pain Additional Impressions: Pancreatitis Chronicity: acute Pancreatitis type: unspecified pancreatitis type Acute pancreatitis complication: unspecified Qualified Codes: K85.90 - Acute pancreatitis without necrosis or infection, unspecified DEBBY PINZON DO Sep 15, 2018 23:31
[2018-09-15] MEDS ORDERED: NS(*) 0.9% 1000 ML BAG 1,000 ML IV ONE (23:32)
[2018-09-15] MEDS ORDERED: ONDANSETRON 4 MG/2 ML VIAL IVP ONE (23:35)
[2018-09-15] MEDS ORDERED: fentaNYL CITR 100 MCG/2 ML AMP IVP ONE (23:35)
[2018-09-16] MEDS ORDERED: PROMETHAZINE 25 MG/ML 1 ML AMP IVP ONE (00:20)
[2018-09-16 00:24] LABS: PLATELET COUNT, AUTOMATED 285 K/uL (150-450)
[2018-09-16 01:30] VITALS: BP 135/94
[2018-09-16] MEDS ORDERED: METR-1 PO (02:22)
[2018-09-16] MEDS ORDERED: CIPR-344 PO (02:22)
[2018-09-16] MEDS ORDERED: METRONIDAZOLE 500 MG TABLET PO ONE (02:25)
[2018-09-16] MEDS ORDERED: CIPROFLOXACIN 500 MG TAB PO ONE (02:25)
--- NOTE | 2018-09-16 02:30 | Hospitalist Consultation ---
History of Present Illness Requesting Physician Wero Reason for Consult Elevated Lipase History of Present Illness 38yo female with chronic nausea/vomiting and features of MEN-1 who was told to go to the ER by her PCP based on CT findings concerning for ascending colitis. 2 days, ago she developed right sided abdominal pain that went to the right flank. It was sharp and fairly severe. The has continued, but waxes and wanes in intensity. She vomited 2 times the day of the pain occurrence, but is back to her baseline nausea. Her stool consistency hasn't changed. She saw her PCP yesterday and had a CT that was concerning ascending colitis. She didn't want to go to the ER at first, but finally went because the pain wasn't improving. She denies f/c. In the ER, she received Fentanyl, Zofran and Phenergan with some improvement. History Problems: (1) Bipolar 1 disorder with moderate kandis Status: Chronic (2) Hypothyroidism Status: Chronic (3) Delayed gastric emptying Status: Chronic (4) GERD (gastroesophageal reflux disease) Status: Chronic (5) Hyperparathyroidism Status: Chronic (6) Chronic diarrhea Status: Chronic (7) Elevated serum creatinine Status: Chronic Home Meds Active Scripts Metronidazole (FLAGYL) 500 Mg Tablet, 500 MG PO BID for infection, #14 TAB Prov:DEBBY PINZON Luba RASCON 09/16/18 Ciprofloxacin Hcl 500 Mg Tab (CIPRO 500 MG TAB) 500 Mg Tablet, 500 MG PO BID for infection, #14 Prov:DEBBY PINZON Luba DO 09/16/18 Calcitriol (CALCITRIOL) 0.5 Mcg Capsule, 2 CAP PO QDAY, #60 CAPSULE 3 Refills Prov:VILMA ROWAN MD 09/14/18 Omeprazole (OMEPRAZOLE) 40 Mg Capsule., 1 CAP PO BID, #60 CAP 3 Refills Prov:VILMA ROWAN MD 08/28/18 Ranitidine Hcl (RANITIDINE HCL) 150 Mg Capsule, 1 CAP PO BID, #60 CAPSULE 6 Refills Prov:VILMA ROWAN MD 08/19/18 Lipase/Protease/Amylase (CREON 36,000 UNITS CAPSULE) 1 Each Capsule., 1 CAP PO QID, #120 CAP 6 Refills Take 1 capsule before meals, 4 times every day Prov:VILMA ROWAN MD 08/14/18 Promethazine Hcl (PROMETHAZINE HCL) 25 Mg Tablet, 1 TAB PO Q8H PRN for NAUSEA/VOMITING, #30 TAB 3 Refills Prov:VILMA ROWAN MD 07/20/18 Dicyclomine Hcl (DICYCLOMINE HCL) 20 Mg Tablet, 1 TAB PO BID, #60 TAB 6 Refills Prov:VILMA ROWAN MD 06/09/18 Meclizine Hcl (MECLIZINE HCL) 25 Mg Tablet, 1 TAB PO BID, #60 TAB 3 Refills Prov:VILMA ROWAN MD 05/04/18 Diphenoxylate Hcl/Atropine (LOMOTIL TABLET) 1 Each Tablet, 1-2 TAB PO QID PRN for DIARRHEA, #60 TAB 3 Refills Prov:VILMA ROWAN MD 04/06/18 Ondansetron (ONDANSETRON ODT) 8 Mg Tab.rapdis, 1 TAB PO BID PRN for NAUSEA/VOMITING, #30 TAB 3 Refills Prov:VILMA ROWAN MD 03/28/18 Cholestyramine (With Sugar) (CHOLESTYRAMINE PACKET) 4 Gm Powd.pack, 1 PACK PO QDAY, #90 PACK 6 Refills Prov:VILMA ROWAN MD 01/26/18 Glycopyrrolate (GLYCOPYRROLATE) 1 Mg Tablet, 0.5 TAB PO QDAY, #30 TAB 3 Refills Prov:VILMA ROWAN MD 01/26/18 Reported Medications Pramipexole Di-Hcl (MIRAPEX) 0.125 Mg Tablet, 3 TAB PO QHS 06/23/18 Pyridoxine Hcl (VITAMIN B-6) 25 Mg Tablet, 25 MG PO DAILY 06/23/18 [Clindamycin] No Conflict Check, 1 SCOTT TOP QDAY 06/02/18 Lamotrigine (LAMOTRIGINE) 150 Mg Tablet, 150 MG PO BID 12/22/17 Acetaminophen 500 Mg Tab (ACETAMINOPHEN EXTRA STRENGTH) 500 Mg Tablet, 500 MG PO PRN PRN for PAIN, TAB 12/22/17 Levothyroxine Sodium (LEVOTHYROXINE SODIUM) 75 Mcg Tablet, 75 MCG PO QDAY, TAB 12/12/17 [place] Carbonate (LITHIUM CARBONATE) 300 Mg Cap, 3 CAP PO HS, CAP 10/30/17 Minocycline Hcl (MINOCYCLINE HCL) 100 Mg Tablet, 1 TAB PO BID, CAPSULE 10/30/17 Clonazepam (CLONAZEPAM) 2 Mg Tab.rapdis, 1-3 TAB PO QHS, #6 TAB 10/30/17 Carvedilol (CARVEDILOL) 12.5 Mg Tablet, 12.5 MG PO BID, #10 TAB 09/17/17 Perphenazine (PERPHENAZINE) 8 Mg Tablet, 4 MG PO BID 03/30/17 Losartan Potassium (LOSARTAN POTASSIUM) 50 Mg Tablet, 1 TAB PO HS 03/30/17 Fluvoxamine Maleate (FLUVOXAMINE MALEATE) 50 Mg Tablet, 50 MG PO HS 07/20/15 Allergies: Coded Allergies: desvenlafaxine (Verified Allergy, Intermediate, EXTREMELY DROWSY, 06/23/18) risperidone (Verified Allergy, Intermediate, EXTREMELY DROWSY, 06/23/18) aripiprazole (Verified Allergy, Unknown, FACIAL AND NECK SWELLING, 02/04/16) asenapine (Verified Allergy, Unknown, NUMB TONGUE, 02/04/16) gabapentin (Verified Allergy, Unknown, MANIC, 02/04/16) hydralazine (Verified Allergy, Unknown, 02/04/16) paliperidone (Verified Allergy, Unknown, SLEEPS TOO MUCH, 02/04/16) quetiapine (Verified Allergy, Unknown, EXCESSIVE EATING, 02/04/16) sertraline (Verified Allergy, Unknown, 02/04/16) ziprasidone (Verified Allergy, Unknown, EXCESSIVE SLEEPING, 02/04/16) vortioxetine (Unverified Adverse Reaction, Intermediate, 03/30/17) Rash scopolamine (Verified Adverse Reaction, Unknown, blister, 04/29/18) Patient History: FH polycystic kidney MOTHER FH: brain cancer UNLISTED RELATION FH: breast cancer UNLISTED RELATION FH: pancreatic cancer UNLISTED RELATION FH: prostate cancer UNLISTED RELATION FH: thyroid disease MOTHER Gout MOTHER High cholesterol MOTHER Hx Smoking: No (OCCASIONAL SMOKING ) Smoking Status: Former Smoker Exposure to Second Hand Smoke?: Yes ( IS SMOKER ) Caffeine Intake: Tea Caffeine/Cups Per Day: RARE, HERBAL TEAS Hx Alcohol Use: Yes Hx Substance Use Disorder: No Social Drug Use: Never Review of Systems All Systems Reviewed/Normal: Yes, Except as Noted Exam Vital Signs Vital Signs Date Time Temp Pulse Resp B/P (MAP) Pulse Ox O2 Delivery O2 Flow Rate FiO2 09/15/18 23:08 98.9 97 20 154/110 100 Room Air General Appearance: Alert, Awake, No Acute Distress Neuro: No Gross deficits Eyes: PERRLA ENT: Moist Mucous Membranes Cardiovascular: Regular Rate and Rhythm Respiratory: Clear to Auscultation GI: Other (Soft, non-distended, palpation on the left gives mild discomfort on the right. Pain over the right with palpation but mild. No perotineal signs. R sided flank pain with palpation, but mild.) Extremities: No Edema Integumentary: No Jaundice, No Cyanosis Medical Decision Making Data Points Result Diagram: 09/16/186 09/16/1815 Item Value Date Time Erythrocyte Sedimentation Rate 13 mm/HOUR 09/16/18 001 Neutrophils (%) (Auto) 64.5 % 09/16/18 0016 Lymphocytes (%) (Auto) 24.7 % 09/16/18 0016 Monocytes (%) (Auto) 7.1 % 09/16/18 0016 Eosinophils (%) (Auto) 3.3 % 09/16/18 0016 Basophils (%) (Auto) 0.4 % 09/16/18 0016 White Blood Count 9.4 k/uL 09/15/18 1633 White Blood Count 9.5 k/uL 09/16/18 0016 Neutrophils (%) (Auto) 71.8 % 09/15/18 1633 Lymphocytes (%) (Auto) 20.1 % 09/15/18 1633 Monocytes (%) (Auto) 4.8 % 09/15/18 1633 Eosinophils (%) (Auto) 2.7 % 09/15/18 1633 Basophils (%) (Auto) 0.6 % 09/15/18 1633 Lipase 1058 U/L H 09/16/18 0000 Lipase 1274 U/L H 09/16/18 0016 Amylase Level 250 U/L H 09/16/18 0016 C-Reactive Protein 2.0 mg/dl H 09/16/18 0016 Total Protein 6.1 g/dl L 09/16/18 0016 Albumin 3.4 g/dl L 09/16/18 0016 Lactate 1.1 mmol/L 09/16/18 0016 Calcium Level 9.5 mg/dl 09/16/18 0016 Total Bilirubin 0.2 mg/dl 09/16/18 0016 Aspartate Amino Transf (AST/SGOT) 22 U/L 09/16/18 0016 Alanine Aminotransferase (ALT/SGPT) 37 U/L 09/16/18 0016 Alkaline Phosphatase 72 U/L 09/16/18 0016 Creatinine 1.40 mg/dl H 09/15/18 1633 Creatinine 1.20 mg/dl H 09/16/18 0016 Blood Urea Nitrogen 14 mg/dl 09/15/18 1633 Blood Urea Nitrogen 15 mg/dl 09/16/18 0016 Urine RBC None /HPF 09/16/18 0040 Urine WBC 1 /HPF 09/16/18 0040 Urine Squamous Epithelial Cells Many /LPF H 09/16/18 0040 Urine Bacteria Few /HPF 09/16/18 0040 Urine Mucus None /HPF 09/16/18 0040 [place] Level 0.7 mmol/L 09/15/18 1635 EKG / Imaging Imaging 09/15/18 CT of abd/pelvis - 1. Colitis of the ascending colon. No focal lesion or abnormality. 2. Multiple small cystic type lesions in both kidneys. This may represent polycystic kidney disease. No discrete solid lesion, stones or significant hydronephrosis. 3. Other chronic findings as above. Assessment and Plan Problems: (1) Colitis Status: Acute Assessment & Plan: She presented with 2 days of right sided intermittent, sharp, moderate to severe abdominal pain. CT scan shows new thickening of the ascending colon. She is afebrile. Her abdominal exam is soft, non-distended and with moderate right sided pain with palpation and has no epigastric pain. She has a normal WBC, neutrophil percentage, and lactated. She is tolerating oral intake like she normally does (chronically has nausea and vomiting daily). The pain is manageable and she would like to go home. Because she is not toxic appearing and tolerating oral intake, she can go home with a trial of oral Cipro and Flagyl. She has followup with Dr. Daniels tomorrow. She was told to have a liquid diet until the pain improves. She was told to come back to the ER for worsening pain, fevers/chills, or worsening vomiting. She and her expressed understanding. (2) Elevated lipase Status: Acute Assessment & Plan: The etiology is unclear. Looking back at her labs, she has had intermittent elevation of lipase. CT scan and exam are not consistent with acute pancreatitis. 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 See above. Copies to: LAMBERTO ANGUIANO DO; DEBBY PINZON DO; VILMA ROWAN MD; AMINAH DANIELS MD ; Venous Thromboembolism Antithrombotics Is Pt On Any Antithrombotics?: No Exam Sepsis Risk: No Definite Risk NABILA OBRIEN MD Sep 16, 2018 02:30
[2018-09-16] MEDS ORDERED: oxyCODONE/ACETAMIN 5/325MG TH 2 TAB/BOTTLE PO ONE (02:40)
[2018-09-16] MEDS ORDERED: PROM-110 PO (11:06)
[2018-09-21] MEDS ORDERED: MECL25TA9 PO (08:51)
== END 2018-09-16 02:29 | disposition home or self-care (01) ==
LOC: ER 23:19
DX: K52.9 Noninfective gastroenteritis and colitis, unspecified (principal); K85.90 Acute pancreatitis without necrosis or infection, unspecified
CPT/HCPCS: 36591; 74178; 80178; 81001; 82150; 83605; 83690; 85025; 85651; 86140; 96374; 96375; 99284; A9270; J1642; J2405; J2550; J3010; J7030; Q9967; 82040; 82247; 82310; 82374; 82435; 82565; 82947; 84075; 84132; 84155; 84295; 84450; 84460; 84520

== ENCOUNTER → 2018-09-15 | Outpatient (CLI) | payer MEDICARE, MEDICAID ==
[~2018-09-15] MED LIST changes: -ALTEPLASE RECOMB 2 MG VIAL IVP PRN; +CIPR-344 PO; -DEXTROSE 5%(*) 100 ML BAG 100 ML IVPB PRN; -HEPARIN FLSH (PORT) 500 UN/5ML IVP PRN; +IOPAMIDOL 76% 75 ML INFUS BTL 75 ML ONE; -LIDOCAINE/SOD BICARB 8.4% SYR ID PRN; -LOSA25TA52 PO; +LOSA25TA57 PO; -LOSA50TA74 PO; +LOSA50TA80 PO; +METR-1 PO; -NS(*) 0.9% 100 ML BAG 100 ML IVPB PRN; -NS(*) 0.9% 500 ML BAG 500 ML IV PRN; -WATER FOR INJ,STERILE 20 ML IVP PRN
--- NOTE | 2018-09-15 19:13 | RADIOLOGY IMAGING REPORT ---
FACILITY: [facility] PATIENT NAME: Kriss Azevedo : 1980 MR: [id number] V: [id number] EXAM DATE: ORDERING PHYSICIAN: AMINAH DANIELS TECHNOLOGIST: Location: [facility] [place] Patient: Kriss Azevedo : 1980 Visit/Account:[id number] Date of Sevice: 09/15/2018 CT abdomen and pelvis without and with IV contrast Indication: Right-sided abdominal pain. Comparison: 09/11/2017.. Technique: Axial CT images were obtained through the abdomen and pelvis prior to and during injecti on of nonionic iodinated intravenous contrast. Reformatted coronal and sagittal images were also obta ined. One of the following dose optimization techniques was utilized in the performance of this exam: Autom ated exposure control; adjustment of the mA and/or kV according to the patient's size; or use of an i terative reconstruction technique. Specific details can be referenced in the facility's radiology C T exam operational policy. Contrast: 75 ml of Isovue-370 IV contrast. Findings: Lower lung luu: Mild scarring, otherwise clear. Liver: Mildly diffusely hypodense suggestive mild fatty infiltration or chronic disease.. No focal l esions. The vasculature appears patent. Biliary: Status post cholecystectomy. The biliary system is unremarkable. Pancreas: No focal abnormality. Spleen: Normal appearance. Adrenal glands: Unremarkable. Kidneys / retroperitoneum: No kidney stones are seen in the collecting system of either kidney. The right kidney shows minimally prominent collecting system which is stable and likely chronic. There i s no stones or dilatation of the ureters. Both kidneys show innumerable small varices size hypodense lesions, likely small cysts, some which are hyperdense. There is a couple punctate calcifications i n the parenchyma of the left kidney. No discrete solid renal lesions. Bowel / peritoneum / mesenteries: The ascending colon does show wall thickening and mild inflammatory stranding without a focal abnormality. This is new from the previous examination. Colon shows no o ther focal abnormality. The appendix is not definitely visualized may been surgically removed. The small bowel shows no focal abnormality or obstruction. The stomach is unremarkable. No free air, free fluid, fluid collections or other areas of inflammation. Small umbilical hernia co ntaining fat. Lymph node assessment: No pathologic adenopathy identified. Pelvic structures: Status post hysterectomy. Both ovaries appear normal. The remaining pelvic st ructures visualized within normal limits. Vessels: No significant atherosclerotic calcifications seen throughout a nonaneurysmal abdominal aort a and branches. Musculoskeletal / Body wall: No acute or aggressive osseous abnormality. IMPRESSION: 1. Colitis of the ascending colon. No focal lesion or abnormality. 2. Multiple small cystic type lesions in both kidneys. This may represent polycystic kidney disease . No discrete solid lesion, stones or significant hydronephrosis. 3. Other chronic findings as above. I called report to AMINAH DANIELS at 09/15/2018 7:09 PM. Report Dictated By: Arthur Billy at 09/15/2018 6:58 PM Report E-Signed By: Arthur Billy at 09/15/2018 7:10 PM WSN:[id number]
== END ==
LOC: CT 17:50
PROVIDERS: ATTEND Family Medicine
DX: N28.9 Disorder of kidney and ureter, unspecified (principal); R10.817 Generalized abdominal tenderness
CPT/HCPCS: 74178; Q9967

== ENCOUNTER → 2018-09-15 | Outpatient (CLI) | payer MEDICARE, MEDICAID ==
[~2018-09-15] MED LIST changes: +ALTEPLASE RECOMB 2 MG VIAL IVP PRN; +DEXTROSE 5%(*) 100 ML BAG 100 ML IVPB PRN; +HEPARIN FLSH (PORT) 500 UN/5ML IVP PRN; -IOPAMIDOL 76% 75 ML INFUS BTL 75 ML ONE; +LIDOCAINE/SOD BICARB 8.4% SYR ID PRN; +NS(*) 0.9% 100 ML BAG 100 ML IVPB PRN; +NS(*) 0.9% 500 ML BAG 500 ML IV PRN; +WATER FOR INJ,STERILE 20 ML IVP PRN
[2018-09-15 16:36] VITALS: BP 129/79
[2018-09-15 16:41] LABS: PLATELET COUNT, AUTOMATED 284 K/uL (150-450)
== END ==
LOC: SPU 16:16
PROVIDERS: ATTEND Family Medicine
DX: R10.817 Generalized abdominal tenderness (principal)
CPT/HCPCS: 36591; 80178; 85025; J1642; 82040; 82247; 82310; 82374; 82435; 82565; 82947; 84075; 84132; 84155; 84295; 84450; 84460; 84520

== ENCOUNTER → 2018-09-21 | Outpatient (CLI) | payer MEDICARE, MEDICAID ==
[~2018-09-21] MED LIST changes: +CIPR-344 PO; +METR-1 PO
--- NOTE | 2018-09-21 13:50 | RADIOLOGY IMAGING REPORT ---
FACILITY: [facility] [place] PATIENT NAME: Kriss Azevedo : 1980 MR: [id number] V: [id number] EXAM DATE: ORDERING PHYSICIAN: VILMA ROWAN TECHNOLOGIST: Location: [facility] Patient: Kriss Azevedo : 1980 Visit/Account:[id number] Date of Sevice: 09/21/2018 Exam type: GASTRIC EMPTYING History: Nausea, vomiting, history pancreatitis and colitis Comparison: None. Findings: The patient received 2.1 mCi of technetium 99m sulfur colloid in 4 ounces of egg beaters with two sli pedro of toast in 4 ounces of water consumed within 10 minutes. Anterior and posterior imaging of the abdomen was performed immediately post meal ingestion, at one hour, two hours, three hours and four h ours post meal consumption. At four hours 100% of gastric contents had emptied the T 1/2 gastric kaylie ging time was 89 minutes IMPRESSION: 1. 100% of gastric contents had emptied at four hours Report Dictated By: Mei Carbone MD at 09/21/2018 1:18 PM Report E-Signed By: Mei Carbone MD at 09/21/2018 1:45 PM WSN:[email or web address]
== END ==
LOC: NUC 03:36
PROVIDERS: ATTEND Surgery
DX: K30 Functional dyspepsia (principal); R11.2 Nausea with vomiting, unspecified
CPT/HCPCS: 78264; A9541

== ENCOUNTER → 2018-10-13 | Outpatient (CLI) | payer MEDICARE, MEDICAID ==
[~2018-10-13] MED LIST changes: +ALTEPLASE RECOMB 2 MG VIAL IVP PRN; +DEXTROSE 5%(*) 100 ML BAG 100 ML IVPB PRN; +HEPARIN FLSH (PORT) 500 UN/5ML IVP PRN; +LIDOCAINE/SOD BICARB 8.4% SYR ID PRN; +NS(*) 0.9% 100 ML BAG 100 ML IVPB PRN; +NS(*) 0.9% 500 ML BAG 500 ML IV PRN; +WATER FOR INJ,STERILE 20 ML IVP PRN
[2018-10-13 11:31] LABS: PLATELET COUNT, AUTOMATED 252 K/uL (150-450)
== END ==
LOC: SPU 10:25
PROVIDERS: ATTEND Surgery
DX: Z45.2 Encounter for adjustment and management of vascular access device (principal); E03.9 Hypothyroidism, unspecified; R19.7 Diarrhea, unspecified; R11.2 Nausea with vomiting, unspecified; E31.21 Multiple endocrine neoplasia [MEN] type I; E55.9 Vitamin D deficiency, unspecified
CPT/HCPCS: 36415; 82040; 82247; 82306; 82310; 82374; 82435; 82565; 82947; 84075; 84132; 84155; 84295; 84443; 84450; 84460; 84520; 85025

== ENCOUNTER 2018-10-22 14:22 | Emergency (ER) | payer MEDICARE, MEDICAID ==
[~2018-10-22 14:22] MED LIST changes: -ALTEPLASE RECOMB 2 MG VIAL IVP PRN; -DEXTROSE 5%(*) 100 ML BAG 100 ML IVPB PRN; -HEPARIN FLSH (PORT) 500 UN/5ML IVP PRN; -LIDOCAINE/SOD BICARB 8.4% SYR ID PRN; -NS(*) 0.9% 100 ML BAG 100 ML IVPB PRN; -NS(*) 0.9% 500 ML BAG 500 ML IV PRN; -WATER FOR INJ,STERILE 20 ML IVP PRN
[2018-10-22] MEDS ORDERED: OXYC-865 PO (14:45)
[2018-10-22] MEDS ORDERED: NS(*) 0.9% 1000 ML BAG 1,000 ML IV ONE (14:55)
--- NOTE | 2018-10-22 15:15 | ER Report ---
History and Physical Time Seen By MD: 14:40 Hx. of Stated Complaint: "colitis" n/v/d. ruq pain worsening since yesterday HPI/ROS CHIEF COMPLAINT: Abdominal pain HISTORY OF PRESENT ILLNESS: 38-year-old female presents with right-sided abdominal pain. She last had similar pain one month ago and states she had colitis, was placed on Flagyl and Cipro. Patient completely resolved, but developed renewed pain yesterday. It has eased somewhat with vomiting. Pt tooke percocet x 3 yest with some relief as well. She states she has vomiting every day as part of unclear diagnosis that has been evaluated by multiple providers. She denies fevers, chills, new weakness, change in baseline diarrhea, bloody stool, uti symptoms. She is status post appendectomy, cholecystectomy, hysterectomy REVIEW OF SYSTEMS: Constitutional: No fever, no chills. Eyes: no blurred vision ENT: No sore throat. Cardiovascular: No chest pain, no palpitations. Respiratory: No cough, no shortness of breath. Gastrointestinal: above Genitourinary: no dysuria Musculoskeletal: No back pain. Skin: No rashes. Neurological: No headache. Remainder of the 14 system rev: Yes Allergies: Coded Allergies: desvenlafaxine (Verified Allergy, Intermediate, EXTREMELY DROWSY, 06/23/18) risperidone (Verified Allergy, Intermediate, EXTREMELY DROWSY, 06/23/18) aripiprazole (Verified Allergy, Unknown, FACIAL AND NECK SWELLING, 02/04/16) asenapine (Verified Allergy, Unknown, NUMB TONGUE, 02/04/16) gabapentin (Verified Allergy, Unknown, MANIC, 02/04/16) hydralazine (Verified Allergy, Unknown, 02/04/16) paliperidone (Verified Allergy, Unknown, SLEEPS TOO MUCH, 02/04/16) quetiapine (Verified Allergy, Unknown, EXCESSIVE EATING, 02/04/16) sertraline (Verified Allergy, Unknown, 02/04/16) ziprasidone (Verified Allergy, Unknown, EXCESSIVE SLEEPING, 02/04/16) vortioxetine (Unverified Adverse Reaction, Intermediate, 03/30/17) Rash scopolamine (Verified Adverse Reaction, Unknown, blister, 04/29/18) Home Meds Active Scripts Meclizine Hcl (MECLIZINE HCL) 25 Mg Tablet, 1 TAB PO BID, #60 TAB 3 Refills Prov:VILMA ROWAN MD 09/21/18 Promethazine Hcl (PROMETHAZINE HCL) 25 Mg Tablet, 1 TAB PO Q8H PRN for NAUSE A/VOMITING, #30 TAB 3 Refills Prov:VILMA ROWAN MD 09/16/18 Calcitriol (CALCITRIOL) 0.5 Mcg Capsule, 2 CAP PO QDAY, #60 CAPSULE 3 Refills Prov:VILMA ROWAN MD 09/14/18 Omeprazole (OMEPRAZOLE) 40 Mg Capsule.dr, 1 CAP PO BID, #60 CAP 3 Refills Prov:VILMA ROWAN MD 08/28/18 Ranitidine Hcl (RANITIDINE HCL) 150 Mg Capsule, 1 CAP PO BID, #60 CAPSULE 6 Refills Prov:VILMA ROWAN MD 08/19/18 Lipase/Protease/Amylase (CREON DR 36,000 UNITS CAPSULE) 1 Each Capsule.dr, 1 CAP PO QID, #120 CAP 6 Refills Take 1 capsule before meals, 4 times every day Prov:VILMA ROWAN MD 08/14/18 Dicyclomine Hcl (DICYCLOMINE HCL) 20 Mg Tablet, 1 TAB PO BID, #60 TAB 6 Refills Prov:VILMA ROWAN MD 06/09/18 Diphenoxylate Hcl/Atropine (LOMOTIL TABLET) 1 Each Tablet, 1-2 TAB PO QID PRN for DIARRHEA, #60 TAB 3 Refills Prov:VILMA ROWAN MD 04/06/18 Ondansetron (ONDANSETRON ODT) 8 Mg Tab.rapdis, 1 TAB PO BID PRN for NAUSEA/VOMITING, #30 TAB 3 Refills Prov:VILMA ROWAN MD 03/28/18 Cholestyramine (With Sugar) (CHOLESTYRAMINE PACKET) 4 Gm Powd.pack, 1 PACK PO QDAY, #90 PACK 6 Refills Prov:VILMA ROWAN MD 01/26/18 Glycopyrrolate (GLYCOPYRROLATE) 1 Mg Tablet, 0.5 TAB PO QDAY, #30 TAB 3 Refills Prov:VILMA ROWAN MD 01/26/18 Reported Medications Oxycodone Hcl/Acetaminophen (PERCOCET 5-325 MG TABLET) 1 Each Tablet, 1 EACH PO, TAB 10/22/18 Pramipexole Di-Hcl (MIRAPEX) 0.125 Mg Tablet, 3 TAB PO QHS 06/23/18 Pyridoxine Hcl (VITAMIN B-6) 25 Mg Tablet, 25 MG PO DAILY 06/23/18 [Clindamycin] No Conflict Check, 1 SCOTT TOP QDAY 06/02/18 Lamotrigine (LAMOTRIGINE) 150 Mg Tablet, 150 MG PO BID 12/22/17 Acetaminophen 500 Mg Tab (ACETAMINOPHEN EXTRA STRENGTH) 500 Mg Tablet, 500 MG PO PRN PRN for PAIN, TAB 12/22/17 Levothyroxine Sodium (LEVOTHYROXINE SODIUM) 75 Mcg Tablet, 50 MCG PO QDAY, TAB 12/12/17 [place] Carbonate (LITHIUM CARBONATE) 300 Mg Cap, 3 CAP PO HS, CAP 10/30/17 Minocycline Hcl (MINOCYCLINE HCL) 100 Mg Tablet, 1 TAB PO BID, CAPSULE 10/30/17 Clonazepam (CLONAZEPAM) 2 Mg Tab.rapdis, 1-3 TAB PO QHS, #6 TAB 10/30/17 Carvedilol (CARVEDILOL) 12.5 Mg Tablet, 12.5 MG PO BID, #10 TAB 09/17/17 Perphenazine (PERPHENAZINE) 8 Mg Tablet, 4 MG PO BID 03/30/17 Losartan Potassium (LOSARTAN POTASSIUM) 50 Mg Tablet, 1 TAB PO HS 03/30/17 Fluvoxamine Maleate (FLUVOXAMINE MALEATE) 50 Mg Tablet, 50 MG PO HS 07/20/15 Discontinued Scripts Metronidazole (FLAGYL) 500 Mg Tablet, 500 MG PO BID for infection, #14 TAB Prov:DEBBY PINZON DO 09/16/18 Ciprofloxacin Hcl 500 Mg Tab (CIPRO 500 MG TAB) 500 Mg Tablet, 500 MG PO BID for infection, #14 Prov:DEBBY PINZON DO 09/16/18 Reviewed Nurses Notes: Yes Old Medical Records Reviewed: Yes Hx Smoking: No (OCCASIONAL SMOKING ) Smoking Status: Former Smoker Exposure to Second Hand Smoke?: Yes ( IS SMOKER ) Hx Substance Use Disorder: No Hx Alcohol Use: Yes Constitutional Vital Sign - Last 24 Hours 10/22/18 14:31 Temp 98.6 Pulse 105 Resp 16 B/P (MAP) 146/113 Pulse Ox 97 O2 Delivery Room Air Physical Exam General Appearance: The patient is alert, has no immediate need for airway protection and no signs of toxicity. Eyes: Pupils equal and round no pallor or injection. ENT, Mouth: Mucous membranes are moist. Respiratory: There are no retractions, lungs are clear to auscultation. Cardiovascular: Regular rate and rhythm. Gastrointestinal: abdomen mild right mid quadrant ttp, no masses. no peritoneal sgs Neurological: alert, moves all ext Skin: Warm and dry, no rashes. Musculoskeletal: Extremities are nontender, nonswollen and have full range of motion. DIFFERENTIAL DIAGNOSIS: After history and physical exam differential diagnosis was considered for abdominal pain including but not limited to colitis, nephrolithiasis, gastritis and urinary tract infection. Medical Decision Making Data Points Result Diagram: 10/22/18 1516 10/22/18 1516 Laboratory Hematology Test 10/22/18 14:28 10/22/18 15:16 Urine Color Yellow Urine Clarity Slightly-cloudy Urine pH 7.0 pH (4.8-9.5) Urine Specific [place] 1.003 Urine Protein Negative mg/dL (NEGATIVE) Urine Glucose (UA) Negative mg/dL (NEGATIVE) Urine Ketones Negative mg/dL (NEGATIVE) Urine Blood Moderate (NEGATIVE) Urine Nitrite Negative (NEGATIVE) Urine Bilirubin Negative (NEGATIVE) Urine Urobilinogen Negative mg/dL (0.2-1.9) Urine Leukocyte Esterase Negative (NEGATIVE) Urine RBC 1 /HPF (0-2/HPF) Urine WBC 4 /HPF (0-5/HPF) Urine Squamous Epithelial Cells Many /LPF (</=FEW) Urine Bacteria Many /HPF (NONE-FEW) Urine Mucus None /HPF (NONE-FEW) Red Blood Count 4.09 M/uL (4.17-5.56) Mean Corpuscular Volume 92.5 fL (80.0-96.0) Mean Corpuscular Hemoglobin 31.4 pg (26.0-33.0) Mean Corpuscular Hemoglobin Concent 33.9 g/dL (32.0-36.0) Red Cell Distribution Width 13.9 % (11.5-14.5) Mean Platelet Volume 7.3 fL (7.2-11.1) Neutrophils (%) (Auto) 73.0 % (39.4-72.5) Lymphocytes (%) (Auto) 18.7 % (17.6-49.6) Monocytes (%) (Auto) 5.7 % (4.1-12.4) Eosinophils (%) (Auto) 2.2 % (0.4-6.7) Basophils (%) (Auto) 0.4 % (0.3-1.4) Nucleated RBC Relative Count (auto) 0.0 /100WBC Neutrophils # (Auto) 7.6 K/uL (2.0-7.4) Lymphocytes # (Auto) 2.0 K/uL (1.3-3.6) Monocytes # (Auto) 0.6 K/uL (0.3-1.0) Eosinophils # (Auto) 0.2 K/uL (0.0-0.5) Basophils # (Auto) 0.0 K/uL (0.0-0.1) Nucleated RBC Absolute Count (auto) 0.00 K/uL Sodium Level 136 mmol/L (137-145) Potassium Level 3.7 mmol/L (3.5-5.0) Chloride Level 105 mmol/L (98-107) Carbon Dioxide Level 24 mmol/L (22-31) Blood Urea Nitrogen 14 mg/dl (7-18) Creatinine 1.40 mg/dl (0.52-1.04) Glomerular Filtration Rate Calc 42.5 Random Glucose 78 mg/dl (75-110) Calcium Level 9.5 mg/dl (8.4-10.2) Total Bilirubin 0.5 mg/dl (0.2-1.3) Aspartate Amino Transf (AST/SGOT) 38 U/L (0-35) Alanine Aminotransferase (ALT/SGPT) 48 U/L (0-56) Alkaline Phosphatase 67 U/L (0-126) Total Protein 6.4 g/dl (6.3-8.2) Albumin 3.6 g/dl (3.5-5.0) Lipase 272 U/L (23-300) Chemistry Test 10/22/18 14:28 10/22/18 15:16 Urine Color Yellow Urine Clarity Slightly-cloudy Urine pH 7.0 pH (4.8-9.5) Urine Specific [place] 1.003 Urine Protein Negative mg/dL (NEGATIVE) Urine Glucose (UA) Negative mg/dL (NEGATIVE) Urine Ketones Negative mg/dL (NEGATIVE) Urine Blood Moderate (NEGATIVE) Urine Nitrite Negative (NEGATIVE) Urine Bilirubin Negative (NEGATIVE) Urine Urobilinogen Negative mg/dL (0.2-1.9) Urine Leukocyte Esterase Negative (NEGATIVE) Urine RBC 1 /HPF (0-2/HPF) Urine WBC 4 /HPF (0-5/HPF) Urine Squamous Epithelial Cells Many /LPF (</=FEW) Urine Bacteria Many /HPF (NONE-FEW) Urine Mucus None /HPF (NONE-FEW) White Blood Count 10.5 k/uL (4.5-11.0) Red Blood Count 4.09 M/uL (4.17-5.56) Hemoglobin 12.8 g/dL (12.0-16.0) Hematocrit 37.8 % (34.0-47.0) Mean Corpuscular Volume 92.5 fL (80.0-96.0) Mean Corpuscular Hemoglobin 31.4 pg (26.0-33.0) Mean Corpuscular Hemoglobin Concent 33.9 g/dL (32.0-36.0) Red Cell Distribution Width 13.9 % (11.5-14.5) Platelet Count 305 K/uL (150-450) Mean Platelet Volume 7.3 fL (7.2-11.1) Neutrophils (%) (Auto) 73.0 % (39.4-72.5) Lymphocytes (%) (Auto) 18.7 % (17.6-49.6) Monocytes (%) (Auto) 5.7 % (4.1-12.4) Eosinophils (%) (Auto) 2.2 % (0.4-6.7) Basophils (%) (Auto) 0.4 % (0.3-1.4) Nucleated RBC Relative Count (auto) 0.0 /100WBC Neutrophils # (Auto) 7.6 K/uL (2.0-7.4) Lymphocytes # (Auto) 2.0 K/uL (1.3-3.6) Monocytes # (Auto) 0.6 K/uL (0.3-1.0) Eosinophils # (Auto) 0.2 K/uL (0.0-0.5) Basophils # (Auto) 0.0 K/uL (0.0-0.1) Nucleated RBC Absolute Count (auto) 0.00 K/uL Glomerular Filtration Rate Calc 42.5 Calcium Level 9.5 mg/dl (8.4-10.2) Total Bilirubin 0.5 mg/dl (0.2-1.3) Aspartate Amino Transf (AST/SGOT) 38 U/L (0-35) Alanine Aminotransferase (ALT/SGPT) 48 U/L (0-56) Alkaline Phosphatase 67 U/L (0-126) Total Protein 6.4 g/dl (6.3-8.2) Albumin 3.6 g/dl (3.5-5.0) Lipase 272 U/L (23-300) Urinalysis Test 10/22/18 14:28 Urine Color Yellow Urine Clarity Slightly-cloudy Urine pH 7.0 pH (4.8-9.5) Urine Specific [place] 1.003 Urine Protein Negative mg/dL (NEGATIVE) Urine Glucose (UA) Negative mg/dL (NEGATIVE) Urine Ketones Negative mg/dL (NEGATIVE) Urine Blood Moderate (NEGATIVE) Urine Nitrite Negative (NEGATIVE) Urine Bilirubin Negative (NEGATIVE) Urine Urobilinogen Negative mg/dL (0.2-1.9) Urine Leukocyte Esterase Negative (NEGATIVE) Urine RBC 1 /HPF (0-2/HPF) Urine WBC 4 /HPF (0-5/HPF) Urine Squamous Epithelial Cells Many /LPF (</=FEW) Urine Bacteria Many /HPF (NONE-FEW) Urine Mucus None /HPF (NONE-FEW) ED Course/Re-evaluation ED Course 38 year old female presents with symptoms similar to colitis one month ago which was at that time successfully treated with a 5 day course of Cipro and Flagyl. As abdominal exam is benign and she has no leukocytosis, I offered a couple options including imaging, though with the risk that she has had multiple prior images, presumptive treatment, with the risk of affects of the antibiotics, versus waiting for consult with her surgeon who is currently in surgery. Patient elected to take your and biotics and follow-up with her surgeon which is a reasonable plan. We'll discharge with strict return precautions. Decision to Disposition Date: Oct 22, 2018 Decision to Disposition Time: 16:26 Depart Departure Latest Vital Signs Vital Signs Date Time Temp Pulse Resp B/P (MAP) Pulse Ox O2 Delivery O2 Flow Rate FiO2 10/22/18 14:31 98.6 105 16 146/113 97 Room Air Impression: Primary Impression: Colitis Condition: Improved Disposition: HOME OR SELF-CARE Referrals: LAMBERTO ANGUIANO DO (PCP) 5 Days VILMA ROWAN MD 2 Days New Scripts Metronidazole (FLAGYL) 500 Mg Tablet 500 MG PO BID for 10 Days, #20 TAB Prov: MOE PETERSON MD 10/22/18 Ciprofloxacin 500 Mg Tab (CIPROFLOXACIN 500 MG TAB) 500 Mg Tablet 500 MG PO Q12H for 10 Days, #20 TAB Prov: MOE PETERSON MD 10/22/18 Patient Instructions: Colitis (ED) Additional Instructions: As we discussed, your elected to take antibiotics. We discussed the potential interactions with her other medications. Please return for any concerns including uncontrolled pain, medication interactions or worsening symptoms. You will follow up with Dr. Prieto in 2-3 days for reevaluation. MOE PETERSON MD Oct 22, 2018 15:15
[2018-10-22 15:30] LABS: PLATELET COUNT, AUTOMATED 305 K/uL (150-450)
[2018-10-22] MEDS ORDERED: ONDANSETRON 4 MG/2 ML VIAL IVP ONE (15:45)
[2018-10-22 16:00] VITALS: BP 111/71
[2018-10-22] MEDS ORDERED: METRONIDAZOLE 500 MG TABLET PO ONE (16:25)
[2018-10-22] MEDS ORDERED: CIPROFLOXACIN 500 MG TAB PO ONE (16:25)
[2018-10-22] MEDS ORDERED: FLUCONAZOLE 150 MG TAB PO ONE (16:25)
[2018-10-22] MEDS ORDERED: METR-1 PO (16:29)
[2018-10-22] MEDS ORDERED: CIPR-214 PO (16:29)
[2018-10-22] MEDS ORDERED: HEPARIN FLSH (PORT) 500 UN/5ML IVP ONE (16:40)
== END 2018-10-22 16:59 | disposition home or self-care (01) ==
LOC: ER 14:49
DX: K52.9 Noninfective gastroenteritis and colitis, unspecified (principal)
CPT/HCPCS: 81001; 83690; 85025; 96361; 96374; 99284; A9270; J1642; J2405; J7030; 82040; 82247; 82310; 82374; 82435; 82565; 82947; 84075; 84132; 84155; 84295; 84450; 84460; 84520

== ENCOUNTER 2018-11-04 01:52 | Day surgery (SDC) | payer MEDICARE, MEDICAID ==
[~2018-11-04] VITALS: Ht 165.1 cm; Wt 82.6 kg
[~2018-11-04 01:52] MED LIST changes: +CIPR-214 PO; +OXYC-865 PO
[2018-11-04] MEDS ORDERED: LIDOCAINE MPF 1% 5 ML VIAL ONE (07:08)
[2018-11-04] MEDS ORDERED: PROPOFOL EMUL(*) 10MG/ML 20 ML 60 ML ONE (07:08)
[2018-11-04 08:34] VITALS: BP 117/77
[2018-11-04 10:46] VITALS: BP 115/71
[2018-11-04] MEDS ORDERED: FLUC200T56 PO (10:59)
[2018-11-04 11:00] VITALS: BP 114/73
--- NOTE | 2018-11-04 11:10 | NUR ---
1046 SBAR REPORT WAS RECEIVED FROM DR. CASTELLANOS AND MAGDALENO CORRIGAN. PATIENTS LUNGS ARE CLEAR. SHE ARRIVED ON 8 LITERS OXYMASK WHICH WAS TURNED DOWN TO 3 LITERS ON ARRIVAL. PATIENT IS DROWSY BUT IS AROUSABLE. BOWEL SOUNDS ARE HYPERACTIVE. SHE DENIES ANY PAIN OR NAUSEA. SHE IS IN A LEFT LATERAL POSITION. 1055 PATIENT IS WAKING UP MORE AND O2 WAS REMOVED 1106 PATIENT BEGAN EATING ICE CHIPS AND IS TOLERATING THIS WELL.
--- NOTE | 2018-11-04 11:10 | Short(Outpt) Discharge Summary ---
Discharge Summary Reason for Hosp/Final Diag: (1) Colitis Status: Acute Hospital Course & Plan: Colonoscopy with biopsies completed without problems. (2) Abdominal pain Status: Chronic (3) Diarrhea Status: Chronic Departure Discharge to: Home, Self Care ( ) Discharge Instructions Home Meds Active Scripts Fluconazole (FLUCONAZOLE) 200 Mg Tablet, 1 TAB PO QDAY, #7 TAB 0 Refills Prov:VILMA ROWAN MD 11/04/18 Metronidazole (FLAGYL) 500 Mg Tablet, 500 MG PO BID for 10 Days, #20 TAB Prov:MOE PETERSON MD 10/22/18 Ciprofloxacin 500 Mg Tab (CIPROFLOXACIN 500 MG TAB) 500 Mg Tablet, 500 MG PO Q12H for 10 Days, #20 TAB Prov:MOE PETERSON MD 10/22/18 Meclizine Hcl (MECLIZINE HCL) 25 Mg Tablet, 1 TAB PO BID, #60 TAB 3 Refills Prov:VILMA ROWAN MD 09/21/18 Promethazine Hcl (PROMETHAZINE HCL) 25 Mg Tablet, 1 TAB PO Q8H PRN for NAUSEA/VO MITING, #30 TAB 3 Refills Prov:VILMA ROWAN MD 09/16/18 Calcitriol (CALCITRIOL) 0.5 Mcg Capsule, 2 CAP PO QDAY, #60 CAPSULE 3 Refills Prov:VILMA ROWAN MD 09/14/18 Omeprazole (OMEPRAZOLE) 40 Mg Capsule., 1 CAP PO BID, #60 CAP 3 Refills Prov:VILMA ROWAN MD 08/28/18 Ranitidine Hcl (RANITIDINE HCL) 150 Mg Capsule, 1 CAP PO BID, #60 CAPSULE 6 Refills Prov:VILMA ROWAN MD 08/19/18 Lipase/Protease/Amylase (CREON 36,000 UNITS CAPSULE) 1 Each Capsule.dr, 1 CAP PO QID, #120 CAP 6 Refills Take 1 capsule before meals, 4 times every day Prov:VILMA ROWAN MD 08/14/18 Dicyclomine Hcl (DICYCLOMINE HCL) 20 Mg Tablet, 1 TAB PO BID, #60 TAB 6 Refills Prov:VILMA ROWAN MD 06/09/18 Diphenoxylate Hcl/Atropine (LOMOTIL TABLET) 1 Each Tablet, 1-2 TAB PO QID PRN for DIARRHEA, #60 TAB 3 Refills Prov:VILMA ROWAN MD 04/06/18 Ondansetron (ONDANSETRON ODT) 8 Mg Tab.rapdis, 1 TAB PO BID PRN for NAUSEA/VOMITING, #30 TAB 3 Refills Prov:VILMA ROWAN MD 03/28/18 Cholestyramine (With Sugar) (CHOLESTYRAMINE PACKET) 4 Gm Powd.pack, 1 PACK PO QDAY, #90 PACK 6 Refills Prov:VILMA ROWAN MD 01/26/18 Glycopyrrolate (GLYCOPYRROLATE) 1 Mg Tablet, 0.5 TAB PO QDAY, #30 TAB 3 Refills Prov:VILMA ROWAN MD 01/26/18 Reported Medications Oxycodone Hcl/Acetaminophen (PERCOCET 5-325 MG TABLET) 1 Each Tablet, 1 EACH PO, TAB 10/22/18 Pramipexole Di-Hcl (MIRAPEX) 0.125 Mg Tablet, 3 TAB PO QHS 06/23/18 Pyridoxine Hcl (VITAMIN B-6) 25 Mg Tablet, 25 MG PO DAILY 06/23/18 [Clindamycin] No Conflict Check, 1 SCOTT TOP QDAY 06/02/18 Lamotrigine (LAMOTRIGINE) 150 Mg Tablet, 150 MG PO BID 12/22/17 Acetaminophen 500 Mg Tab (ACETAMINOPHEN EXTRA STRENGTH) 500 Mg Tablet, 500 MG PO PRN PRN for PAIN, TAB 12/22/17 Levothyroxine Sodium (LEVOTHYROXINE SODIUM) 75 Mcg Tablet, 50 MCG PO QDAY, TAB 12/12/17 [place] Carbonate (LITHIUM CARBONATE) 300 Mg Cap, 3 CAP PO HS, CAP 10/30/17 Minocycline Hcl (MINOCYCLINE HCL) 100 Mg Tablet, 1 TAB PO BID, CAPSULE 10/30/17 Clonazepam (CLONAZEPAM) 2 Mg Tab.rapdis, 1-3 TAB PO QHS, #6 TAB 10/30/17 Carvedilol (CARVEDILOL) 12.5 Mg Tablet, 12.5 MG PO BID, #10 TAB 09/17/17 Perphenazine (PERPHENAZINE) 8 Mg Tablet, 4 MG PO BID 03/30/17 Losartan Potassium (LOSARTAN POTASSIUM) 50 Mg Tablet, 1 TAB PO HS 03/30/17 Fluvoxamine Maleate (FLUVOXAMINE MALEATE) 50 Mg Tablet, 50 MG PO HS 07/20/15 Diet: Regular Activity: As Tolerated Special Instructions: Your colonoscopy was completed without problems. I didn't find any obvious inflammation or other abnormalities but I took biopsies throughout your colon to look for microscopic colitis. You may resume your immodium and lomotil today and if you're still having diarrhea problems in a week you can restart the creon and see if this helps your symptoms. I am prescribing diflucan (fluconazole) which is an antifungal to treat your yeast infection and you should take 1 tablet every day for 7 days until you run out of the medication. My office will call you in the next couple of days to schedule a follow up appointment with me in my office in the next couple of weeks. Problem Qualifiers (1) Abdominal pain: Abdominal location: generalized Qualified Codes: R10.84 - Generalized abdominal pain (2) Diarrhea: Diarrhea type: functional diarrhea Qualified Codes: K59.1 - Functional diarrhea VILMA ROWAN MD Nov 04, 2018 11:10
[2018-11-04 11:25] VITALS: BP 107/81
[2018-11-04 11:26] VITALS: BP 110/77
[2018-11-04] MEDS ORDERED: LIDOCAINE/SOD BICARB 8.4% SYR ID ONE (11:30)
[2018-11-04] MEDS ORDERED: NORMOSOL R SOLN(*) 1000 ML BAG 1,000 ML IV PRN (11:30)
--- NOTE | 2018-11-04 11:50 | NUR ---
1122 WENT OVER DC INSTRUCTIONS WITH PATIENT AND HER MOM. THEY VERBALIZED UNDERSTANDING. 1125 BEGAN DOING ORTHOSTATICS WITH PATIENT. SHE DENIES ANY DIZZINESS OR LIGHTHEADEDNESS 1126 PATIENT WAS STABLE ON HIS FEET [address] ROWAN'S OFFICE CAME OVER TO DE-ACCESS PORT. PORT WAS SALINE FLUSHED AND HEPARIN LOCKED. PORT WAS DC'D AND PRIMAPORE DRESSING WAS PLACED OVER THE PORT SITE. 1145 PATIENT FINISHED GETTING DRESSED. 1150 PATIENT WAS DC'D. SHE WAS AMBULATORY ON DISCHARGE. LUNGS ARE CLEAR. BOWEL SOUNDS ARE HYPERACTIVE. SHE DENIES ANY PAIN OR NAUSEA. SEE DISCHARGE ASSESSMENT.
[2018-11-04] MEDS ORDERED: PROM-110 PO (19:57)
== END 2018-11-04 11:50 | disposition home or self-care (01) ==
LOC: OR 01:52
PROVIDERS: ATTEND Surgery
DX: R19.7 Diarrhea, unspecified (principal); K52.9 Noninfective gastroenteritis and colitis, unspecified
CPT/HCPCS: 00811; 45380; 88305; J2001; J2704

== ENCOUNTER 2018-11-26 12:17 | Emergency (ER) | payer MEDICARE, MEDICAID ==
[~2018-11-26 12:17] MED LIST changes: +FLUC200T56 PO
--- NOTE | 2018-11-26 12:27 | ER Report ---
History and Physical Time Seen By MD: 12:25 HPI/ROS CHIEF COMPLAINT: Fall HISTORY OF PRESENT ILLNESS: 38 yo female presents to the ED after a fall. States that she tripped on the sidewalk, fell and hit her face on the pavement. She denies neck or head pain but reports pain to her two front teeth and upper lip. Reports that her vision seems "fuzzy" which she states is new but she has not been wearing her glasses because they "do not fit her face.' Reports tenderness to her hands and her left knee where she "scraped them on the pavement.' States that she has nausea however reports that this is a chronic problem in which she gets treated for on a regular basis. Denies headache, chest pain or shortness of breath. Reports chronic low back pain and this pain has not changed or worsened since her fall. REVIEW OF SYSTEMS: Constitutional: No fever, no chills. Eyes: As above. ENT: No sore throat. Cardiovascular: As above. Respiratory: As above. Gastrointestinal: No abdominal pain, no vomiting. Genitourinary: No hematuria. Musculoskeletal: As above. Skin: No rashes. Neurological: As above. Allergies: Coded Allergies: desvenlafaxine (Verified Allergy, Intermediate, EXTREMELY DROWSY, 11/26/18) risperidone (Verified Allergy, Intermediate, EXTREMELY DROWSY, 11/26/18) aripiprazole (Verified Allergy, Unknown, FACIAL AND NECK SWELLING, 11/26/18) asenapine (Verified Allergy, Unknown, NUMB TONGUE, 11/26/18) gabapentin (Verified Allergy, Unknown, MANIC, 11/26/18) hydralazine (Verified Allergy, Unknown, 11/26/18) paliperidone (Verified Allergy, Unknown, SLEEPS TOO MUCH, 11/26/18) quetiapine (Verified Allergy, Unknown, EXCESSIVE EATING, 11/26/18) sertraline (Verified Allergy, Unknown, 11/26/18) ziprasidone (Verified Allergy, Unknown, EXCESSIVE SLEEPING, 11/26/18) vortioxetine (Unverified Adverse Reaction, Intermediate, 11/26/18) Rash scopolamine (Verified Adverse Reaction, Unknown, blister, 11/26/18) Home Meds Active Scripts Promethazine Hcl (PROMETHAZINE HCL) 25 Mg Tablet, 1 TAB PO Q8H PRN for NA USEA/VOMITING, #30 TAB 3 Refills Prov:VILMA ROWAN MD 11/04/18 Fluconazole (FLUCONAZOLE) 200 Mg Tablet, 1 TAB PO QDAY, #7 TAB 0 Refills Prov:VILMA ROWAN MD 11/04/18 Metronidazole (FLAGYL) 500 Mg Tablet, 500 MG PO BID for 10 Days, #20 TAB Prov:MOE PETERSON MD 10/22/18 Ciprofloxacin 500 Mg Tab (CIPROFLOXACIN 500 MG TAB) 500 Mg Tablet, 500 MG PO Q12H for 10 Days, #20 TAB Prov:MOE PETERSON MD 10/22/18 Meclizine Hcl (MECLIZINE HCL) 25 Mg Tablet, 1 TAB PO BID, #60 TAB 3 Refills Prov:VILMA ROWAN MD 09/21/18 Calcitriol (CALCITRIOL) 0.5 Mcg Capsule, 2 CAP PO QDAY, #60 CAPSULE 3 Refills Prov:VILMA ROWAN MD 09/14/18 Omeprazole (OMEPRAZOLE) 40 Mg Capsule., 1 CAP PO BID, #60 CAP 3 Refills Prov:VILMA ROWAN MD 08/28/18 Ranitidine Hcl (RANITIDINE HCL) 150 Mg Capsule, 1 CAP PO BID, #60 CAPSULE 6 Refills Prov:VILMA ROWAN MD 08/19/18 Lipase/Protease/Amylase (CREON 36,000 UNITS CAPSULE) 1 Each Capsule.dr, 1 CAP PO QID, #120 CAP 6 Refills Take 1 capsule before meals, 4 times every day Prov:VILMA ROWAN MD 08/14/18 Dicyclomine Hcl (DICYCLOMINE HCL) 20 Mg Tablet, 1 TAB PO BID, #60 TAB 6 Refills Prov:VILMA ROWAN MD 06/09/18 Diphenoxylate Hcl/Atropine (LOMOTIL TABLET) 1 Each Tablet, 1-2 TAB PO QID PRN for DIARRHEA, #60 TAB 3 Refills Prov:VILMA ROWAN MD 04/06/18 Ondansetron (ONDANSETRON ODT) 8 Mg Tab.rapdis, 1 TAB PO BID PRN for NAUSEA/VOMITING, #30 TAB 3 Refills Prov:VILMA ROWAN MD 03/28/18 Cholestyramine (With Sugar) (CHOLESTYRAMINE PACKET) 4 Gm Powd.pack, 1 PACK PO QDAY, #90 PACK 6 Refills Prov:VILMA ROWAN MD 01/26/18 Glycopyrrolate (GLYCOPYRROLATE) 1 Mg Tablet, 0.5 TAB PO QDAY, #30 TAB 3 Refills Prov:VILMA ROWAN MD 01/26/18 Reported Medications Oxycodone Hcl/Acetaminophen (PERCOCET 5-325 MG TABLET) 1 Each Tablet, 1 EACH PO, TAB 10/22/18 Pramipexole Di-Hcl (MIRAPEX) 0.125 Mg Tablet, 3 TAB PO QHS 06/23/18 Pyridoxine Hcl (VITAMIN B-6) 25 Mg Tablet, 25 MG PO DAILY 06/23/18 [Clindamycin] No Conflict Check, 1 SCOTT TOP QDAY 06/02/18 Lamotrigine (LAMOTRIGINE) 150 Mg Tablet, 150 MG PO BID 12/22/17 Acetaminophen 500 Mg Tab (ACETAMINOPHEN EXTRA STRENGTH) 500 Mg Tablet, 500 MG PO PRN PRN for PAIN, TAB 12/22/17 Levothyroxine Sodium (LEVOTHYROXINE SODIUM) 75 Mcg Tablet, 50 MCG PO QDAY, TAB 12/12/17 [place] Carbonate (LITHIUM CARBONATE) 300 Mg Cap, 3 CAP PO HS, CAP 10/30/17 Minocycline Hcl (MINOCYCLINE HCL) 100 Mg Tablet, 1 TAB PO BID, CAPSULE 10/30/17 Clonazepam (CLONAZEPAM) 2 Mg Tab.rapdis, 1-3 TAB PO QHS, #6 TAB 10/30/17 Carvedilol (CARVEDILOL) 12.5 Mg Tablet, 12.5 MG PO BID, #10 TAB 09/17/17 Perphenazine (PERPHENAZINE) 8 Mg Tablet, 4 MG PO BID 03/30/17 Losartan Potassium (LOSARTAN POTASSIUM) 50 Mg Tablet, 1 TAB PO HS 03/30/17 Fluvoxamine Maleate (FLUVOXAMINE MALEATE) 50 Mg Tablet, 50 MG PO HS 07/20/15 Past Medical/Surgical History The patient has a past medical and surgical history of seizures as a baby, hypertension, questionable gastric,, IBS, colitis, pancreatitis, GERD, PKD, hip pain, low back pain, parathyroid tumors, multiple endocrine aplasia, parathyroidectomy, colitis, PTSD, bipolar, situational depression, 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 Breast augmentation. Reviewed Nurses Notes: Yes Hx Smoking: No (OCCASIONAL SMOKING ) Smoking Status: Former Smoker, Current: Some Days Smoker Exposure to Second Hand Smoke?: Yes ( IS SMOKER ) Hx Substance Use Disorder: No Hx Alcohol Use: Yes Constitutional Vital Sign - Last 24 Hours 11/26/18 11/26/18 11/26/18 11/26/18 12:18 12:22 12:32 12:40 Temp 98.5 Pulse 101 89 Resp 20 16 B/P (MAP) 133/88 133/88 (103) 134/101 (112) Pulse Ox 96 92 O2 Delivery Room Air 11/26/18 11/26/18 11/26/18 11/26/18 12:47 13:00 13:17 13:20 Pulse 90 83 Resp 17 B/P (MAP) 136/96 (109) 127/87 (100) Pulse Ox 93 94 11/26/18 11/26/18 11/26/18 11/26/18 13:32 13:52 14:00 14:05 Pulse 80 78 82 B/P (MAP) 118/80 (93) Pulse Ox 100 95 91 11/26/18 11/26/18 11/26/18 11/26/18 14:20 14:35 14:40 15:00 Pulse 82 B/P (MAP) 120/83 (95) 122/87 (99) 115/86 (96) Pulse Ox 99 11/26/18 15:05 Pulse 80 Pulse Ox 96 Physical Exam General Appearance: The patient is alert, has no immediate need for airway protection and no signs of toxicity. Eyes: Pupils equal and round no pallor or injection. ENT, Mouth: Swelling and abrasion to upper lip, possible chip to left lateral incisor. Respiratory: There are no retractions, lungs are clear to auscultation. Cardiovascular: Regular rate and rhythm, no murmurs, clicks, rubs. Gastrointestinal: Abdomen is soft and non tender, no masses, bowel sounds norm al. Neurological: AAOx4, Cranial nerves II - VIII intact. Skin: Abrasions to bilateral palms and to right knee. Musculoskeletal: Neck is supple non tender. Extremities are nontender, nonswollen and have full range of motion. DIFFERENTIAL DIAGNOSIS: After history and physical exam differential diagnosis was considered for C-spine fracture, cervical neck strain, lafort fracture, intracranial bleed, skull fracture, dental trauma. Medical Decision Making EKG/Imaging Imaging Location: [facility] Patient: Kriss Azevedo : 1980 Visit/Account:[id number] Date of Sevice: 11/26/2018 EXAMINATION: CT head without IV contrast CT facial bones without IV contrast HISTORY: Fall. TECHNIQUE: Axial CT images of the head were obtained from the vertex to the skull base without IV contrast, with coronal and sagittal 2D reconstructed images. Thin axial CT images of the facial bones were obtained without IV contrast, from the superior orbit through the mandible, with 2D coronal and sagittal reconstructed images. One of the following dose optimization techniques was utilized in the performance of this exam: Automated exposure control; adjustment of the mA and /or kV according to the patient's size; or use of an iterative reconstruction technique. Specific details can be referenced in the facility's radiology CT exam operational policy. COMPARISON: CTA head 01/27/2017. FINDINGS: CT Head: The intracranial contents are unremarkable. No CT evidence of intracranial hemorrhage, mass lesion, or acute infarct. No midline shift or extra-axial fluid collections. Caldera-white differentiation is maintained. The calvarium is intact. CT Facial Bones: No CT evidence of facial fracture. The bilateral nasal bones and bony orbits are intact. The zygomatic arches and pterygoid plates are unremarkable. The maxilla and mandible are intact, with normal alignment at the temporomandibular joints. There has been prior chin augmentation surgery with a low attenuation implant overlying the anterior body of the mandible. The paranasal sinuses and mastoid air cells are unopacified. The skull base is intact. IMPRESSION: 1. No evidence of intracranial hemorrhage or skull fracture. 2. No evidence of facial fracture. Report Dictated By: Nabil Feliciano MD at 11/26/2018 1:51 PM Report E-Signed By: Nabil Feliciano MD at 11/26/2018 2:15 PM WSN:[id number] Location: [facility] Patient: Kriss Azevedo : 1980 Visit/Account:[id number] Date of Sevice: 11/26/2018 EXAMINATION: CT cervical spine without IV contrast HISTORY: Fall. TECHNIQUE: Thin axial CT images of the cervical spine were obtained without IV contrast, with sagittal and coronal 2D reconstructed images. One of the following dose optimization techniques was utilized in the performance of this exam: Automated exposure control; adjustment of the mA and/or kV according to the patient's size; or use of an iterative reconstruction technique. Specific details can be referenced in the facility's radiology CT exam operational policy. COMPARISON: None. FINDINGS: The cervical spine is negative for acute fracture or subluxation. Normal alignment. Vertebral body height is maintained. Mild chronic spondylotic changes along the cervical spine. There is mild disc space narrowing at C5-C6 with mild endplate osteophyte formation. Disc spaces are otherwise preserved. The dens is intact. Normal alignment at the craniocervical junction. IMPRESSION: 1. No acute osseous findings along the cervical spine. 2. Mild chronic degenerative changes at the C5-C6 disc space. Report Dictated By: Nabil Feliciano MD at 11/26/2018 2:15 PM Report E-Signed By: Nabil Feliciano MD at 11/26/2018 2:17 PM WSN:[id number] ED Course/Re-evaluation Clinical Indication for ER IV: Hydration, IV Access ED Course The patient was admitted to room. A history of physical were obtained. Differential diagnoses were considered. A CT of the head neck and facial bones were negative for any acute abnormalities. This was reviewed with patient. She was given a list of local dentists should her dental pain continue. There are no obvious dental injuries or trauma to the teeth. Patient has a history of chronic nausea, she was given 1 L of normal saline as well as 4 mg IV Zofran. The patien t's port was accessed, patient discharged home, started follow-up with her primary care provider within one week for reevaluation. Return to ER for any other concerns. Patient was agreeable with this plan care and discharged home. Patient has also recently started using CBD oil. I agree with JESSICA Lawson students assessment and plan, I did did assess patient myself. JESSICA Pathak. Decision to Disposition Date: Nov 26, 2018 Decision to Disposition Time: 14:59 Depart Departure Latest Vital Signs Vital Signs Date Time Temp Pulse Resp B/P (MAP) Pulse Ox O2 Delivery O2 Flow Rate FiO2 11/26/18 15:05 80 96 11/26/18 15:00 115/86 (96) 11/26/18 12:47 17 11/26/18 12:18 98.5 Room Air Impression: Primary Impression: Fall Additional Impression: Facial injury Condition: Improved Disposition: HOME OR SELF-CARE Referrals: LAMBERTO ANGUIANO DO (PCP) 1 Week Patient Instructions: Abrasion (ED), Facial Contusion (ED) Additional Instructions: Use Tylenol or ibuprofen for pain as needed. Continue to ice to areas with swelling. Apply bacitracin to abrasions.Follow up with dentist within 1 week if you experience continued dental pain. Follow up with PCP within 1 week. Return to ED for worsening symptoms. Problem Qualifiers Primary Impression: Fall Encounter type: initial encounter Qualified Codes: W19.XXXA - Unspecified fall, initial encounter Additional Impression: Facial injury Encounter type: initial encounter Qualified Codes: S09.93XA - Unspecified injury of face, initial encounter QUINTON MONTALVO MARINE PROPULSION TECHNICIAN-BC Nov 26, 2018 12:27
[2018-11-26] MEDS ORDERED: ONDANSETRON 4 MG/2 ML VIAL IVP ONE (12:55)
[2018-11-26] MEDS ORDERED: NS(*) 0.9% 1000 ML BAG 1,000 ML IV ONE (12:55)
--- NOTE | 2018-11-26 14:19 | RADIOLOGY IMAGING REPORT ---
FACILITY: [facility] [place] PATIENT NAME: Kriss Azevedo : 1980 MR: [id number] V: [id number] EXAM DATE: ORDERING PHYSICIAN: QUINTON MONTLAVO TECHNOLOGIST: Location: [facility] Patient: Kriss Azevedo : 1980 Visit/Account:[id number] Date of Sevice: 11/26/2018 EXAMINATION: CT head without IV contrast CT facial bones without IV contrast HISTORY: Fall. TECHNIQUE: Axial CT images of the head were obtained from the vertex to the skull base without IV c ontrast, with coronal and sagittal 2D reconstructed images. Thin axial CT images of the facial bones were obtained without IV contrast, from the superior orbit through the mandible, with 2D coronal and sagittal reconstructed images. One of the following dose optimization techniques was utilized in the performance of this exam: Autom ated exposure control; adjustment of the mA and/or kV according to the patient's size; or use of an i terative reconstruction technique. Specific details can be referenced in the facility's radiology C T exam operational policy. COMPARISON: CTA head 01/27/2017. FINDINGS: CT Head: The intracranial contents are unremarkable. No CT evidence of intracranial hemorrhage, mass lesion, or acute infarct. No midline shift or extra-axial fluid collections. Caldera-white differentiation is maintained. The calvarium is intact. CT Facial Bones: No CT evidence of facial fracture. The bilateral nasal bones and bony orbits are intact. The zygomati c arches and pterygoid plates are unremarkable. The maxilla and mandible are intact, with normal alig nment at the temporomandibular joints. There has been prior chin augmentation surgery with a low atte nuation implant overlying the anterior body of the mandible. The paranasal sinuses and mastoid air cells are unopacified. The skull base is intact. IMPRESSION: 1. No evidence of intracranial hemorrhage or skull fracture. 2. No evidence of facial fracture. Report Dictated By: Nabil Feliciano MD at 11/26/2018 1:51 PM Report E-Signed By: Nabil Feliciano MD at 11/26/2018 2:15 PM WSN:[id number]
--- NOTE | 2018-11-26 14:20 | RADIOLOGY IMAGING REPORT ---
[place] [facility] Kriss Azevedo : 1980 MR: [id number] V: [id number] EXAM DATE: ORDERING PHYSICIAN: QUINTON MONTALVO TECHNOLOGIST: Location: [facility] Patient: Kriss Azevedo : 1980 Visit/Account:[id number] Date of Sevice: 11/26/2018 EXAMINATION: CT cervical spine without IV contrast HISTORY: Fall. TECHNIQUE: Thin axial CT images of the cervical spine were obtained without IV contrast, with sagit celestino and coronal 2D reconstructed images. One of the following dose optimization techniques was utilized in the performance of this exam: Autom ated exposure control; adjustment of the mA and/or kV according to the patient's size; or use of an i terative reconstruction technique. Specific details can be referenced in the facility's radiology C T exam operational policy. COMPARISON: None. FINDINGS: The cervical spine is negative for acute fracture or subluxation. Normal alignment. Vertebral body he ight is maintained. Mild chronic spondylotic changes along the cervical spine. There is mild disc space narrowing at C5-C 6 with mild endplate osteophyte formation. Disc spaces are otherwise preserved. The dens is intact. Normal alignment at the craniocervical junction. IMPRESSION: 1. No acute osseous findings along the cervical spine. 2. Mild chronic degenerative changes at the C5-C6 disc space. Report Dictated By: Nabil Feliciano MD at 11/26/2018 2:15 PM Report E-Signed By: Nabil Feliciano MD at 11/26/2018 2:17 PM WSN:[id number]
--- NOTE | 2018-11-26 14:20 | RADIOLOGY IMAGING REPORT ---
FACILITY: [facility] PATIENT NAME: Kriss Azevedo : 1980 MR: [id number] V: [id number] EXAM DATE: ORDERING PHYSICIAN: QUINTON MNOTALVO TECHNOLOGIST: Location: [facility] Patient: Kriss Azevedo : 1980 Visit/Account:[id number] Date of Sevice: 11/26/2018 EXAMINATION: CT head without IV contrast CT facial bones without IV contrast HISTORY: Fall. TECHNIQUE: Axial CT images of the head were obtained from the vertex to the skull base without IV c ontrast, with coronal and sagittal 2D reconstructed images. Thin axial CT images of the facial bones were obtained without IV contrast, from the superior orbit through the mandible, with 2D coronal and sagittal reconstructed images. One of the following dose optimization techniques was utilized in the performance of this exam: Autom ated exposure control; adjustment of the mA and/or kV according to the patient's size; or use of an i terative reconstruction technique. Specific details can be referenced in the facility's radiology C T exam operational policy. COMPARISON: CTA head 01/27/2017. FINDINGS: CT Head: The intracranial contents are unremarkable. No CT evidence of intracranial hemorrhage, mass lesion, or acute infarct. No midline shift or extra-axial fluid collections. Caldera-white differentiation is maintained. The calvarium is intact. CT Facial Bones: No CT evidence of facial fracture. The bilateral nasal bones and bony orbits are intact. The zygomati c arches and pterygoid plates are unremarkable. The maxilla and mandible are intact, with normal alig nment at the temporomandibular joints. There has been prior chin augmentation surgery with a low atte nuation implant overlying the anterior body of the mandible. The paranasal sinuses and mastoid air cells are unopacified. The skull base is intact. IMPRESSION: 1. No evidence of intracranial hemorrhage or skull fracture. 2. No evidence of facial fracture. Report Dictated By: Nabil Feliciano MD at 11/26/2018 1:51 PM Report E-Signed By: Nabil Feliciano MD at 11/26/2018 2:15 PM WSN:[id number]
[2018-11-26 15:00] VITALS: BP 115/86
[2018-11-26] MEDS ORDERED: HEPARIN IVP ONE (15:15)
== END 2018-11-26 15:35 | disposition home or self-care (01) ==
LOC: ER 12:36
DX: S09.93XA Unspecified injury of face, initial encounter (principal); K08.89 Other specified disorders of teeth and supporting structures; W01.198A Fall on same level from slipping, tripping and stumbling with subsequent striking against other object, initial encounter
CPT/HCPCS: 70450; 70486; 72125; 96361; 96374; 96375; 99284; J2405; J7030

== ENCOUNTER → 2018-12-16 | Outpatient (CLI) | payer MEDICARE, MEDICAID ==
[~2018-12-16] MED LIST changes: +CAR6.25 PO
== END ==
LOC: LAB 08:39
PROVIDERS: ATTEND Surgery
DX: Q61.3 Polycystic kidney, unspecified (principal); R74.8 Abnormal levels of other serum enzymes; I10 Essential (primary) hypertension; E78.5 Hyperlipidemia, unspecified; R79.89 Other specified abnormal findings of blood chemistry; E55.9 Vitamin D deficiency, unspecified; N18.3 Chronic kidney disease, stage 3 (moderate)
CPT/HCPCS: 36415; 82103; 82306; 82390; 82607; 82728; 83540; 83550; 86038; 86706; 86707; 87340; 87350; G0472; 82465; 83718; 84478; 86803

== ENCOUNTER → 2018-12-23 | Outpatient (CLI) | payer MEDICARE ==
[~2018-12-23] MED LIST changes: +CYA1000 PO
== END ==
LOC: LAB 16:55
PROVIDERS: ATTEND Surgery
DX: D22.9 Melanocytic nevi, unspecified (principal)
CPT/HCPCS: 88305

== ENCOUNTER → 2018-12-23 | Outpatient (CLI) | payer MEDICARE | LOC: LAB 15:02 | PROVIDERS: ATTEND Emergency Medicine | DX: E83.00 Disorder of copper metabolism, unspecified (principal) | CPT/HCPCS: 36415 ==

== ENCOUNTER → 2018-12-27 | Outpatient (REF) | payer MEDICARE | LOC: ZZIMHLAB 03:40 | PROVIDERS: ATTEND Emergency Medicine | DX: E83.00 Disorder of copper metabolism, unspecified (principal) ==

== ENCOUNTER → 2019-02-04 | Outpatient (CLI) | payer MEDICARE ==
[2019-02-04 09:23] LABS: PLATELET COUNT, AUTOMATED 295 K/uL (150-450)
== END ==
LOC: LAB 08:41
PROVIDERS: ATTEND Surgery
DX: R79.89 Other specified abnormal findings of blood chemistry (principal); K52.9 Noninfective gastroenteritis and colitis, unspecified; N18.3 Chronic kidney disease, stage 3 (moderate); K86.89 Other specified diseases of pancreas; R74.8 Abnormal levels of other serum enzymes; E03.9 Hypothyroidism, unspecified; I10 Essential (primary) hypertension
CPT/HCPCS: 36415; 82040; 82247; 82248; 82306; 82310; 82374; 82435; 82565; 82947; 83690; 84075; 84132; 84155; 84295; 84443; 84450; 84460; 84520; 85025

== ENCOUNTER → 2019-02-09 | Outpatient (CLI) | payer MEDICARE ==
[~2019-02-09] MED LIST changes: +GADOBENATE 529MG/1ML 15ML VIAL IVP ONE; +HEPARIN FLSH (PORT) 500 UN/5ML ONE; +NS(*) 0.9% 50 ML BAG 50 ML ONE; -PROM12.556 PO; +PROM12.557 PO
--- NOTE | 2019-02-09 16:01 | RADIOLOGY IMAGING REPORT ---
FACILITY: [facility] - [place] PATIENT NAME: Kriss Azevedo : 1980 MR: [id number] V: [id number] EXAM DATE: ORDERING PHYSICIAN: VILMA ROWAN TECHNOLOGIST: Location: [facility] Patient: Kriss Azevedo : 1980 Visit/Account:[id number] Date of Sevice: 02/09/2019 MR ABDOMEN W & W/O CON HISTORY: Pancreatic lesion ADDITIONAL HISTORY: None. TECHNIQUE: TECHNIQUE: Multiplanar multisequence magnetic resonance imaging of the abdomen with and without intravenous contrast. CONTRAST: 15 mL of MultiHance COMPARISON: MR the abdomen January 07, [address] of abdomen and pelvis September 15, 2018 FINDINGS: Visualized lung bases: Small amount of scarring in the left lower lobe Liver: Again noted is hepatomegaly with the liver measuring 22.6 cm in length slightly increased from 20 cm on the previous MR. Hepatic steatosis again noted Gallbladder: Not visualized Bile ducts: Nondistended and unremarkable. Spleen: Enlarged measuring 15.4 cm in length slightly increased from 14.7 cm previously Adrenal glands: Negative. Pancreas: No demonstration of a pancreatic mass or peripancreatic inflammation Kidneys: Again noted are innumerable cysts throughout both kidneys which have increased in size and n umber since the prior MR. In the posterior aspect of the lower pole of the left kidney there is a 8 mm cortical mass that demonstrates increased T1 signal intensity decreased T2 signal intensity and ap pears to demonstrate a small amount of contrast enhancement on the postcontrast images evaluation is somewhat limited due to the extremely small size and presence of motion artifact. Vessels/spaces/nodes: No bulky adenopathy or ascities. Visualized GI: Grossly unremarkable. Bones/soft tissues: Unremarkable. IMPRESSION: There is no demonstration of a pancreatic mass or peripancreatic inflammation Hepatosplenomegaly which has slightly increased when compared to the prior MR. Hepatic steatosis Innumerable cysts are again seen throughout the kidneys. These have increased in size and number whe n compared to the prior MR although appears similar when compared to the recent CT scan. There is on e cortical mass projecting from the posterior lower pole the left kidney Measuring 8 mm in diameter. There may be a small amount of contrast enhancement associated with this mass although due to the extremely small size and motion artifact evaluation somewhat difficult. A follow-up MR or CT of the kidneys may be helpful six months depending upon the degree of clinical con cern Report Dictated By: Mei Carbone MD at 02/09/2019 2:52 PM Report E-Signed By: Mei Carbone MD at 02/09/2019 3:56 PM WSN:BENNIE
== END ==
LOC: MRI 00:31
PROVIDERS: ATTEND Surgery
DX: K86.9 Disease of pancreas, unspecified (principal)
CPT/HCPCS: 74183; A9577; J7050

== ENCOUNTER → 2019-04-05 | Outpatient (CLI) | payer MEDICARE ==
[~2019-04-05] MED LIST changes: -GADOBENATE 529MG/1ML 15ML VIAL IVP ONE; -HEPARIN FLSH (PORT) 500 UN/5ML ONE; +LOPE2CAP88 PO; -NS(*) 0.9% 50 ML BAG 50 ML ONE
[2019-04-05 14:27] LABS: PLATELET COUNT, AUTOMATED 272 K/uL (150-450)
== END ==
LOC: LAB 13:40
PROVIDERS: ATTEND Surgery
DX: R74.8 Abnormal levels of other serum enzymes (principal); I12.9 Hypertensive chronic kidney disease with stage 1 through stage 4 chronic kidney disease, or unspecified chronic kidney disease; N18.3 Chronic kidney disease, stage 3 (moderate); Q61.3 Polycystic kidney, unspecified
CPT/HCPCS: 36415; 82040; 82247; 82248; 82310; 82374; 82435; 82565; 82947; 84075; 84132; 84155; 84295; 84450; 84460; 84520; 85025

== ENCOUNTER → 2019-04-08 | Outpatient (CLI) | payer MEDICARE ==
[~2019-04-08] MED LIST changes: +ACET-2031 PO
== END ==
LOC: LAB 08:05
PROVIDERS: ATTEND Surgery
DX: N18.3 Chronic kidney disease, stage 3 (moderate) (principal); R74.8 Abnormal levels of other serum enzymes; Q61.3 Polycystic kidney, unspecified; R11.2 Nausea with vomiting, unspecified; K86.89 Other specified diseases of pancreas; E78.5 Hyperlipidemia, unspecified; R79.89 Other specified abnormal findings of blood chemistry; E21.3 Hyperparathyroidism, unspecified; F31.12 Bipolar disorder, current episode manic without psychotic features, moderate; R73.09 Other abnormal glucose
CPT/HCPCS: 36415; 82306; 82465; 83036; 83718; 84146; 84478

== ENCOUNTER 2019-04-09 14:53 | Observation (INO) | payer MEDICARE ==
[~2019-04-09] VITALS: Ht 160 cm; Wt 83.2 kg
[~2019-04-09 14:53] MED LIST changes: -ACET-2031 PO
[2019-04-09] MEDS ORDERED: LIDOCAINE/SOD BICARB 8.4% SYR ONE (15:00)
[2019-04-09] MEDS ORDERED: FLUSH 10 ML SYR IVP PRN (15:05)
[2019-04-09 15:07] VITALS: BP 130/75
--- NOTE | 2019-04-09 15:23 | Gen Surgery History & Physical ---
History of Present Illness Chief Complaint RUQ abdominal pain, N/V History of Present Illness 39-year-old, somewhat complex, patient with a history of bipolar disorder, chronic abdominal pain, chronic diarrhea, chronic nausea and vomiting presents to the clinic today with worsening and upper quadrant abdominal pain with nausea and vomiting and inability to eat or drink adequate amounts. We got a CT scan of her abdomen and pelvis today which was somewhat limited since her creatinine is 1.7 due to chronic renal insufficiency related to polycystic kidney disease and no obvious evidence of bowel inflammation was noted but there was question of possible infiltrative changes around the pancreatic head suspicious for possible pancreatitis and the terminal ileum was mildly dilated but without obvious inflammation or obstruction. Her symptoms started yesterday. She does have chronic intermittent abdominal pain but this is much worse than normal. She had an episode of colitis 8 months ago and she reports that this feels very similar to when she had colitis. She has had questionable episodes of pancreatitis in the past with lipase as high as 1000 and but an etiology was never definitively found. She does have bipolar disorder and has been on lithium for many years and her psychiatric provider is now titrating the lithium down with hopes of stopping it and replacing her psychiatric regimen with a non-lithium based regimen given her chronic GI symptoms and kidney dysfunction. She does have chronic diarrhea but this has been improving since the lithium has been decreasing and she is even tended towards constipation in the last week or 2 and so Lomotil and Imodium were stopped and dicyclomine is currently being titrated to off and in fact she has not had any dicyclomine today. She does report that her bowels seem to be working well currently without diarrhea or constipation. History Problems: (1) Hypertension Status: Chronic (2) CKD (chronic kidney disease) stage 3, GFR 30-59 ml/min Status: Chronic (3) Hypothyroidism Status: Chronic (4) GERD (gastroesophageal reflux disease) Status: Chronic (5) Bipolar 1 disorder with moderate kandis Status: Chronic (6) HUGH (obstructive sleep apnea) Status: Chronic (7) Polycystic kidney disease Status: Chronic (8) Fatty liver Status: Chronic (9) Hyperlipidemia Status: Chronic (10) Low vitamin D level Status: Chronic (11) Parathyroid adenoma Status: Resolved (12) Umbilical hernia Status: Chronic (13) Hyperparathyroidism *Optional Permanent Comment*: s/p parathyroidectomy Last Edited By: Ceci Dominguez MD on Nov 26, 2018 11:58 Status: Resolved Home Meds Active Scripts Loperamide Hcl (LOPERAMIDE) 2 Mg Capsule, 1 CAPSULE PO BID PRN for DIARRHEA, #60 CAPSULE 6 Refills Prov:VILMA ROWAN MD 04/07/19 Calcitriol (CALCITRIOL) 0.5 Mcg Capsule, 2 CAP PO QDAY, #60 CAPSULE 3 Refills Prov:VILMA ROWAN MD 04/07/19 Losartan Potassium (LOSARTAN POTASSIUM) 50 Mg Tablet, 1 TAB PO HS, #90 TAB 3 Refills Prov:CECI DOMINGUEZ MD 03/09/19 Pramipexole Di-Hcl (MIRAPEX) 0.125 Mg Tablet, 3 TAB PO QHS, #270 TAB 3 Refills Prov:CECI DOMINGUEZ MD 03/03/19 Ranitidine Hcl (RANITIDINE HCL) 150 Mg Capsule, 1 CAP PO BID, #60 CAPSULE 6 Re fills Prov:VILMA ROWAN MD 03/03/19 Ondansetron (ONDANSETRON ODT) 8 Mg Tab.rapdis, 1 TAB PO BID PRN for NAUSEA/VOMITING, #30 TAB 3 Refills Prov:VILMA ROWAN MD 01/04/19 Omeprazole (OMEPRAZOLE) 40 Mg Capsule.dr, 1 CAP PO BID, #90 CAP 6 Refills Prov:VILMA ROWAN MD 12/29/18 Dicyclomine Hcl (DICYCLOMINE HCL) 20 Mg Tablet, 40 MG PO BID, #60 TAB 6 Refills Prov:CECI DOMINGUEZ MD 12/09/18 Promethazine Hcl (PROMETHAZINE HCL) 25 Mg Tablet, 1 TAB PO Q8H PRN for NAUSEA/VOMITING, #30 TAB 3 Refills Prov:VILMA ROWAN MD 11/04/18 Glycopyrrolate (GLYCOPYRROLATE) 1 Mg Tablet, 0.5 TAB PO QDAY, #30 TAB 3 Refills Prov:VILMA ROWAN MD 01/26/18 Reported Medications Diphenoxylate Hcl/Atropine (LOMOTIL TABLET) 1 Each Tablet, 1-2 TAB PO PRN PRN for DIARRHEA, TAB 04/06/19 Lipase/Protease/Amylase (MELINDA MEEKS 36,000 UNITS CAPSULE) 1 Each Capsule.dr, 1 EACH PO ACHS 04/06/19 Cyanocobalamin (Vitamin B-12) (VITAMIN B-12) 1,000 Mcg Tablet, 1000 MCG PO DAILY 12/23/18 Levothyroxine Sodium (LEVOTHYROXINE SODIUM) 50 Mcg Tablet, 50 MCG PO QDAY, TAB 12/09/18 Carvedilol (CARVEDILOL) 6.25 Mg Tab, 6.25 MG PO BID, TAB 12/09/18 Pyridoxine Hcl (VITAMIN B-6) 25 Mg Tablet, 50 MG PO DAILY 06/23/18 [Clindamycin] No Conflict Check, 1 SCOTT TOP QDAY 06/02/18 Lamotrigine (LAMOTRIGINE) 150 Mg Tablet, 150 MG PO BID 12/22/17 Acetaminophen 500 Mg Tab (ACETAMINOPHEN EXTRA STRENGTH) 500 Mg Tablet, 500 MG PO PRN PRN for PAIN, TAB 12/22/17 Minocycline Hcl (MINOCYCLINE HCL) 100 Mg Tablet, 1 TAB PO BID, CAPSULE 10/30/17 Clonazepam (CLONAZEPAM) 2 Mg Tab.rapdis, 1-3 TAB PO QHS, #6 TAB 10/30/17 Perphenazine (PERPHENAZINE) 8 Mg Tablet, 4 MG PO BID 03/30/17 Fluvoxamine Maleate (FLUVOXAMINE MALEATE) 50 Mg Tablet, 50 MG PO HS 07/20/15 Discontinued Reported Medications Fieldon Carbonate (LITHIUM CARBONATE) 300 Mg Cap, 3 CAP PO HS, CAP 10/30/17 Discontinued Scripts Diphenoxylate Hcl/Atropine (LOMOTIL TABLET) 1 Each Tablet, 1-2 TAB PO QID PRN for DIARRHEA, #60 TAB 3 Refills Prov:VILMA ROWAN MD 12/28/18 Metronidazole (FLAGYL) 500 Mg Tablet, 500 MG PO BID for 10 Days, #20 TAB Prov:MOE PETERSON MD 10/22/18 Meclizine Hcl (MECLIZINE HCL) 25 Mg Tablet, 1 TAB PO BID, #60 TAB 3 Refills Prov:VILMA ROWAN MD 09/21/18 Lipase/Protease/Amylase (CREON 36,000 UNITS CAPSULE) 1 Each Capsule., 1 CAP PO QID, #120 CAP 6 Refills Take 1 capsule before meals, 4 times every day Prov:VILMA ROWAN MD 08/14/18 Allergies: Coded Allergies: desvenlafaxine (Verified Allergy, Intermediate, EXTREMELY DROWSY, 11/26/18) risperidone (Verified Allergy, Intermediate, EXTREMELY DROWSY, 11/26/18) aripiprazole (Verified Allergy, Unknown, FACIAL AND NECK SWELLING, 11/26/18) asenapine (Verified Allergy, Unknown, NUMB TONGUE, 11/26/18) gabapentin (Verified Allergy, Unknown, MANIC, 11/26/18) hydralazine (Verified Allergy, Unknown, 11/26/18) paliperidone (Verified Allergy, Unknown, SLEEPS TOO MUCH, 11/26/18) quetiapine (Verified Allergy, Unknown, EXCESSIVE EATING, 11/26/18) sertraline (Verified Allergy, Unknown, 11/26/18) ziprasidone (Verified Allergy, Unknown, EXCESSIVE SLEEPING, 11/26/18) vortioxetine (Unverified Adverse Reaction, Intermediate, 11/26/18) Rash scopolamine (Verified Adverse Reaction, Unknown, blister, 11/26/18) Patient History: FH polycystic kidney MOTHER, Age:58 FH: brain cancer Maternal Great Grandfather FH: breast cancer Maternal Great Grandmother FH: congestive heart failure Maternal Great Uncle FH: myocardial infarction Maternal Great Uncle FH: pancreatic cancer Maternal Great Uncle FH: prostate cancer Maternal Great Uncle FH: thyroid disease MOTHER, Age:58 Gout MOTHER, Age:58 High cholesterol MOTHER, Age:58 Review of Systems All Systems Reviewed/Normal: Yes, Except as Noted Gastrointestinal: Nausea, Vomiting, Abdominal Pain Exam General Appearance: Alert, Awake, No Acute Distress, Afebrile Neuro: Other (patient appears very uncomfortable) Eyes: PERRLA ENT: Normal Cardiovascular: Regular Rate and Rhythm Respiratory: Clear to Auscultation GI: Other (soft, right upper quadrant tenderness to palpation without palpable mass or bulge, no peritoneal signs) Extremities: Warm, Perfused Psych: Alert & Oriented X3, Appropriate Mood & Affect Assessment and Plan Problems: (1) Right upper quadrant abdominal pain Status: Acute Assessment & Plan: 04/09/19: Will admit for rehydration and continued workup. Will start bowel rest this afternoon and continue bowel rest until her symptoms improve. We'll use intermittent low dose narcotics for pain relief and Zofran for nausea relief. Will check labs including a CBC, BMP, LFTs, and lipase, especially given the questionable infiltrative changes around her pancreatic head. May require MRCP if lipase is elevated to get a better look at her pancreas since we can't really give her IV contrast with the CT scan due to her chronic renal insufficiency. I have explained this plan to her and her in great detail and they seem agreeable and willing to proceed with this plan. (2) Dehydration Status: Acute Assessment & Plan: We will rehydrate with IV fluids until she is able to tolerate a diet (3) Nausea and vomiting Status: Chronic Assessment & Plan: Antinausea medications Condition Stable Time Spent: < 30 min Venous Thromboembolism VTE Risk Physician Assess for VTE Risk: Yes Patient's VTE Risk: Low VTE Diagnostic Test 2 Days Prior to Admit: No Antithrombotics Is Pt On Any Antithrombotics?: No Problem Qualifiers (1) Nausea and vomiting: Vomiting Intractability: unspecified VILMA ROWAN MD Apr 09, 2019 15:23
[2019-04-09] MEDS ORDERED: ACET-2031 PO (16:19)
[2019-04-09 16:30] LABS: PLATELET COUNT, AUTOMATED 255 K/uL (150-450)
[2019-04-09] MEDS: MORPHINE 2 MG/ML SYR IVP PRN (16:42)
[2019-04-09] MEDS: ONDANSETRON 4 MG/2 ML VIAL IVP PRN (17:59)
[2019-04-09 18:43] VITALS: BP 121/83
[2019-04-09] MEDS ORDERED: clonazePAM 0.5 MG ODT TABDP PO SCH (21:00)
[2019-04-09] MEDS ORDERED: fluvoxaMINE MALEATE 50 MG TAB PO SCH (21:00)
[2019-04-09] MEDS: CARVEDILOL 6.25 MG TAB PO SCH (21:36)
[2019-04-09] MEDS: PANTOPRAZOLE SOD 40 MG IV VIAL IVP SCH (21:37)
[2019-04-09] MEDS: NS(*) 0.9% 1000 ML BAG 1,000 ML IV PRN (23:34)
[2019-04-10] MEDS: MORPHINE 2 MG/ML SYR IVP PRN (00:28)
[2019-04-10 00:36] VITALS: BP 130/90
[2019-04-10] MEDS: ONDANSETRON 4 MG/2 ML VIAL IVP PRN (00:44)
[2019-04-10 03:27] VITALS: BP 122/90
[2019-04-10] MEDS ORDERED: LEVOTHYROXINE SOD 0.05 MG TAB PO SCH (06:00)
[2019-04-10 06:57] LABS: PLATELET COUNT, AUTOMATED 210 K/uL (150-450)
[2019-04-10] MEDS: NS(*) 0.9% 1000 ML BAG 1,000 ML IV PRN (07:30)
[2019-04-10 07:55] VITALS: BP 115/78
[2019-04-10] MEDS ORDERED: ENOXAPARIN 40 MG/0.4ML SYR SC SCH (09:00)
[2019-04-10] MEDS: CARVEDILOL 6.25 MG TAB PO SCH (09:16)
[2019-04-10] MEDS: PANTOPRAZOLE SOD 40 MG IV VIAL IVP SCH (09:16)
--- NOTE | 2019-04-10 10:18 | General Surgery Progress Note ---
Subjective Progress Notes Subjective feels good, wants to go home. No NV overnight. + BM. Physical Exam Vital Signs Date Time Temp Pulse Resp B/P (MAP) Pulse Ox O2 Delivery O2 Flow Rate FiO2 04/10/19 07:55 92 Room Air 04/10/19 07:55 98.1 56 20 115/78 (90) 04/10/19 03:27 0.5 Intake and Output 04/10/19 07:03 Intake Total 960 ml Output Total 20 ml Balance 940 ml Intake IV Total 960 ml Output Emesis 20 ml # Voids 3 # Bowel Movements 1 # Emeses 1 General Appearance: Alert, Awake, No Acute Distress, Afebrile Neuro: No Gross deficits Cardiovascular: Normal Rhythm & Peripheral Pulses Respiratory: No Respiratory Distress, Clear to Auscultation, Other (port site clean) GI: Soft and Non-Tender Musculoskeletal: No Weakness/Pain Integumentary: Skin Intact without Lesion / Mass Psych: Alert & Oriented X3, Appropriate Mood & Affect Result Diagram: 04/10/19 0540 04/10/19 0540 Monitor Interpretation: Normal Sinus Rhythm Assessment and Plan Problems: (1) Right upper quadrant abdominal pain Status: Acute Assessment & Plan: 04/09/19: Will admit for rehydration and continued workup. Will start bowel rest this afternoon and continue bowel rest until her symptoms improve. We'll use intermittent low dose narcotics for pain relief and Zofran for nausea relief. Will check labs including a CBC, BMP, LFTs, and lipase, especially given the questionable infiltrative changes around her pancreatic head. May require MRCP if lipase is elevated to get a better look at her pancreas since we can't really give her IV contrast with the CT scan due to her chronic renal insufficiency. I have explained this plan to her and her in great detail and they seem agreeable and willing to proceed with this plan. 04/10/19: symptoms improved with IVF hydration overnight. Given benign exam will allow clear liquids this am. If claudia PO and Lipase WNL will consider DC later today. Pt agreeable to this plan. (2) Dehydration Status: Acute Assessment & Plan: We will rehydrate with IV fluids until she is able to tolerate a diet. 04/10/19: improved. (3) Nausea and vomiting Status: Chronic Assessment & Plan: Antinausea medications 04/10/19: few dry heaves overnight, pt feels she is at her baseline and has meds at home per report. Time Spent: > 30 min Exam Sepsis Risk: No Definite Risk Problem Qualifiers (1) Nausea and vomiting: Vomiting Intractability: unspecified BRAD VAUGHN MD Apr 10, 2019 10:18
[2019-04-10 10:32] VITALS: Ht 160 cm; Wt 83.2 kg
[2019-04-10] MEDS ORDERED: lamoTRIgine 100 MG TAB PO SCH (10:45)
[2019-04-10] MEDS ORDERED: HEPARIN FLSH (PORT) 500 UN/5ML ONE (13:16)
[2019-04-14] MEDS ORDERED: RANI150C17 PO (08:32)
== END 2019-04-10 13:23 | disposition home or self-care (01) ==
LOC: INTOOBSV 14:53 → MED 14:53
PROVIDERS: ADMIT Surgery; ATTEND Surgery
DX: R10.11 Right upper quadrant pain (principal); E86.0 Dehydration; R11.2 Nausea with vomiting, unspecified
CPT/HCPCS: 36415; 82248; 83690; 85025; A9270; C9113; G0378; G0379; J1642; J2270; J2405; J7030; 82040; 82247; 82310; 82374; 82435; 82565; 82947; 84075; 84132; 84155; 84295; 84450; 84460; 84520

== ENCOUNTER → 2019-04-09 | Outpatient (CLI) | payer MEDICARE ==
--- NOTE | 2019-04-09 14:30 | RADIOLOGY IMAGING REPORT ---
FACILITY: [facility] - [place] PATIENT NAME: Kriss Azevedo : 1980 MR: [id number] V: [id number] EXAM DATE: ORDERING PHYSICIAN: VILMA ROWAN TECHNOLOGIST: Location: [facility] [place] Patient: Kriss Azevedo : 1980 Visit/Account:[id number] Date of Sevice: 04/09/2019 CT ABDOMEN PELVIS W/O CON HISTORY: Right-sided abdominal pain, history of colitis TECHNIQUE: Axial images acquired through the abdomen/pelvis. Coronal and sagittal reformatting also performed. No IV contrast administered.Dose Lowering Technique One of the following dose optimization techniques was utilized in the performance of this exam: Autom ated exposure control; adjustment of the mA and/or kV according to the patient's size; or use of an i terative reconstruction technique. Specific details can be referenced in the facility's radiology C T exam operational policy. COMPARISON: CT abdomen and pelvis September 15, 2018 FINDINGS: Visualized lung bases: There is a small amount scarring in the left lower lobe Hepatobiliary: There is severe diffuse hepatic steatosis. Patient status post cholecystectomy Spleen: Negative. Adrenals: Negative. Pancreas: There is subtle infiltrative changes in the peripancreatic fat adjacent to the head of the pancreas Kidneys ureters and bladder: Again noted are innumerable round masses throughout both kidneys most of which are hypoattenuating although there are several small hyperdense masses as well. Punctate calc ifications within the renal parenchyma bilaterally also again noted. No evidence of hydronephrosis o r hydroureter Genitalia: Status post hysterectomy. There is a 3.2 cm cyst in the right ovary GI: There is no evidence of bowel obstruction or bowel wall thickening there is however mild distent ion of the distalmost portion of the terminal ileum Vessels/spaces/nodes: Negative. Bones/soft tissues: There is a small umbilical hernia containing fat. There are multiple Schmorl's nodes in the lumbar spine Additional findings: None pertinent. IMPRESSION: There is no evidence of bowel wall thickening or bowel obstruction. There is very mild dilatation of the distalmost portion of the terminal ileum 3.2 cm right ovarian cyst Innumerable round masses throughout both kidneys, most of which are hypoattenuating and may represent cysts. There are several hyperattenuating lesions although appear similar to the prior study Severe diffuse hepatic steatosis Report Dictated By: Mei Carbone MD at 04/09/2019 2:05 PM Report E-Signed By: Mei Carbone MD at 04/09/2019 2:21 PM CHAUNCEYN:BENNIE
== END ==
LOC: CT 13:36
PROVIDERS: ATTEND Surgery
DX: N83.201 Unspecified ovarian cyst, right side (principal); K76.89 Other specified diseases of liver
CPT/HCPCS: 74176

== ENCOUNTER → 2019-04-14 | Outpatient (CLI) | payer MEDICARE ==
[2019-04-10 10:32] VITALS: BMI 32.4
[~2019-04-14] MED LIST changes: +ACET-2031 PO
== END ==
LOC: SPU 09:05
PROVIDERS: ATTEND Emergency Medicine
DX: Z02.9 Encounter for administrative examinations, unspecified (principal)

== ENCOUNTER → 2019-04-19 | Outpatient (CLI) | payer MEDICARE ==
[2019-04-10 10:32] VITALS: BMI 32.4
[~2019-04-19] MED LIST changes: +CYAN25005 PO
== END ==
LOC: LAB 10:15
PROVIDERS: ATTEND Surgery
DX: R11.2 Nausea with vomiting, unspecified (principal); R10.9 Unspecified abdominal pain; K86.89 Other specified diseases of pancreas; E03.9 Hypothyroidism, unspecified; K76.0 Fatty (change of) liver, not elsewhere classified; K52.9 Noninfective gastroenteritis and colitis, unspecified; R74.8 Abnormal levels of other serum enzymes; E78.5 Hyperlipidemia, unspecified; N18.3 Chronic kidney disease, stage 3 (moderate); E21.3 Hyperparathyroidism, unspecified; Q61.3 Polycystic kidney, unspecified; R79.89 Other specified abnormal findings of blood chemistry; I12.9 Hypertensive chronic kidney disease with stage 1 through stage 4 chronic kidney disease, or unspecified chronic kidney disease
CPT/HCPCS: 36415; 82040; 82306; 82310; 83735; 83970; 84100; 84550

== ENCOUNTER → 2019-04-21 | Outpatient (CLI) | payer MEDICARE ==
[2019-04-10 10:32] VITALS: BMI 32.4
== END ==
LOC: LAB 08:58
PROVIDERS: ATTEND Surgery
DX: E03.9 Hypothyroidism, unspecified (principal); R11.2 Nausea with vomiting, unspecified; F31.12 Bipolar disorder, current episode manic without psychotic features, moderate; N18.3 Chronic kidney disease, stage 3 (moderate); Q61.3 Polycystic kidney, unspecified; E21.3 Hyperparathyroidism, unspecified; I12.9 Hypertensive chronic kidney disease with stage 1 through stage 4 chronic kidney disease, or unspecified chronic kidney disease
CPT/HCPCS: 36415; 82607

== ENCOUNTER 2019-04-22 00:52 | Day surgery (SDC) | payer MEDICARE ==
[2019-04-10 10:32] VITALS: Ht 165.1 cm; Wt 83.0 kg
[~2019-04-22] VITALS: Ht 165.1 cm; Wt 83.0 kg
[~2019-04-22 00:52] MED LIST changes: -CYAN25005 PO
[2019-04-22 06:19] VITALS: BP 126/89
[2019-04-22] MEDS ORDERED: NORMOSOL R SOLN(*) 1000 ML BAG 1,000 ML IV PRN (06:45)
[2019-04-22] MEDS ORDERED: LIDOCAINE/SOD BICARB 8.4% SYR ID ONE (06:45)
[2019-04-22] MEDS ORDERED: MIDAZOLAM 2 MG/2 ML VIAL IVP PRN (06:45)
[2019-04-22] MEDS ORDERED: PROPOFOL EMUL(*) 10MG/ML 20 ML 20 ML ONE (07:03)
[2019-04-22] MEDS ORDERED: ONDANSETRON 4 MG/2 ML VIAL ONE (07:03)
[2019-04-22] MEDS ORDERED: LIDOCAINE MPF 1% 5 ML VIAL ONE (07:03)
[2019-04-22] MEDS ORDERED: DEXAMETHASONE SOD 4 MG/ML VIAL ONE (07:03)
[2019-04-22] MEDS ORDERED: fentaNYL CITR 100 MCG/2 ML AMP ONE (07:05)
[2019-04-22] MEDS ORDERED: ROPIVACAINE 0.5% 20 ML VIAL ONE (07:15)
[2019-04-22] MEDS ORDERED: LIDO/EPI 1% MDV 1:100,000 20ML INFIL ONE (07:15)
[2019-04-22] MEDS ORDERED: TRAM-420 PO (08:48)
--- NOTE | 2019-04-22 08:52 | Short(Outpt) Discharge Summary ---
Discharge Summary Reason for Hosp/Final Diag: (1) Subcutaneous nodule Status: Chronic Hospital Course & Plan: Right hip nodule excision completed without problems. Departure Discharge to: Home, Self Care Discharge Instructions Home Meds Active Scripts Tramadol Hcl (TRAMADOL HCL) 50 Mg Tablet, 1 TAB PO Q4H, #14 TAB 0 Refills Prov:VILMA ROWAN MD 04/22/19 Ranitidine Hcl (RANITIDINE HCL) 150 Mg Capsule, 1 CAP PO BID, #60 CAPSULE 6 Refills Prov:ANA MARÍA WAGONER MD 04/14/19 Loperamide Hcl (LOPERAMIDE) 2 Mg Capsule, 1 CAPSULE PO BID PRN for DIARRHEA, #60 CAPSULE 6 Refills Prov:VILMA ROWAN MD 04/07/19 Calcitriol (CALCITRIOL) 0.5 Mcg Capsule, 2 CAP PO QDAY, #60 CAPSULE 3 Refills Prov:VILMA ROWAN MD 04/07/19 Losartan Potassium (LOSARTAN POTASSIUM) 50 Mg Tablet, 1 TAB PO HS, #90 TAB 3 Refills Prov:ANA MARÍA WAGONER MD 03/09/19 Pramipexole Di-Hcl (MIRAPEX) 0.125 Mg Tablet, 3 TAB PO QHS, #270 TAB 3 Refills Prov:ANA MARÍA WAGONER MD 03/03/19 Ondansetron (ONDANSETRON ODT) 8 Mg Tab.rapdis, 1 TAB PO BID PRN for NAUSEA/VOMITING, #30 TAB 3 Refills Prov:VILMA ROWAN MD 01/04/19 Omeprazole (OMEPRAZOLE) 40 Mg Capsule.dr, 1 CAP PO BID, #90 CAP 6 Refills Prov:VILMA ROWAN MD 12/29/18 Promethazine Hcl (PROMETHAZINE HCL) 25 Mg Tablet, 1 TAB PO Q8H PRN for NAUSEA/VOMITING, #30 TAB 3 Refills Prov:VILMA ROWAN MD 11/04/18 Glycopyrrolate (GLYCOPYRROLATE) 1 Mg Tablet, 0.5 TAB PO QDAY, #30 TAB 3 Refills Prov:VILMA ROWAN MD 01/26/18 Reported Medications Acetaminophen (ACETAMINOPHEN) 325 Mg Tablet, 325 MG PO Q4-6H PRN for PAIN, TAB 04/09/19 Cyanocobalamin (Vitamin B-12) (VITAMIN B-12) 1,000 Mcg Tablet, 1000 MCG PO DAILY 12/23/18 Levothyroxine Sodium (LEVOTHYROXINE SODIUM) 50 Mcg Tablet, 50 MCG PO QDAY, TAB 12/09/18 Carvedilol (CARVEDILOL) 6.25 Mg Tab, 6.25 MG PO BID, TAB 12/09/18 Pyridoxine Hcl (VITAMIN B-6) 25 Mg Tablet, 50 MG PO DAILY 06/23/18 [Clindamycin] No Conflict Check, 1 SCOTT TOP QDAY 06/02/18 Lamotrigine (LAMOTRIGINE) 150 Mg Tablet, 150 MG PO BID 12/22/17 Minocycline Hcl (MINOCYCLINE HCL) 100 Mg Tablet, 1 TAB PO BID, CAPSULE 10/30/17 Clonazepam (CLONAZEPAM) 2 Mg Tab.rapdis, 1-3 TAB PO QHS, #6 TAB 10/30/17 Perphenazine (PERPHENAZINE) 8 Mg Tablet, 1 TAB PO BID 03/30/17 Fluvoxamine Maleate (FLUVOXAMINE MALEATE) 50 Mg Tablet, 50 MG PO HS 07/20/15 Follow up Referrals: General Surgery - 05/18/19 @ Surgery, General with VILMA ROWAN MD You have a follow up appointment scheduled with Dr. Rowan on 05/18/19, at 3:15pm. Diet: Regular Activity: As Tolerated Special Instructions: You may remove the white surgical dressing on 04/24/19, then you can shower. After showering, leave the incision open to air but leave the steristrips in place until they fall off on their own. Do not immerse the incision for 2 weeks. VILMA ROWAN MD Apr 22, 2019 08:52
--- NOTE | 2019-04-22 08:59 | Post Operative Progress Note ---
Post Operative Progress Note Date: Apr 22, 2019 Time: 08:49 Surgeon: Wayne Dictation number: [id number] Anesthesia: LMA by Dr. Fernandes Pre-Op Diagnosis: Right hip nodule Post-Op Diagnosis: MARICARMEN Findings: C/W lipoma Procedure(s): Right hip nodule excision Specimen Removed:(May be N/A): Right hip nodule Complications: None Fluids: See anesthesia record Estimated Blood Loss: Minimal Date OP Note Dictated: Apr 22, 2019 Time OP Note Dictated: 08:52 VILMA ROWAN MD Apr 22, 2019 08:59
[2019-04-22 09:20] VITALS: BP 122/86
--- NOTE | 2019-04-22 09:34 | OPERATIVE REPORT 1 ---
EVENT DATE: April 22, 2019 SURGEON: Raj Black MD ANESTHESIOLOGIST: Raj Fernandes MD ANESTHESIA: LMA PREOPERATIVE DIAGNOSIS Right hip nodule. POSTOPERATIVE DIAGNOSIS Right hip nodule. PROCEDURE PERFORMED Excision of right hip nodule. COMPLICATIONS None. CONDITION Stable. ESTIMATED BLOOD LOSS Minimal. INDICATIONS This is a 39-year-old female who has a nodule on the lateral aspect of her right hip that is causing her pain and she would like to have it removed. DESCRIPTION OF PROCEDURE The patient was brought to the operating room and placed supine on the operating table. LMA anesthesia was administered and she was placed in the left lateral decubitus position on the table. Her right hip was prepped and draped in sterile fashion. A timeout was completed. I anesthetized the skin over the nodule and then made an incision over the nodule, dissected through the dermis and subcutaneous fat, got into the space where the nodule was located. I long dissected around the nodule and then the nodule was easily removed in one piece from the wound. It was consistent with a benign lipoma. The wound was made hemostatic with pressure, irrigated, dried and closed with interrupted 3-0 Vicryl deep dermal sutures, 4-0 Monocryl running subcuticular sutures. The skin was cleaned and dried and Steri-Strips were applied, followed by sterile surgical dressings. The patient was awakened and LMA removed. She was transported to the recovery room in stable condition having tolerated the procedure without any apparent problems. LAZ
[2019-04-22 09:48] VITALS: BP 118/86
[2019-04-22 09:49] VITALS: BP 105/82
--- NOTE | 2019-04-22 10:00 | NUR ---
0920 SBAR REPORT WAS RECEIVED FROM Frankie BRITO. PATIENT ARRIVED ON ROOM AIR. BOWEL SOUNDS ARE ACTIVE. SHE DENIES ANY PAIN. PRIMAPORE DRESSING REMAINS DRY AND INTACT. BROUGHT INTO ROOM WENT OVER DC INSTRUCTIONS WITH PATIENT AND . THEY VERBALIZED UNDERSTANDING 0943 DR. ROWNA'S NURSE (DYLAN) DE ACCESSED POWERPORT. OCCLUSIVE DRESSING WAS APPLIED AND PORT WAS HEPARIN LOCKED WITH 5 ML. PATIENT TOLERATED THIS WELL 0948 BEGAN DOING ORTHOSTATICS WITH PATIENT. SHE DENIES ANY DIZZINESS OR LIGHTHEADED 0949 PATIENT BEGAN STANDING. SHE WAS STABLE ON HER FEET 0954 PATIENT USED THE RESTROOM 1000 PATIENT WAS TAKEN OUT AND WAS AMBULATORY ON DISCHARGE. DRESSING REMAINS DRY AND INTACT. SEE DISCHARGE ASSESSMENT.
[2019-04-23] MEDS ORDERED: CYAN25005 PO (11:10)
== END 2019-04-22 09:20 | disposition home or self-care (01) ==
LOC: OR 00:52
PROVIDERS: ATTEND Surgery
DX: D17.23 Benign lipomatous neoplasm of skin and subcutaneous tissue of right leg (principal)
CPT/HCPCS: 27043; 88305; J1100; J2001; J2250; J2405; J2704; J2795; J3010